=== PATIENT | female | born 1955 ===

== ENCOUNTER 2023-08-04 09:07 | Outpatient (AMB) | payer OTHER, SELFPAY ==
--- NOTE | 2023-08-04 09:36 | MHC.OFFVIS ---
Vital Signs 08/04/23 09:40 Height 5 ft 2 in Weight 259 lb BMI 47.4 Intake Visit Reasons: Gallstones Intake Note: This patient presents for an assessment or gallstones. Patient c/o; reports nausea, reports occasional vomiting, reports RUQ pain, reports electric shock sensation. Conference Director Required: Yes Conference Director Language: Machine Assembler For Puller Over Name: Vladislav Information Interpreted: non-clinical & clinical Accompanied by: Self / Same As Patient Allergies tramadol [TRAMADOL] Allergy (Unknown, Unverified 08/04/23 09:40) ANAPHYLAXIS Tramadol Allergy (Unknown, Uncoded 08/04/23 09:40) anaphylaxis, Swelling Medication List - Last Reconciled 08/04/23 by Jurgen Perez MD albuterol sulfate 90 mcg/actuation inhalation amlodipine 10 mg PO DAILY aspirin 81 mg PO DAILY atorvastatin 40 mg PO DAILY carboxymethylcellulose sodium 0.5% 1 - 2 drps ophthalmic (eye) BID PRN cetirizine 10 mg PO DAILY cholecalciferol (vitamin D3) 25 mcg PO QAM famotidine (Heartburn Relief (famotidine)) mg PO fluconazole mg PO fluticasone propionate 50 mcg/actuation sprays intranasal isosorbide mononitrate ER 30 mg PO QAM loteprednol etabonate 0.5% 1 drp ophthalmic (eye) BID montelukast 10 mg PO QPM olopatadine 0.1% 1 drp ophthalmic (eye) Q6-8H PRN oxycodone 5 mg PO TID PRN pantoprazole 40 mg PO DAILY ropinirole 0.25 mg PO BEDTIME sevelamer carbonate 1,600 mg PO TID HPI Comments Details: 67-year-old female patient presenting with complaints of nausea and vomiting for approximately 1 year increasing over the past month with associated abdominal pain felt mainly in the left lower quadrant but also in the right lower quadrant and right upper quadrant. The pain is brought on sometimes by eating even drinking water. She reports not eating any fatty foods. Patient underwent ultrasound evaluation on 07/14/2023 which revealed multiple mobile gallstones within the gallbladder but a normal gallbladder wall without thickening or pericholecystic fluid. Negative sonographic Olvera sign was noted. She presents today for evaluation for possible cholecystectomy. [facility] Medical History Osteoarthritis Major depression Mixed hyperlipidemia Vitamin D deficiency Morbid obesity Obstructive sleep apnea Hemodialysis access, arteriovenous graft Chronic kidney disease, stage 5 GERD (gastroesophageal reflux disease) Surgical History H/O umbilical hernia repair Bariatric surgery status No pertinent past surgical history Family History Sister Breast cancer Social History Alcohol intake: never Patient Tobacco Use Status: Never used Tobacco Review of Systems Const Reports body aches and Reports stops breathing during sleep Card Denies chest pain GI Reports abdominal pain, Denies heartburn, Denies nausea and Denies vomiting Psych Reports depression Physical Exam Vital Signs: BMI result Body Mass Index 47.4 Const General: no acute distress Nutritional Appearance: obese Orientation/consciousness: patient oriented x3 Limitations: ambulation with walker HEENT Head: Yes normocephalic and Yes atraumatic Ears: hearing grossly normal bilaterally Eyes Sclerae: sclerae normal Resp Effort & Inspection: normal respiratory effort, no audible wheezes, no cough and no respiratory distress GI Inspection: Yes normal to inspection Palpation (GI): Soft to palpation and Tenderness to palpation present (GI) in the LLQ and in the RLQ; not in the RUQ and Olvera's sign negative Percussion: Yes normal to percussion Auscultation: normal bowel sounds Rectal Exam - Female: deferred Neuro General: patient oriented x3 Extrem General: Yes edema Assessment & Plan Assessment & Plan (1) Cholelithiasis: Code(s): K80.20 - Calculus of gallbladder without cholecystitis without obstruction Category: Medical Qualifiers: Cholelithiasis location: gallbladder Cholecystitis presence: without cholecystitis Biliary obstruction: without biliary obstruction Qualified Code(s): K80.20 - Calculus of gallbladder without cholecystitis without obstruction (2) Symptomatic cholelithiasis: Code(s): K80.20 - Calculus of gallbladder without cholecystitis without obstruction Category: Medical Plan 67-year-old female patient presenting with a 1 year history of nausea, vomiting increasing over the past month with some abdominal pain felt mainly in the lower abdomen. Workup with ultrasound of the abdomen did reveal multiple mobile gallstones within the gallbladder but no evidence of cholecystitis. Examination today does reveal tenderness in the lower abdomen with no significant tenderness in the upper abdomen. I recommended further evaluation with a HIDA scan and suggested she return following the study to review the results. If this is normal, a CT abdomen and pelvis may be helpful. Orders: Orders NM hepatobiliary w pharm Today K80.20 - Calculus of gallbladder without cholecystitis without obstruction Coding Level of Care Code New Pt Level 4 (04676) Diagnoses Calculus of gallbladder without cholecystitis without obstruction K80.20 Cholelithiasis location: gallbladder Cholecystitis presence: without cholecystitis Biliary obstruction: without biliary obstruction Symptomatic cholelithiasis K80.20
[2023-08-04 09:40] VITALS: BMI 47.4
== END 2023-08-04 10:09 | disposition home or self-care (01) ==
PROVIDERS: PCP Registered Nurse; Visit Provider Surgery
DX: K80.20 Calculus of gallbladder without cholecystitis without obstruction (principal)
CPT/HCPCS: 99204

== ENCOUNTER → 2023-08-04 09:07 | Outpatient (BNVA) | payer OTHER, SELFPAY | PROVIDERS: PCP Registered Nurse; Visit Provider Surgery | DX: K80.20 Calculus of gallbladder without cholecystitis without obstruction (principal) | CPT/HCPCS: 99202 ==

== ENCOUNTER → 2023-10-13 07:36 | Outpatient (REF) | payer OTHER, SELFPAY ==
--- NOTE | ~2023-10-13 | NM_ITS ---
EXAMINATION: BILIARY TRACT IMAGING STUDY WITH [facility]CK CLINICAL INFORMATION: Calculus of gallbladder without cholecystitis or obstruction.. COMPARISON: No previous biliary scan is available for comparison. The diagnostic CT scan of the abdomen and pelvis, dated 07/12/2019, is available for comparison.. TECHNIQUE: Serial gamma scintillation camera images were obtained over the abdomen for a total observation period of 91 minutes following the intravenous administration of 5 mCi Tc-99m Niharika friend. FINDINGS: There is good concentration of activity in the liver by 5 minutes post injection. Biliary activity is visualized by 15 minutes. The gallbladder is well visualized by 25 minutes. Small bowel is well visualized by 85 minutes. At 60 minutes post radiopharmaceutical injection, a 30-minute infusion of 2.3 micrograms Sincalide was then begun and an additional 30 minutes of images were obtained. There is only minimal gallbladder emptying. At the end of the study there is almost complete clearance of activity from the liver and visualization of some small bowel activity, but there is abnormal retention of activity in the gallbladder. The calculated gallbladder ejection fraction is 21% (normal gallbladder ejection fraction is greater than 35%). NM/NM hepatobiliary w pharm IMPRESSION: 1. Visualization of the gallbladder is evidence of a patent cystic duct and strong evidence against the diagnosis of acute cholecystitis. The common bile duct is patent. Liver function appears normal. 2. Poor gallbladder emptying and a low gallbladder ejection fraction are evidence of impaired gallbladder contractility and most likely due to chronic cholecystitis. Electronically signed by: Kumar Titus MD 11/03/2023 04:37 PM EDT
== END ==
LOC: HO.NUCMED 07:36
PROVIDERS: Visit Provider Surgery
DX: K80.20 Calculus of gallbladder without cholecystitis without obstruction (principal)
CPT/HCPCS: 78227; A9537; J2805

== ENCOUNTER 2023-12-08 09:41 | Outpatient (AMB) | payer OTHER, SELFPAY ==
--- NOTE | 2023-12-08 09:45 | MHC.OFFVIS ---
Vital Signs 12/08/23 09:52 Height 5 ft 2 in Weight 255 lb BMI 46.6 Intake Visit Reasons: HIDA scan results Intake Note: Patient is seen in office for HIDA scan results, following cholelithiasis. Pt c/o:increase pain since last visit, nausea and vomit after every meal HIDA:10/13/23 Test Preparation Tutor Required: Yes Test Preparation Tutor Language: Associate Professor Of Pathology Services: Test Preparation Tutor Offered & Declined Test Preparation Tutor Name: Inez WRIGHT Information Interpreted: non-clinical & clinical Manager Massage Department: Manager Massage Department Present Accompanied by: Self / Same As Patient Allergies tramadol [TRAMADOL] Allergy (Unknown, Unverified 12/08/23 09:53) ANAPHYLAXIS Tramadol Allergy (Unknown, Uncoded 12/08/23 09:53) anaphylaxis, Swelling Medication List - Last Reconciled 12/08/23 by Jurgen Perez MD albuterol sulfate 90 mcg/actuation inhalation amlodipine 10 mg PO DAILY aspirin 81 mg PO DAILY atorvastatin 40 mg PO DAILY carboxymethylcellulose sodium 0.5% 1 - 2 drps ophthalmic (eye) BID PRN cetirizine 10 mg PO DAILY cholecalciferol (vitamin D3) 25 mcg PO QAM famotidine (Heartburn Relief (famotidine)) mg PO fluconazole mg PO fluticasone propionate 50 mcg/actuation sprays intranasal isosorbide mononitrate ER 30 mg PO QAM loteprednol etabonate 0.5% 1 drp ophthalmic (eye) BID montelukast 10 mg PO QPM olopatadine 0.1% 1 drp ophthalmic (eye) Q6-8H PRN oxycodone 5 mg PO TID PRN pantoprazole 40 mg PO DAILY ropinirole 0.25 mg PO BEDTIME sevelamer carbonate 1,600 mg PO TID HPI Comments Details: 67-year-old female patient presenting with complaints of nausea and vomiting for approximately 1 year increasing over the past month with associated abdominal pain felt mainly in the left lower quadrant but also in the right lower quadrant and right upper quadrant. The pain is brought on sometimes by eating even drinking water. She reports not eating any fatty foods. Patient underwent ultrasound evaluation on 07/14/2023 which revealed multiple mobile gallstones within the gallbladder but a normal gallbladder wall without thickening or pericholecystic fluid. Negative sonographic Olvera sign was noted. She returns today to review the recent CCK HIDA scan performed on 10/13/2023. This revealed visualization of the gallbladder consistent with a patent cystic duct and strong evidence against an acute cholecystitis. There was poor emptying of the gallbladder with an ejection fraction of 21% felt to be suggestive of chronic cholecystitis. The patient reported abdominal discomfort similar to her usual gallbladder attacks during the test. She continues to have fatty food intolerance as noted above. [facility] Medical History Osteoarthritis Major depression Mixed hyperlipidemia Vitamin D deficiency Morbid obesity Obstructive sleep apnea Hemodialysis access, arteriovenous graft Chronic kidney disease, stage 5 GERD (gastroesophageal reflux disease) Surgical History H/O umbilical hernia repair Bariatric surgery status No pertinent past surgical history Family History Sister Breast cancer Social History Alcohol intake: never Patient Tobacco Use Status: Never used Tobacco Review of Systems Const Reports body aches and Reports stops breathing during sleep Card Denies chest pain GI Reports abdominal pain, Denies heartburn, Denies nausea and Denies vomiting Psych Reports depression Physical Exam Vital Signs: BMI result Body Mass Index 46.6 Const General: no acute distress Nutritional Appearance: obese Orientation/consciousness: patient oriented x3 Limitations: ambulation with walker HEENT Head: Yes normocephalic and Yes atraumatic Ears: hearing grossly normal bilaterally Eyes Sclerae: sclerae normal Resp Effort & Inspection: normal respiratory effort, no audible wheezes, no cough and no respiratory distress GI Inspection: Yes normal to inspection Palpation (GI): Soft to palpation and Tenderness to palpation present (GI) in the LLQ and in the RLQ; not in the RUQ and Olvera's sign negative Percussion: Yes normal to percussion Auscultation: normal bowel sounds Rectal Exam - Female: deferred Neuro General: patient oriented x3 Extrem General: Yes edema Assessment & Plan Assessment & Plan (1) Symptomatic cholelithiasis: Code(s): K80.20 - Calculus of gallbladder without cholecystitis without obstruction Category: Medical (2) Chronic cholecystitis: Code(s): K81.1 - Chronic cholecystitis Category: Medical Plan 68-year-old female patient on hemodialysis, presenting with complaints of abdominal pain and food intolerance. Ultrasound revealed gallstones within the gallbladder and subsequent HIDA scan confirmed delayed emptying of the gallbladder suggestive of chronic cholecystitis. Discussed the possibility of laparoscopic cholecystectomy including the risks, alternatives and benefits. She consents to the surgery and will schedule the surgery as a short-stay surgery. This will need to be coordinated with her dialysis schedule (). Coding Level of Care Code Est Pt Level 4 (65155) Diagnoses Symptomatic cholelithiasis K80.20 Chronic cholecystitis K81.1
[2023-12-08 09:52] VITALS: BMI 46.6
== END 2023-12-08 10:13 | disposition home or self-care (01) ==
PROVIDERS: PCP Registered Nurse; Visit Provider Surgery
DX: K80.20 Calculus of gallbladder without cholecystitis without obstruction (principal); K81.1 Chronic cholecystitis
CPT/HCPCS: 99214

== ENCOUNTER → 2023-12-08 09:41 | Outpatient (BNVA) | payer OTHER, SELFPAY | PROVIDERS: PCP Registered Nurse; Visit Provider Surgery | DX: K80.44 Calculus of bile duct with chronic cholecystitis without obstruction (principal) | CPT/HCPCS: 99212 ==

== ENCOUNTER → 2024-01-05 09:35 | Outpatient (BNV) | payer OTHER, SELFPAY | PROVIDERS: PCP Internal Medicine; Visit Provider Internal Medicine Cardiovascular Disease | DX: Z01.818 Encounter for other preprocedural examination (principal) | CPT/HCPCS: 93010 ==

== ENCOUNTER 2024-01-12 05:52 | Day surgery (SDC) | payer OTHER, SELFPAY ==
[2024-01-04 11:51] VITALS: BP 142/64; PULSE 106; RESP 16; O2SAT 96; BMI 47.1
--- NOTE | 2024-01-05 09:35 | ECG_ITS ---
Test Reason : preop Blood Pressure : / mmHG Vent. Rate : 082 BPM Atrial Rate : 082 BPM P-R Int : 136 ms QRS Dur : 086 ms QT Int : 406 ms P-R-T Axes : 049 -06 051 degrees QTc Int : 474 ms Normal sinus rhythm Normal ECG When compared with ECG of 17-AUG-2019 20:22, Minimal criteria for Septal infarct are no longer Present Referred By: Hollie Oseguera Electronically Signed By:Thom Andrea
[2024-01-05 10:25] LABS: MANUAL DIFF FLAG NO
[2024-01-05 11:54] LABS: Basophils Percent Auto 0.5 % (0-2); Eosinophils Absolute Auto 0.1 X10*3/uL (0.0-0.4); Eosinophils Percent Auto 1.6 % (0-4); Hematocrit 32.8 % (37.0-47.0); Hemoglobin 10.1 g/dl (12.0-16.0); Imm Gran Abs Auto 0.02 X10*3/uL (0.00-0.03); Imm Gran Pct Auto 0.3 % (0.0-0.4); Lymphocytes Absolute Auto 0.9 X10*3/uL (1.2-4.9); Mean Corpuscular HGB Conc 30.8 g/dl (31.0-35.0); Mean Corpuscular Hemoglobin 31.4 pg (27.0-33.0); Mean Corpuscular Volume 101.9 fL (80.0-98.0); Mean Platelet Volume 10.3 fL (9.4-12.3); Monocytes Absolute Auto 0.6 X10*3/uL (0.1-1.2); Monocytes Percent Auto 9.6 % (2-11); Neutrophils Absolute Auto 4.6 x10*3/uL (2.0-8.3); Platelet Count 152 X10*3/uL (160-400); Red Blood Count 3.22 X10*6/uL (4.20-5.50); Red Cell Distribution Width 14.6 % (11.0-16.0); White Blood Count 6.3 X10*3/uL (4.8-10.8)
[2024-01-05 12:45] LABS: Anion Gap 18 (12-20); Blood Urea Nitrogen 42 mg/dL (9-16); Calcium 10.3 mg/dL (8.4-10.2); Carbon Dioxide 32 mmol/L (22-29); Chloride 97 mmol/L (96-108); Glucose Random 95 mg/dL (60-115); Potassium 4.8 mmol/L (3.3-5.1); Sodium 142 mmol/L (135-145)
[2024-01-05 12:49] LABS: Creatinine Clr Calc Pharmacy 8.2; Estimated Glomerular Filt Rate 5
[2024-01-12] VITALS (11 sets, daily range): BP systolic 147–186; BP diastolic 56–82; PULSE 61–81; RESP 15–20; TEMP 36.4–36.6; O2SAT 95–100
[2024-01-12] MEDS: 0.9 % Sodium Chloride 1,000 ML 100 ML IVCONT (06:41)
[2024-01-12 07:15] LABS: Anion Gap 18 (12-20); Carbon Dioxide 28 mmol/L (22-29); Chloride 103 mmol/L (96-108); Potassium 4.6 mmol/L (3.3-5.1); Sodium 144 mmol/L (135-145)
--- NOTE | 2024-01-12 07:25 | HO.ANESPROP2 ---
Documented by User: Myla Velasco NP 01/06/24 10:56 HPI - Anesthesia Eval Consult details Narrative: 68yo F for Cholecystectomy Laparoscopic, possible open PAT with Dr Oseguera 01/04/24 ESRD with HD on MWF Renal optimized [facility] Active Problems Active Problems: All Active Problems Chronic cholecystitis (Acute) Symptomatic cholelithiasis (Acute) Cholelithiasis (Acute) Past Medical History Medical History (Updated 01/04/24 @ 13:43 by Bhavna Oquendo RN) Claustrophobia Dependent on walker for ambulation Wears dentures Eye drainage Murmur Constipation Spinal stenosis of lumbosacral region Psoriasis Type 2 diabetes mellitus with diabetic chronic kidney disease Low back pain Abdominal pain Nausea & vomiting Hemodialysis patient Neuropathy Asthma HLD (hyperlipidemia) CAD (coronary artery disease) HTN (hypertension) Osteoarthritis Major depression Mixed hyperlipidemia Vitamin D deficiency Morbid obesity Obstructive sleep apnea Hemodialysis access, arteriovenous graft Chronic kidney disease, stage 5 GERD (gastroesophageal reflux disease) Family History Family History Sister Breast cancer Surgical History Surgical History (Updated 01/01/24 @ 15:11 by Bhavna Oquendo, JOSE ANGEL) Hx of tubal ligation History of bilateral carpal tunnel release (~1982) Hx of colonoscopy Hx of cardiac catheterization (06/25/20) Hx of bariatric surgery (~2014) H/O umbilical hernia repair Bariatric surgery status Social History Social History (Updated 01/04/24 @ 13:30 by Bhavna Oquendo RN) Household Members: None Housing: Apartment Are you a primary outdoor emergency care technician to a significant other at home: No Do you presently have visiting nurse or other home services: Yes ([employer] 10 hours/week) Alcohol intake: never Comment: aware of trip hazard Patient Tobacco Use Status: Never used Tobacco Use of substances other than those prescribed or required for medical reasons: No Have you been hit, kicked, punched, or otherwise hurt by someone within the past year? If so, by whom?: No Are you DNR?: No Advance Directives: No Advance Directives Information Provided: Yes Advance Directives on File: No Recently lost weight without trying: No Meds Allergies Allergy/AdvReac Type Severity Reaction Status Date / Time tramadol [TRAMADOL] Allergy Severe ANAPHYLAXIS Verified 01/04/24 12:20 Home Medications ?Medication ?Instructions ?Recorded ?Confirmed ?Last Taken ?Type albuterol sulfate 90 mcg/actuation 90 mcg inhalation Q4-6H PRN 08/04/23 01/04/24 Unknown History aerosol inhaler Shortness Of Breath Or Wheezing amlodipine 10 mg tablet 10 mg PO DAILY 08/04/23 01/04/24 Unknown History aspirin 81 mg tablet,delayed 81 mg PO DAILY 08/04/23 01/04/24 01/11/24 History release atorvastatin 40 mg tablet 40 mg PO DAILY 08/04/23 01/04/24 Unknown History carboxymethylcellulose sodium 0.5 1 - 2 drp ophthalmic (eye) BID PRN 08/04/23 12/08/23 Unknown History % eye drops cetirizine 10 mg tablet 10 mg PO DAILY 08/04/23 01/04/24 Unknown History cholecalciferol (vitamin D3) 25 25 mcg PO QAM 08/04/23 01/04/24 Unknown History mcg (1,000 unit) tablet famotidine 10 mg tablet (Heartburn 10 mg PO DAILY 08/04/23 01/04/24 Unknown History Relief (famotidine)) fluticasone propionate 50 spray intranasal 08/04/23 12/08/23 Unknown History mcg/actuation nasal spray,suspension isosorbide mononitrate 30 mg 30 mg PO QAM 08/04/23 01/04/24 Unknown History tablet,extended release 24 hr loteprednol etabonate 0.5 % eye 1 drp ophthalmic (eye) BID 08/04/23 12/08/23 Unknown History drops,suspension montelukast 10 mg tablet 10 mg PO QPM 08/04/23 01/04/24 Unknown History olopatadine 0.1 % eye drops 1 drp ophthalmic (eye) Q6-8H PRN 08/04/23 12/08/23 Unknown History oxycodone 5 mg tablet 5 mg PO TID PRN Pain 08/04/23 01/04/24 Unknown History pantoprazole 40 mg tablet,delayed 40 mg PO DAILY 08/04/23 01/04/24 Unknown History release ropinirole 0.25 mg tablet 0.25 mg PO BEDTIME 08/04/23 01/04/24 Unknown History sevelamer carbonate 800 mg tablet 1,600 mg PO TID 08/04/23 01/04/24 Unknown History Exam Height,Weight and Vital Signs: Height 5 ft 2 in Weight 116.8 kg Last Vital Signs Pulse 106 H 01/04/24 11:51 Resp 16 01/04/24 11:51 BP 142/64 H 01/04/24 11:51 Pulse Ox 96 01/04/24 11:51 O2 Del Method Room Air 01/04/24 11:51 Pertinent Lab Results Pertinent Lab Results: Laboratory Tests 01/05/24 10:23 WBC 6.3 RBC 3.22 L Hgb 10.1 L Hct 32.8 L MCV 101.9 H MCH 31.4 MCHC 30.8 L RDW 14.6 Plt Count 152 L MPV 10.3 Immature Gran % (Auto) 0.3 Neut % (Auto) 73.0 Lymph % (Auto) 15.0 L Wilbarger % (Auto) 9.6 Eos % (Auto) 1.6 Baso % (Auto) 0.5 Lymph # (Auto) 0.9 L [place] # (Auto) 0.6 Eos # (Auto) 0.1 Baso # (Auto) 0.0 Abs Immat Gran (auto) 0.02 Absolute Neuts (auto) 4.6 Absolute Nucleated RBC 0.000 Nucleated RBC % (auto) 0.0 Sodium 142 Potassium 4.8 Chloride 97 Carbon Dioxide 32 H Anion Gap 18 BUN 42 H Creatinine 7.82 H* Estim Creat Clear Calc 8.2 Estimated GFR 5 Random Glucose 95 Calcium 10.3 H Narrative Narrative: EKG 01/04/24 Vent. Rate : 082 BPM Atrial Rate : 082 BPM P-R Int : 136 ms QRS Dur : 086 ms QT Int : 406 ms P-R-T Axes : 049 -06 051 degrees QTc Int : 474 ms Normal sinus rhythm Normal ECG When compared with ECG of 17-AUG-2019 20:22, Minimal criteria for Septal infarct are no longer Present Assessment and Plan Assessment Anesthesia Assessment: Chart Reviewed Documented by User: Sandra Whitman DO 01/12/24 08:30 HPI - Anesthesia Eval Consult details Narrative: 68yo F for Cholecystectomy Laparoscopic, possible open ESRD with HD on MWF Renal optimized [facility] Past Medical History Medical History (Updated 01/04/24 @ 13:43 by Bhavna Oquendo, JOSE ANGEL) Claustrophobia Dependent on walker for ambulation Wears dentures Eye drainage Murmur Constipation Spinal stenosis of lumbosacral region Psoriasis Type 2 diabetes mellitus with diabetic chronic kidney disease Low back pain Abdominal pain Nausea & vomiting Hemodialysis patient Neuropathy Asthma HLD (hyperlipidemia) CAD (coronary artery disease) HTN (hypertension) Osteoarthritis Major depression Mixed hyperlipidemia Vitamin D deficiency Morbid obesity Obstructive sleep apnea Hemodialysis access, arteriovenous graft Chronic kidney disease, stage 5 GERD (gastroesophageal reflux disease) Family History Family History Sister Breast cancer Family history of problems with anesthesia: No Surgical History Surgical History (Updated 01/01/24 @ 15:11 by Bhavna Oquendo RN) Hx of tubal ligation History of bilateral carpal tunnel release (~1982) Hx of colonoscopy Hx of cardiac catheterization (06/25/20) Hx of bariatric surgery (~2014) H/O umbilical hernia repair Bariatric surgery status History of Problems with Anesthesia: No Social History Social History (Updated 01/04/24 @ 13:30 by Bhavna Oquendo RN) Household Members: None Housing: Apartment Are you a primary outdoor emergency care technician to a significant other at home: No Do you presently have visiting nurse or other home services: Yes ([employer] 10 hours/week) Alcohol intake: never Comment: aware of trip hazard Patient Tobacco Use Status: Never used Tobacco Use of substances other than those prescribed or required for medical reasons: No Have you been hit, kicked, punched, or otherwise hurt by someone within the past year? If so, by whom?: No Are you DNR?: No Advance Directives: No Advance Directives Information Provided: Yes Advance Directives on File: No Recently lost weight without trying: No Meds Allergies Allergy/AdvReac Type Severity Reaction Status Date / Time tramadol [TRAMADOL] Allergy Severe ANAPHYLAXIS Verified 01/04/24 12:20 Home Medications ?Medication ?Instructions ?Recorded ?Confirmed ?Last Taken ?Type albuterol sulfate 90 mcg/actuation 90 mcg inhalation Q4-6H PRN 08/04/23 01/04/24 Unknown History aerosol inhaler Shortness Of Breath Or Wheezing amlodipine 10 mg tablet 10 mg PO DAILY 08/04/23 01/04/24 Unknown History aspirin 81 mg tablet,delayed 81 mg PO DAILY 08/04/23 01/04/24 01/11/24 History release atorvastatin 40 mg tablet 40 mg PO DAILY 08/04/23 01/04/24 Unknown History carboxymethylcellulose sodium 0.5 1 - 2 drp ophthalmic (eye) BID PRN 08/04/23 12/08/23 Unknown History % eye drops cetirizine 10 mg tablet 10 mg PO DAILY 08/04/23 01/04/24 Unknown History cholecalciferol (vitamin D3) 25 25 mcg PO QAM 08/04/23 01/04/24 Unknown History mcg (1,000 unit) tablet famotidine 10 mg tablet (Heartburn 10 mg PO DAILY 08/04/23 01/04/24 Unknown History Relief (famotidine)) fluticasone propionate 50 spray intranasal 08/04/23 12/08/23 Unknown History mcg/actuation nasal spray,suspension isosorbide mononitrate 30 mg 30 mg PO QAM 08/04/23 01/04/24 Unknown History tablet,extended release 24 hr loteprednol etabonate 0.5 % eye 1 drp ophthalmic (eye) BID 08/04/23 12/08/23 Unknown History drops,suspension montelukast 10 mg tablet 10 mg PO QPM 08/04/23 01/04/24 Unknown History olopatadine 0.1 % eye drops 1 drp ophthalmic (eye) Q6-8H PRN 08/04/23 12/08/23 Unknown History oxycodone 5 mg tablet 5 mg PO TID PRN Pain 08/04/23 01/04/24 Unknown History pantoprazole 40 mg tablet,delayed 40 mg PO DAILY 08/04/23 01/04/24 Unknown History release ropinirole 0.25 mg tablet 0.25 mg PO BEDTIME 08/04/23 01/04/24 Unknown History sevelamer carbonate 800 mg tablet 1,600 mg PO TID 08/04/23 01/04/24 Unknown History Exam Exam Date and Time: 01/12/24 0725 Height,Weight and Vital Signs: Height 5 ft 2 in Weight 116.8 kg Last Vital Signs Pulse 106 H 01/04/24 11:51 Resp 16 01/04/24 11:51 BP 142/64 H 01/04/24 11:51 Pulse Ox 96 01/04/24 11:51 O2 Del Method Room Air 01/04/24 11:51 Vital Signs Pulse Rate 106 H 01/04/24 11:51 Respiratory Rate 16 01/04/24 11:51 Blood Pressure 142/64 H 01/04/24 11:51 Pulse Oximetry 96 01/04/24 11:51 Oxygen Delivery Method Room Air 01/04/24 11:51 Temperature 97.5 F 01/12/24 06:10 Pulse Rate 81 01/12/24 06:10 Respiratory Rate 18 01/12/24 06:10 Blood Pressure 152/71 H 01/12/24 06:10 Pulse Oximetry 96 01/12/24 06:10 Oxygen Delivery Method Room Air 01/12/24 06:10 Airway Mallampati Class: IV TM Dist: >3cm Neck ROM: Limited Loose/Missing/Broken Teeth: Yes (edentulous) Heart: S1S2 Lungs: CTAB Assessment and Plan Assessment Anesthesia Assessment: Anesthesia Plan Discussed and Chart Reviewed Final Anesthetic Review Family History of Problems with Anesthesia: No History of Problems with Anesthesia: No NPO: Yes ASA Class: III Final Preanesthetic Review: No Changes in Pt Med Stat, Meds/Allgs Chart Reviewed, Consent Obtained/Reviewed and Anes Risks/Benef Reviewed Patient Risk: Intermediate Procedure Risk: Intermediate Anesthetic Plan Anesthetic Plan: GA and Agree w/ Assess. and Plan Disposition: Standard PACU
--- NOTE | 2024-01-12 07:28 | MHC.SHP ---
Pre-Procedural Eval Section A - 24 Hr Update-Section A only Date of Service: 01/12/24 The patient is an INPATIENT: No Changes since office visit: Yes Patient answered all questions; No Cold of Flu in the past 2 weeks, No New Medical Problems and No Changes in Medication The patient has been examined within 24 hours of the surgical procedure. The History & Physical has been completed within 30 days and I have reviewed it.: Yes Section B - Complete if H&P > 30 days Chief Complaint: Calculus of gallbladder without cholecystitis with Allergies: Allergies Allergy/AdvReac Type Severity Reaction Status Date / Time tramadol [TRAMADOL] Allergy Severe ANAPHYLAXIS Verified 01/04/24 12:20 Plan Diagnosis/Plan: Unchanged I have reviewed the history and physical and performed a pertinent physical examination on my patient. No changes have occurred unless specified. Time Spent With Patient Time: Total time managing care of this patient today ____ minutes.
--- NOTE | 2024-01-12 08:49 | W.PM.OPN ---
Operative Note Operative Note Date of Service: 01/12/24 Narrative: Preoperative diagnosis: Chronic cholecystitis, cholelithiasis Postoperative diagnosis: Chronic cholecystitis, cholelithiasis, adhesions due to previous ventral hernia repair Procedure: Laparoscopic cholecystectomy, extensive lysis of adhesions Surgeon: Jurgen Perez MD Doctor Assistant: ALEKSANDR Martinez Anesthesia: General endotracheal Indications for procedure: 68-year-old female patient presenting with complaints of abdominal pain in the right upper quadrant associated with nausea and vomiting found to have gallstones on radiologic workup. Patient also underwent HIDA scan which revealed a delayed ejection fraction consistent with chronic cholecystitis. Operative findings: Large gallstone at the neck of the gallbladder. Extensive adhesions in the abdominal wall due to a previous laparoscopic hernia repair requiring lysis of adhesions. Specimen: gallbladder Estimated blood loss: Less than 2 mL Complications: None Procedure details: Patient was brought to the OR and placed in a supine position. After administering general anesthesia the patient's abdomen was prepped with ChloraPrep and draped in a sterile fashion. A surgical time-out was called the consent confirmed. Patient received preoperative antibiotics and Venodyne boots were in place. Local anesthesia consisting of 0.5% Sensorcaine without epinephrine was infiltrated in a periumbilical region. A 5 mm incision was made above the umbilicus in a transverse fashion. The Veress needle was then inserted while elevating abdominal cavity with towel clips. After positive drop test the abdomen was insufflated to a pressure of 15 mm of mercury. The Veress needle was then removed and a 5 mm trocar inserted. The camera was inserted in the abdomen explored. Dense adhesions were noted around the umbilicus. A window was found through the omentum and visualization of the gallbladder and liver edge was identified. A 12 mm trocar was then placed in the epigastrium under direct vision. The camera was then placed in the epigastric port and the adhesions around the umbilicus noted from a prior hernia repair. Mesh was noted within the abdomen with dense adhesions. LigaSure was then used to dissect the adhesions off the mesh to allow better visualization of the right upper quadrant. Two 5 mm trocars placed in the right upper quadrant by the dental front office assistant. The patient was placed in reverse Trendelenburg positioning and rotated to the left. The gallbladder was grasped with the fundus and retracted cephalad by the dental front office assistant. The infundibulum was then grasped and retracted away from the liver bed, also by the dental front office assistant. The Dolphin dissected was then used by the surgeon to dissect the peritoneum off the infundibulum to reveal the junction with the cystic duct. Cystic artery was noted slightly medial and posterior to the cystic duct. After obtaining a critical view the cystic duct was doubly clipped and divided. The cystic artery was then doubly clipped and divided. The gallbladder was then dissected off the liver bed using electrocautery with an L hook. Hemostasis was assured all times using the electrocautery. When the gallbladder is completely dissected off the liver bed was placed in an Endo-Catch bag and brought out through the epigastric incision. The gallbladder was sent to pathology for further examination. The abdomen was then re-examined. The liver bed was irrigated and suctioned dry. No bleeding or bile leak could be identified. CO2 was then evacuated and all trocars removed. Fascia was closed at the epigastric incision using a [id number] 0 Polysorb suture. Skin was closed in all incisions using a subcuticular 4 0 Polysorb suture by both the surgeon and dental front office assistant. Sterile dressings consisting of Steri-Strips, 2 x 2 gauze, and Tegaderm were then applied. The patient tolerated the procedure well. Sponge instrument and needle counts reported as correct. The patient was transferred to PACU in stable condition.
--- OUTSIDE RECORDS SUMMARY | 2024-01-15 13:14 | XMS_ITS | Continuity of Care Document ---
Author Organization [facility] Address [address] [place] [address]- Care Team Providers Care Feed Mill Supervisor Name Role Phone Rolly DUBON, Wendy Primary Care Physician Encounter [facility] [place] Date(s): 02/03/23 - 03/05/23 [facility] [address] [place] [address]- Attending Physician: Carmen Murdock Admitting Physician: AdmtrCarmen Referring Physician: Admtr, Ar8 Allergies, Adverse Reactions, Alerts Substance Reaction Severity Status traMADol 1 sob Active 1Tolerates oxycodone 03/14/19 Immunizations Given and Recorded Vaccine Date Status Refusal Reason influenza virus vaccine, inactivated 11/28/14 Bk rded influenza virus vaccine, inactivated 12/13/13 Give n influenza virus vaccine, inactivated 1 01/14/13 Gi rima influenza virus vaccine, inactivated 2 10/31/11 Gi rima influenza virus vaccine, inactivated 3 11/22/10 Gi rima Zoster Vaccine Live 4 11/27/14 Given tetanus/diphtheria/pertussis, acel(Tdap) 10/28/12 Given pneumococcal 23-valent vaccine 5 07/11/11 Given 1Admin Note: vis given 09/17/2012 2Admin Note: vis given 08/25/11 3Admin Note: VIS GIVEN 09/17/2010 4Result Comment: [11/27/2014] Sterile Diluent Lot# [id number]; Exp: 03/28/2017 5Admin Note: VIS GIVEN 11/28/08 Medications acetaminophen 325 mg oral tablet 650 mg, By Mouth, Every 4 hours, PRN, Refills 0, Maintenance, Pain , Mild, 08/12/17 13:08:48 EDT Start Date: 08/12/17 Status: Ordered albuterol 0.083% inhalation solution 3 mL = 2.5 mg, Inhalation, Every 6 hours, PRN for wheezing, use as needed for wheezing, # 60 each, 11 Refills, Maintenance, 09/01/14 9:41:35, Solution, 3 mL Inhalation Every 6 hours,PRN:for wheezing,Instr:use as needed for wheezing Start Date: 09/01/14 Status: Ordered amLODIPine 10 mg oral tablet 1 tablet = 10 mg, By Mouth, Daily, # 30 tablet, 0 Refills, Maintenance, 10/27/14 11:56:08, Tablet Start Date: 10/27/14 Status: Ordered aspirin 81 mg oral enteric coated tablet 1 tablet = 81 mg, By Mouth, Daily, # 30 tablet, 11 Refills, Maintenance, 09/01/14 9:58:27, EC Tablet Start Date: 09/01/14 Status: Ordered atorvastatin 80 mg oral tablet 1 tablet = 80 mg, By Mouth, Daily, # 30 tablet, 0 Refills, Maintenance, 06/26/20 12:05:00 EDT, Tablet, [facility] #[id number], Partial fill upon patient request if the prescription is for a schedule II opioid drug., 158, cm, 05/10/20 10:52:00 EDT... Start Date: 06/26/20 Stop Date: 07/26/20 Status: Ordered Claritin 10 mg oral tablet 10 mg, 1, tablet, By Mouth, Daily, # 30 tablet, Refills 2, Tot. Refills 2, Maintenance, 07/09/16 9:35:30, Route to Pharmacy Electronically, [id number], [facility] [id number] Start Date: 07/09/16 Status: Ordered Colace sodium 100 mg oral capsule 1 capsule = 100 mg, By Mouth, 2 times a day, PRN for constipation, # 20 capsule, 0 Refills, Maintenance, 10/27/14 10:53:09, Capsule Start Date: 10/27/14 Status: Ordered fluticasone-salmeterol 250 mcg-50 mcg inhalation powder 1, puffs, Inhalation, 2 times a day, # 60 each, Refills 11, Tot. Refills 11, Maintenance, 07/19/18 10:23:02 EDT, Inhaler, Route to Pharmacy Electronically, [id number], [facility] [id number] Start Date: 07/19/18 Stop Date: 07/14/19 Status: Ordered furosemide 80 mg oral tablet 80 mg, By Mouth, Daily, # 30 tablet, Refills 0, Tot. Refills 0, Maintenance, 08/12/17 12:47:28 EDT,Print Requisition Start Date: 08/12/17 Stop Date: 09/11/17 Status: Ordered isosorbide mononitrate 30 mg oral tablet, extended release 30 mg, 1, tablet, By Mouth, Daily in AM, # 90 tablet, Refills 0, Tot. Refills 0, Maintenance, 08/07/20 16:42:00 EDT, Route to Pharmacy Electronically, [id number], Partial fill upon patient request if the prescription is for a schedule II... Start Date: 08/07/20 Status: Ordered melatonin 5 mg oral tablet 1 tablet = 5 mg, By Mouth, Daily at bedtime, PRN for insomnia, # 60 tablet, 0 Refills, Maintenance,03/17/19 16:03:00 EST, Tablet Start Date: 03/17/19 Status: Ordered montelukast 10 mg oral tablet = 10 mg, By Mouth, Daily before dinner, # 30 each, 11 Refills, Maintenance, 09/01/14 9:41:36, Tablet, 10 mg By Mouth Daily before dinner,x30 days Start Date: 09/01/14 Stop Date: 08/27/15 Status: Ordered nitroglycerin 0.4 mg sublingual tablet = 0.4 mg, Sublingual, Every 5 minutes, PRN Chest Pain, # 100 tablet, 0 Refills, Maintenance, 06/26/20 12:04:00 EDT, Tablet, [facility] #[id number], Partial fill upon patient request if the prescription is for a schedule II opioid drug., 158, cm,... Start Date: 06/26/20 Status: Ordered omeprazole 20 mg oral delayed release tablet 1 tablet = 20 mg, By Mouth, Daily, # 30 tablet, 0 Refills, Maintenance, 03/17/19 16:03:00 EST, EC Tablet Start Date: 03/17/19 Status: Ordered oxyCODONE 5 mg oral capsule 1 capsule = 5 mg, By Mouth, Every 6 hours, PRN for pain, 0 Refills, Maintenance, 04/02/18 9:57:15 EST, Capsule Start Date: 04/02/18 Status: Ordered ProAir HFA 90 mcg/inh inhalation aerosol with adapter 1, puffs, Inhalation, Every 6 hours, PRN, # 2 each, Refills 0, Tot. Refills 0, Maintenance, 07/19/18 10:24:10 EDT, Aerosol, Route to Pharmacy Electronically, [id number], [facility] [id number] Start Date: 07/19/18 Stop Date: 08/18/18 Status: Ordered sevelamer carbonate 800 mg oral tablet 2 tablet = 1,600 mg, By Mouth, 3 times a day, # 90 tablet, 0 Refills, Maintenance, 06/22/20 11:28:00 EDT, Tablet, Partial fill upon patient request if the prescription is for a schedule II opioid drug. Start Date: 06/22/20 Status: Ordered Vitamin D3 1000 intl units oral tablet 1 tablet = 1,000 International_Units, By Mouth, Daily, # 30 tablet, 0 Refills, Maintenance, 06/22/20 11:28:00 EDT, Tablet, Partial fill upon patient request if the prescription is for a schedule II opioid drug. Start Date: 06/22/20 Status: Ordered Zofran 4 mg oral tablet 1 tablet = 4 mg, By Mouth, Every 8 hours, PRN as needed for nausea/vomiting, 0 Refills, Maintenance, 06/01/17 10:43:29 EDT, Tablet Start Date: 06/01/17 Status: Ordered Problem List Condition Confirmation Course Effective Dates Status H ealth Status Informant Anemia Confirmed Active Asthma Confirmed Active Chronic low back pain Confirmed Active Chronic kidney disease (CKD) stage 3 1 Confirmed Active Diabetes mellitus Confirmed Active Diabetic neuropathy Confirmed Active End stage renal disease Confirmed Active HTN - Hypertension Confirmed Active Labial cyst Confirmed 08/11/18 Active Non-Italian speaking patient - 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 Follows with [facility] Social History Social History Type Response Smoking Status Former smoker, quit more than 30 days ago entered on: 04/02/18 Sex Cardiology * Event Display: EKG Non BH Authored Date: Patient Care team information Care Team Personnel Name: Martha Fernandez NP Position: Reference Physician Member Role: Primary Care Nurse Address: Address: [address] [place] [address]- [place] Name: Ruthie Mosqueda Position: [facility] Outreach Member Role: Lifetime Consulting Physician Name: Rosaura Sy MD Position: [facility] Outreach Member Role: Lifetime Consulting Physician Name: Garland Jaeger DO Position: [facility] Renal MD Member Role: Lifetime Consulting Physician Address: Address: [address] [place] [address] [address] [facility] [place] [address]- Name: Clem Bright NP Position: [facility] PCO Associate Professional Member Role: Primary Care Nurse Address: Address: [address] [place] [address] [address] [place] [address]- [place] Name: Surekha Yun RN Position: [facility] RN Member Role: Primary Care Nurse Name: Wendy Lofton NP Position: [facility] PCO Associate Professional Member Role: PCP Address: Address: [address] [place] [address]- [place] Name: Simran Dupont RN Position: [facility] SN RN Member Role: Primary Care Nurse Care Team Related Persons Name: LORRAINE YADAV Address: home [address] [place] [address] Name: GLEN ORTIZ Address: [address] [place] [address] Name: JESUS BRAN Address: home [place]ESS [id number]
--- OUTSIDE RECORDS SUMMARY | 2024-01-15 13:14 | XMS_ITS | Continuity of Care Document ---
Author Organization [facility] Address [address] [place] [address]- Care Team Providers Care Orientation And Mobility Instructor Name Role Phone Not on Staff, PCP Primary Care Physician Unavail able Encounter [facility] [place] Date(s): 11/10/23 - 12/10/[address] [address]- Attending Physician: Carmen Murdock Admitting Physician: AdmCarmen morgan Referring Physician: AdmtrCarmen Allergies, Adverse Reactions, Alerts Substance Reaction Severity [...] 09/17/2010 4Result Comment: [11/27/2014] Sterile Diluent Lot# [id number]; Exp: 03/28/2017 5Admin Note: VIS GIVEN 11/28/08 [...] 0 Refills, Maintenance, 06/26/20 12:05:00 EDT, Tablet, [facility] #[id number], Partial fill upon patient request if the prescription is for a schedule II opioid drug., 158, cm, 05/10/20 10:52:00 EDT... Start Date: 06/26/20 Stop Date: 07/26/20 Status: Ordered Claritin 10 mg oral tablet 10 mg, 1, tablet, By Mouth, Daily, # 30 tablet, Refills 2, Tot. Refills 2, Maintenance, 07/09/16 9:35:30, Route to Pharmacy Electronically, [id number], [facility] [id number] Start Date: 07/09/16 Status: Ordered Colace sodium 100 mg oral capsule 1 capsule = 100 mg, By Mouth, 2 times a day, PRN for constipation, # 20 capsule, 0 Refills, Maintenance, 10/27/14 10:53:09, Capsule Start Date: 10/27/14 Status: Ordered esomeprazole 20 mg oral enteric coated capsule 1 capsule = 20 mg, By Mouth, 2 times a day, 30-60 min before eating, # 60 capsule, 3 Refills, Maintenance, 10/06/23 14:05:00 EDT, [id number], Partial fill upon patient request if the prescription is for a schedule II opioid drug., 158, c... Start Date: 10/06/23 Status: Ordered fluticasone-salmeterol 250 mcg-50 mcg inhalation powder 1, puffs, Inhalation, 2 times a day, # 60 each, Refills 11, Tot. Refills 11, Maintenance, 07/19/18 10:23:02 EDT, Inhaler, Route to Pharmacy Electronically, [id number], [facility] [id number] Start Date: 07/19/18 Stop Date: 07/14/19 Status: Ordered furosemide 80 mg oral tablet 80 mg, By Mouth, Daily, # 30 tablet, Refills 0, Tot. Refills 0, Maintenance, 08/12/17 12:47:28 EDT,Print Requisition Start Date: 08/12/17 Stop Date: 09/11/17 Status: Ordered Golytely - oral powder for reconstitution See Instructions, Follow instructions from GI, # 4,000 mL, 0 Refills, Maintenance, 10/06/23 14:06:00 EDT, [id number], Partial fill upon patient request if the prescription is for a schedule II opioid drug., Follow instructions from GI, 1... Start Date: 10/06/23 Status: Ordered isosorbide mononitrate 30 mg oral tablet, extended release 30 mg, 1, tablet, By Mouth, Daily in AM, # 90 tablet, Refills 0, Tot. Refills 0, Maintenance, 08/07/20 16:42:00 EDT, Route to Pharmacy Electronically, [id number], Partial fill upon patient request [...] 0 Refills, Maintenance, 06/26/20 12:04:00 EDT, Tablet, [facility] #[id number], Partial fill upon patient request if the prescription is for a schedule II opioid drug., 158, cm,... Start Date: 06/26/20 Status: Ordered oxyCODONE 5 mg oral capsule [...] 10:24:10 EDT, Aerosol, Route to Pharmacy Electronically, [id number], [facility] [id number] Start Date: 07/19/18 Stop Date: 08/18/18 Status: Ordered Readi-Cat 2 Smoothie [place] 2% oral suspension See Instructions, as instructed by Radiology, # 2 each, 0 Refills, Maintenance, 10/06/23 14:10:00 EDT, [id number], please favor per patient preference, as instructed by Radiology, 158, cm, 10/06/23 13:28:00 EDT, Height, 116.3, kg, ... Start Date: 10/06/23 Status: Ordered sevelamer carbonate 800 mg oral tablet 2 tablet = 1,600 mg, By Mouth, 3 times a day, # 90 tablet, 0 Refills, Maintenance, 06/22/20 11:28:00 EDT, Tablet, Partial fill upon patient request if the prescription is for a schedule II opioid drug. Start Date: 06/22/20 Status: Ordered sucralfate 1 gm/10 ml oral suspension 5 mL = 0.5 Gm, By Mouth, 3 times a day before meals and bedtime, # 600 mL, 3 Refills, Maintenance, 10/06/23 14:05:00 EDT, [id number], Partial fill upon patient request if the prescription is for a schedule II opioid drug., 158, cm, 10/05... 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 Follows with [facility] Social History Social History Type Response Smoking Status Former smoker, quit more than 30 days ago entered on: 04/02/18 Sex Patient Care team information Care Team Personnel Name: Martha Fernandez NP Position: Reference Physician Member Role: Primary Care Nurse Address: Address: [address] [place] [address]- Name: Ruthie Mosqueda Position: [facility] Outreach Member Role: Lifetime Consulting Physician Name: Rosaura Sy MD Position: [facility] Outreach Member Role: Lifetime Consulting Physician Name: Garland Jaeger DO Position: [facility] Renal MD Member Role: Lifetime Consulting Physician Address: Address: [address] [facility] [facility] [place] [place] - Name: Not on Staff, PCP Position: [facility] Physician (General Medicine) Member Role: PCP Name: Clem Bright NP Position: [facility] PCO Associate Professional Member Role: Primary Care Nurse Address: Address: [address] [place] [address] 3rd [place] [address]- Name: Surekha Yun RN Position: [facility] RN Member Role: Primary Care Nurse Name: Simran Dupont RN Position: [facility] SN RN Member Role: Primary Care Nurse Care Team Related Persons Name: LORRAINE YADAV Address: home [address] [place] [address] Name: GLEN ORTIZ Address: [address] [place] [address] Name: JESUS BRAN Address: home [place] [id number]
--- OUTSIDE RECORDS SUMMARY | 2024-01-15 13:14 | XMS_ITS | Continuity of Care Document ---
Author Organization [facility] Delonte Albert n's [facility] Address [address], [address]t [place] [address]- Care Team Providers Care Marketing Program Manager Name Role Phone Wendy Lofton NP Primary Care Physician Encounter [facility] Date(s): 08/06/23 - 08/13/23 [facility] Gable[facility]ilda Dean[facility] [address], 4th [address] [place], [place] [address] Attending Physician: Blessing Nielsen DO Allergies, Adverse Reactions, Alerts Substance Reaction Severity [...] 09/17/2010 4Result Comment: [11/27/2014] Sterile Diluent Lot# [id number]; Exp: 03/28/2017 5Admin Note: VIS GIVEN 11/28/08 [...] 0 Refills, Maintenance, 06/26/20 12:05:00 EDT, Tablet, [facility][id number], Partial fill upon patient request if the prescription is for a schedule II opioid drug., 158, cm, 05/10/20 10:52:00 EDT... Start Date: 06/26/20 Stop Date: 07/26/20 Status: Ordered Claritin 10 mg oral tablet 10 mg, 1, tablet, By Mouth, Daily, # 30 tablet, Refills 2, Tot. Refills 2, Maintenance, 07/09/16 9:35:30, Route to Pharmacy Electronically, [id number], [facility] [address] Start Date: 07/09/16 Status: Ordered Colace sodium [...] 10:23:02 EDT, Inhaler, Route to Pharmacy Electronically, [id number], 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 Follows with [facility]phrology Vital Signs Most recent to oldest [Reference Range]: 1 Height 158 cm (08/06/23 11:20 AM) Weight 116.3 kg (08/06/23 11:20 AM) Body Mass Index [18.5-24.99 kg/m2] 46.59 kg/m2 *>HHI* (08/06/23 11:20 AM) Blood Pressure [90-138/55-84 mm Hg] 134/ 68mm Hg (08/06/23 11:20 AM) Blood pressure sites Arm, right (08/06/23 11:20 AM) Dry Weight 116.3 kg (08/06/23 11:20 AM) Weight Obtained Via Standing scale (08/06/23 11:20 AM) Dry Weight Obtained Via Standing scale (08/06/23 11:20 AM) Social History Social History Type Response Smoking Status Former smoker, quit more than 30 days ago entered on: 04/02/18 Sex Patient Care team information Care Team Personnel Name: Martha Fernandez NP Position: Reference Physician Member Role: Primary Care Nurse Address: Address: [address] [place] [address]- Name: Ruthie Mosqueda Position: [facility] Outreach Member Role: Lifetime Consulting Physician Name: Rosaura Sy MD Position: [facility] Outreach Member Role: Lifetime Consulting Physician Name: Garland Jaeger DO Position: [facility] Renal MD Member Role: Lifetime Consulting Physician Address: Address: [address] [place] [address] [address] [facility] [place] [address]- Name: Clem Bright NP Position: [facility] PCO Associate Professional Member Role: Primary Care Nurse Address: Address: [address] [place] [address] 3rd [place] [address]- Name: Surekha Yun RN Position: [facility] RN Member Role: Primary Care Nurse Name: Wendy Lofton NP Position: [facility] PCO Associate Professional Member Role: PCP Address: Address: [address] [place] [address], [address] [place] [address]- [place] Name: Simran Dupont RN Position: S SN RN Member Role: Primary Care Nurse Care Team Related Persons Name: LORRAINE YADAV Address: home [address] [place] [address] Name: GLEN ORTIZ Address: home [address] [place] [address] Name: JESUS BRAN Address: home [place]ESS [phone] [address]
--- OUTSIDE RECORDS SUMMARY | 2024-01-15 13:14 | XMS_ITS | Continuity of Care Document ---
Author Organization [facility] Address [address] [place] [address]- Care Team Providers Care Web Merchant Name Role Phone Rolly DUBON, Wendy Primary Care Physician Encounter [facility] [id number] Date(s): 04/09/22 - 08/07/22 [facility] [address] [place] [address]- Encounter Diagnosis Encounter for screening colonoscopy(Discharge Diagnosis) - 07/07/22 Attending Physician: Wilmer Bain MD Referring Physician: Wendy Lofton NP Allergies, Adverse Reactions, Alerts Substance Reaction Severity [...] 09/17/2010 4Result Comment: [11/27/2014] Sterile Diluent Lot# [id number]; Exp: 03/28/2017 5Admin Note: VIS GIVEN 11/28/08 [...] 0 Refills, Maintenance, 06/26/20 12:05:00 EDT, Tablet, [facility][id number], Partial fill upon patient request if the prescription is for a schedule II opioid drug., 158, cm, 05/10/20 10:52:00 EDT... Start Date: 06/26/20 Stop Date: 07/26/20 Status: Ordered Claritin 10 mg oral tablet 10 mg, 1, tablet, By Mouth, Daily, # 30 tablet, Refills 2, Tot. Refills 2, Maintenance, 07/09/16 9:35:30, Route to Pharmacy Electronically, [id number], [facility] [address] Start Date: 07/09/16 Status: Ordered Colace sodium [...] 10:23:02 EDT, Inhaler, Route to Pharmacy Electronically, [id number], [facility] [address]782 Start Date: 07/19/18 Stop Date: 07/14/19 Status: [...] 0 Refills, Maintenance, 06/26/20 12:04:00 EDT, Tablet, [facility] #[id number], Partial fill upon patient request if the [...] 10:24:10 EDT, Aerosol, Route to Pharmacy Electronically, [id number], [facility] [address] Start Date: 07/19/18 Stop Date: 08/18/18 Status: [...] Confirmed Active Labial cyst Confirmed 08/11/18 Active Non-Ghanaian speaking patient - pulmonary disease specialist 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 Follows with [facility]ph[facility] Diagnosis Diagnosis Type Effective Dates Health Status Clinical Service Informant Encounter for screening colonoscopy Discharge Diagnosis 07/07/22 Social History Social History Type Response Smoking Status Former smoker, quit more than 30 days ago entered on: 04/02/18 Sex Patient Care team information Care Team Personnel Name: Martha Fernandez NP Position: Reference Physician Member Role: Primary Care Nurse Address: Address: [address] [place] [address]- Name: Ruthie Mosqueda Position: [facility] Outreach Member Role: Lifetime Consulting Physician Name: Rosaura Sy MD Position: [facility] Outreach Member Role: Lifetime Consulting Physician Address: Address: [address] [place] [address]- Name: Garland Jaeger DO Position: [facility] Renal MD Member Role: Lifetime Consulting Physician Address: Address: [address] [place] [address] [address] [facility] [place] [address]- [place] Name: Shun Ulloa Position: [facility] TA Member Role: Lifetime Consulting Physician Name: Clem Bright NP Position: [facility] PCO Associate Professional Member Role: Primary Care Nurse Address: Address: [address] [place] [address] 3rd [place] [address]- [place] Name: Surekha Yun RN Position: [facility] RN Member Role: Primary Care Nurse Name: Wendy Lofton NP Position: [facility] PCO Associate Professional Member Role: PCP Address: Address: [address] [place] [address] [address] [place] [address]- [place] Name: Simran Dupont RN Position: [facility] SN RN Member Role: Primary Care Nurse Care Team Related Persons Name: LORRAINE YADAV Address: home [address] [place] [address] Name: GLEN ORTIZ Address: home [address] [place] [address] Name: JESUS BRAN Address: home [place] [address]ESS [phone]
--- OUTSIDE RECORDS SUMMARY | 2024-01-15 13:14 | XMS_ITS | Continuity of Care Document ---
Author Organization [facility] Address [address] [place] [address]- Care Team Providers Care Order Checker Name Role Phone Wendy Lofton NP Primary Care Physician [phone] Encounter [facility] Date(s): 09/13/19 - 10/13/19 [facility] [address] [place] [address]- [facility] Attending Physician: Carmen Murdock Admitting Physician: AdmtrCarmen Referring Physician: Admtr, Homar8 Allergies, Adverse Reactions, Alerts Substance Reaction Severity Status traMADol sob Active Immunizations Given and Recorded Vaccine Date Status [...] 09/17/2010 4Result Comment: [11/27/2014] Sterile Diluent Lot# [id number]; Exp: 03/28/2017 5Admin Note: VIS GIVEN 11/28/08 [...] Tablet Start Date: 09/01/14 Status: Ordered atorvastatin 20 mg oral tablet 1 tablet = 20 mg, By Mouth, Daily, D/C simvastatin, # 30 tablet, 11 Refills, Maintenance, 09/01/14 9:41:40, Tablet, 1 tablet By Mouth Daily,Instr:D/C simvastatin Start Date: 09/01/14 Status: Ordered Claritin 10 mg oral tablet 10 mg, 1, tablet, By Mouth, Daily, # 30 tablet, Refills 2, Tot. Refills 2, Maintenance, 07/09/16 9:35:30, Route to Pharmacy Electronically, [id number], [facility] [address]31 Start Date: 07/09/16 Status: Ordered Colace sodium [...] 10:23:02 EDT, Inhaler, Route to Pharmacy Electronically, [id number], [facility] [address] Start Date: 07/19/18 Stop Date: 07/14/19 Status: Ordered furosemide 80 mg oral tablet 80 mg, By Mouth, Daily, # 30 tablet, Refills 0, Tot. Refills 0, Maintenance, 08/12/17 12:47:28 EDT,Print [facility] Start Date: 08/12/17 Stop Date: 09/11/17 Status: Ordered melatonin 5 mg oral tablet [...] Date: 09/01/14 Stop Date: 08/27/15 Status: Ordered omeprazole 20 mg oral delayed [...] 10:24:10 EDT, Aerosol, Route to Pharmacy Electronically, [id number], [facility] [address] Start Date: 07/19/18 Stop Date: 08/18/18 Status: Ordered Zofran 4 mg oral tablet 1 tablet = 4 mg, By Mouth, Every 8 hours, PRN as needed for nausea/vomiting, 0 Refills, Maintenance, 06/01/17 10:43:29 EDT, Tablet Start Date: 06/01/17 Status: Ordered Problem List Condition Effective Dates Status Health Status Inform ant Anemia(Confirmed) Active Asthma(Confirmed) Active Breast cyst, solitary(Confirmed) 07/07/11 Active Chronic low back pain(Confirmed) Active CKD stage 3(Confirmed) 1 Active Diabetes mellitus(Confirmed) Active Diabetic neuropathy(Confirmed) Active End stage renal disease(Confirmed) Active HTN - Hypertension(Confirmed) Active Labial cyst(Confirmed) 08/11/18 Active Monoclonal gammopathy(Confirmed) Active Neuropathy(Confirmed) Active GABRIELE (obstructive sleep apnea)(Confirmed) Active Osteoarthritis(Confirmed) Active Umbilical hernia(Confirmed) Active 1CKD Stage III. Follows with [facility] Nephrology Social History Social History Type Response Smoking Status Former smoker, quit more than 30 days ago entered on: 04/02/18 Sex
--- OUTSIDE RECORDS SUMMARY | 2024-01-15 13:14 | XMS_ITS | Continuity of Care Document ---
Author Organization [facility] Address [address] [place] [address]- Care Team Providers Care Electronic Warfare Officer Name Role Phone Wendy Lofton NP Primary Care Physician Encounter [facility] Date(s): 05/10/20 - 06/09/20 [facility] [address] [place] [address] Attending Physician: AdmCarmen morgan Admitting Physician: AdmtrCarmen Referring Physician: Admtr, Ar8 [...] 09/17/2010 4Result Comment: [11/27/2014] Sterile Diluent Lot# [id number]; Exp: 03/28/2017 5Admin Note: VIS GIVEN 11/28/08 [...] Maintenance, 07/09/16 9:35:30, Route to Pharmacy Electronically, [id number], [facility] [address] Start Date: 07/09/16 Status: Ordered Colace sodium [...] 10:23:02 EDT, Inhaler, Route to Pharmacy Electronically, [id number], [facility] [address] Start Date: 07/19/18 Stop Date: 07/14/19 Status: [...] 10:24:10 EDT, Aerosol, Route to Pharmacy Electronically, [id number], [facility] [address] Start Date: 07/19/18 Stop Date: 08/18/18 Status: [...] hernia(Confirmed) Active 1CKD Stage III. Follows with [facility]ph[facility] Social History Social History Type Response Smoking Status Former smoker, quit more than 30 days ago entered on: 04/02/18 Sex
--- OUTSIDE RECORDS SUMMARY | 2024-01-15 13:14 | XMS_ITS | Continuity of Care Document ---
Author Organization [facility] Address [address] [place] [address]- Care Team Providers Care Drier Unloader Name Role Phone Wendy Lofton NP Primary Care Physician [phone] Encounter [facility] Date(s): 10/19/20 - 10/19/[address] [address]- Encounter Diagnosis Left shoulder pain(Final) - 10/19/20 Discharge Disposition: A-D/C Home Attending Physician: Alison Swartz MD Admitting Physician: Alison Swartz MD Referring Physician: Not on Staff, Referring MD Allergies, Adverse Reactions, Alerts Substance Reaction Severity [...] 09/17/2010 4Result Comment: [11/27/2014] Sterile Diluent Lot# [id number]; Exp: 03/28/2017 5Admin Note: VIS GIVEN 11/28/08 [...] 0 Refills, Maintenance, 06/26/20 12:05:00 EDT, Tablet, [facility] #[id number], Partial fill upon patient request if the prescription is for a schedule II opioid drug., 158, cm, 05/10/20 10:52:00 EDT... Start Date: 06/26/20 Stop Date: 07/26/20 Status: Ordered Claritin 10 mg oral tablet 10 mg, 1, tablet, By Mouth, Daily, # 30 tablet, Refills 2, Tot. Refills 2, Maintenance, 07/09/16 9:35:30, Route to Pharmacy Electronically, [id number], [facility] [address] Start Date: 07/09/16 Status: Ordered Colace sodium [...] 10:23:02 EDT, Inhaler, Route to Pharmacy Electronically, [id number], [facility] [address] Start Date: 07/19/18 Stop Date: 07/14/19 Status: [...] 0 Refills, Maintenance, 06/26/20 12:04:00 EDT, Tablet, [facility] #[id number], Partial fill upon patient request if the [...] 10:24:10 EDT, Aerosol, Route to Pharmacy Electronically, [id number], [facility] [address] Start Date: 07/19/18 Stop Date: 08/18/18 Status: [...] hernia(Confirmed) Active 1CKD Stage III. Follows with [facility] Nephrology Results Radiology Reports * Exam Date Time Procedure Performing Provider Status 10/19/20 12:53 PM Chest 2 Views Frontal and Lat Marylu Ware; Luz (Verified) Notes: (Chest 2 Views Frontal and Lat) Reason For Exam: Angina RESULT: Chest 2 Views Frontal and Lat Chest 2 Views Frontal and Lat Hx of Present Illness: pt states thaat the pain was on the L shoulder arm neck and shoulder as wellas a headache. pt states this is something that happens offten when i have panic attacks, i am currently not in any pain .; Reason: Angina; Clinical Question(s): CHF COMPARISON: 06/22/2020 FINDINGS: LINES AND TUBES: None. LUNGS AND PLEURA: Clear lungs. Normal pulmonary vascularity. No pleural effusion. No pneumothorax. HEART, MEDIASTINUM AND ANYA: Heart is normal in size. Normal upper mediastinal and hilar contour. BONES AND SOFT TISSUES: No acute abnormality. IMPRESSION: No acute abnormality. WSN: [id number] Ordering Physician: Chepe Farmer Dictated By: Pierre Smith MD Dictated Date/Time: 10/19/20 1:04 pm Reviewed By: Pierre Smith MD Signed By: Pierre Smith MD Signed Date/Time: 10/19/20 1:04 pm Transcribed By: KALYANI Transcribed Date/Time: 10/19/20 1:04 pm Vital Signs Most recent to oldest [Reference Range]: 1 Oxygen Saturation [94-100 %] 98 % (10/19/20 10:55 AM) Pulse Rate [55-90 bpm] 79 bpm (10/19/20 10:55 AM) Blood Pressure [90-138/55-84 mm Hg] 118/ 68mm Hg (10/19/20 10:55 AM) Respiratory Rate [16-30 br/min] 18 br/mi n (10/19/20 10:55 AM) Temperature [96.8-100.4 DegF] 98.2 DegF (10/19/20 10:55 AM) Liters per Minute 0 L/min (10/19/20 10:55 AM) Mode of Delivery (Oxygen) Room air (10/19/20 10:55 AM) Blood pressure sites Arm, right (10/19/20 10:55 AM) Temperature Route Oral (10/19/20 10:55 AM) Social History Social History Type Response Smoking Status Former smoker, quit more than 30 days ago entered on: 04/02/18 Sex
--- OUTSIDE RECORDS SUMMARY | 2024-01-15 13:14 | XMS_ITS | Continuity of Care Document ---
Author Organization [facility] Address [address] [place] [address]- Care Team Providers Care Instructor Business Education Name Role Phone Rolly DUBON, Wendy Primary Care Physician [place] [facility] [place] 11/06/22 - 03/05/23 [facility] [address] [place] [address]- Attending Physician: Ivan DUBON, Nicolas Arrieta Admitting Physician: Ivan DUBON, Nicolas Arrieta Referring Physician: Rolly DUBON, Wendy Allergies, Adverse Reactions, Alerts Substance Reaction Severity [...] 09/17/2010 4Result Comment: [11/27/2014] Sterile Diluent Lot# [id number]; Exp: 03/28/2017 5Admin Note: VIS GIVEN 11/28/08 [...] 0 Refills, Maintenance, 06/26/20 12:05:00 EDT, Tablet, [facility] #[id number], Partial fill upon patient request if the prescription is for a schedule II opioid drug., 158, cm, 05/10/20 10:52:00 EDT... Start Date: 06/26/20 Stop Date: 07/26/20 Status: Ordered Claritin 10 mg oral tablet 10 mg, 1, tablet, By Mouth, Daily, # 30 tablet, Refills 2, Tot. Refills 2, Maintenance, 07/09/16 9:35:30, Route to Pharmacy Electronically, [id number], [facility] [address] Start Date: 07/09/16 Status: Ordered Colace sodium [...] 10:23:02 EDT, Inhaler, Route to Pharmacy Electronically, [id number], [facility] [address] Start Date: 07/19/18 Stop Date: 07/14/19 Status: [...] 0 Refills, Maintenance, 06/26/20 12:04:00 EDT, Tablet, [facility] #[id number], Partial fill upon patient request if the [...] 10:24:10 EDT, Aerosol, Route to Pharmacy Electronically, [id number], [facility] [address] Start Date: 07/19/18 Stop Date: 08/18/18 Status: [...] Confirmed Active Labial cyst Confirmed 08/11/18 Active Non-Khmer speaking patient - custodian manager 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 Follows with [facility] Nephrology Social History Social History Type Response Smoking Status Former smoker, quit more than 30 days ago entered on: 04/02/18 Sex Patient Care team information Care Team Personnel Name: Martha Fernandez NP Position: Reference Physician Member Role: Primary Care Nurse Address: Address: [address] [place] [address]- Name: Ruthie Mosqueda Position: [facility] Outreach Member Role: Lifetime Consulting Physician Name: Rosaura Sy MD Position: [facility] Outreach Member Role: Lifetime Consulting Physician Name: Garland Jaeger DO Position: [facility] Renal MD Member Role: Lifetime Consulting Physician Address: Address: [address] [place] [address] [address] [facility] [place] [address]- Name: Clem Bright NP Position: [facility] PCO Associate Professional Member Role: Primary Care Nurse Address: Address: [address] [place] [address] 3rd [place] [address]- [place] Name: Surekha Yun RN Position: S RN Member Role: Primary Care Nurse Name: Wendy Lofton NP Position: [facility] PCO Associate Professional Member Role: PCP Address: Address: [address] [place] [address]- [place] Name: Simran Dupont RN Position: [facility] SN RN Member Role: Primary Care Nurse Care Team Related Persons Name: LORRAINE YADAV Address: home [address] [place] [address] Name: GLEN ORTIZ Address: home [address] [place] [address] Name: JESUS BRAN Address: home [place]ESS [phone]
--- OUTSIDE RECORDS SUMMARY | 2024-01-15 13:14 | XMS_ITS | Continuity of Care Document ---
Author Organization [facility] Address [address] [place] [address]- Care Team Providers Care Automatic Die Cutting Machine Operator Name Role Phone Rolly DUBON, Wendy Primary Care Physician [place] [facility] [place] 05/06/22 - 06/05/22 [facility] [address] [place] [address]- Attending Physician: Carmen Murdock Admitting Physician: Admtr, Carmen Referring Physician: Admtr, Ar8 Allergies, Adverse Reactions, [...] 09/17/2010 4Result Comment: [11/27/2014] Sterile Diluent Lot# [id number]; Exp: 03/28/2017 5Admin Note: VIS GIVEN 11/28/08 [...] 0 Refills, Maintenance, 06/26/20 12:05:00 EDT, Tablet, [facility][id number], Partial fill upon patient request if the prescription is for a schedule II opioid drug., 158, cm, 05/10/20 10:52:00 EDT... Start Date: 06/26/20 Stop Date: 07/26/20 Status: Ordered Claritin 10 mg oral tablet 10 mg, 1, tablet, By Mouth, Daily, # 30 tablet, Refills 2, Tot. Refills 2, Maintenance, 07/09/16 9:35:30, Route to Pharmacy Electronically, [id number], [facility] 68644 Start Date: 07/09/16 Status: Ordered Colace sodium [...] 10:23:02 EDT, Inhaler, Route to Pharmacy Electronically, [id number], [facility] 32569 Start Date: 07/19/18 Stop Date: 07/14/19 Status: [...] 0 Refills, Maintenance, 06/26/20 12:04:00 EDT, Tablet, [facility] #[id number], Partial fill upon patient request if the [...] 10:24:10 EDT, Aerosol, Route to Pharmacy Electronically, [id number], [facility] [address]139 Start Date: 07/19/18 Stop Date: 08/18/18 Status: [...] Confirmed Active Labial cyst Confirmed 08/11/18 Active Non-Belarusian speaking patient - clay shop supervisor required Confirmed Active Menopausal state (approximately age 36 per patient) Confirmed Active Monoclonal gammopathy Confirmed Active Neuropathy Confirmed Active GABRIELE (obstructive sleep apnea) Confirmed Active Osteoarthritis Confirmed Active Limited mobility - uses a walker Confirmed Active Last Pap smear 08/11/18 negative with negative HPV Confirmed Active Severe obesity Confirmed Active Umbilical hernia Confirmed Active 1CKD Stage III. Follows with [facility] Nephrology Social History Social History Type Response Smoking Status Former smoker, quit more than 30 days ago entered on: 04/02/18 Sex Patient Care team information Care Team Personnel Name: Martha Fernandez NP Position: Reference Physician Member Role: Primary Care Nurse Address: Address: [address] [place] [address] - Name: Ruthie Mosqueda Position: [facility] Outreach Member Role: Lifetime Consulting Physician Name: Rosaura Sy MD Position: [facility] Outreach Member Role: Lifetime Consulting Physician Address: Address: [address] [place] [address] - Name: Garland Jaeger DO Position: [facility] Renal MD Member Role: Lifetime Consulting Physician Address: Address: [address] [place], [place] [address] [place], [place] - Name: Shun Ulloa Position: [facility] TA Member Role: Lifetime Consulting Physician Name: Clem Bright NP Position: [facility] PCO Associate Professional Member Role: Primary Care Nurse Address: Address: [address] [place] [address] [address] [place] [address]- [place] Name: Surekha Yun RN Position: S RN Member Role: Primary Care Nurse Name: Wendy Lofton NP Position: [facility] PCO Associate Professional Member Role: PCP Address: Address: [address] [place] [address]- [place] Name: Simran Dupont RN Position: [facility] SN RN Member Role: Primary Care Nurse Care Team Related Persons Name: LORRAINE YADAV Address: home [address] [place] [address] Name: GLEN ORTIZ Address: home [address] [place] [address] Name: JESUS BRAN Address: home [place] [address]ESS [id number]
--- OUTSIDE RECORDS SUMMARY | 2024-01-15 13:14 | XMS_ITS | Continuity of Care Document ---
Author Organization [facility] Address [address] [place] [address]- Care Team Providers Care Insulator Technician Name Role Phone Rolly DUBON, Wendy Primary Care Physician Encounter [facility] [place] Date(s): 03/16/19 - 03/18/19 [facility] [address] [place] [address]- [facility] Encounter Diagnosis Back pain(Final) - 03/17/19 Discharge Disposition: A-D/C Home Attending Physician: Silvia Oleary MD Admitting Physician: Odilon Butts MD Referring Physician: Not on Staff, Referring [...] 09/17/2010 4Result Comment: [11/27/2014] Sterile Diluent Lot# [id number]; Exp: 03/28/2017 5Admin Note: VIS GIVEN 11/28/08 [...] Maintenance, 07/09/16 9:35:30, Route to Pharmacy Electronically, [id number], [facility] [address] Start Date: 07/09/16 Status: Ordered Colace sodium [...] 10:23:02 EDT, Inhaler, Route to Pharmacy Electronically, [id number], [facility] 14278 Start Date: 07/19/18 Stop Date: 07/14/19 Status: [...] EST, Tablet Start Date: 03/17/19 Status: Ordered MiraLax oral powder for reconstitution = 17 Gm, By Mouth, Daily, for 7 days, dissolve in water before taking, # 119 Gm, 0 Refills, Acute 03/25/19 10:36:00 EST, 03/18/19 10:36:00 EST, REC Powder, [facility] #[id number], 17 Gm By MouthDaily,x7 days,Instr:dissolve in water before taking... Start Date: 03/18/19 Stop Date: 03/25/19 Status: Ordered montelukast 10 mg oral tablet [...] 10:24:10 EDT, Aerosol, Route to Pharmacy Electronically, [id number], [facility] [address] Start Date: 07/19/18 Stop Date: 08/18/18 Status: [...] hernia(Confirmed) Active 1CKD Stage III. Follows with [facility] Nephrology Results Radiology Reports * Exam Date Time Procedure Performing Provider Status 03/17/19 8:30 PM Thoracic Spine 2 Views Harlan Kerr (Verified) Notes: (Thoracic Spine 2 Views) Reason For Exam: Pain RESULT: Thoracic Spine 2 Views Thoracic Spine 2 Views Reason: Pain; Hx of Present Illness: reports cervical and lunbar back pain, non tramatic, onset days ago, saw primary and had f u appt next week, 8 10, no n t, no recent falls, takes oxycodone 5mg bid for pain w limited relief COMPARISON: None. FINDINGS: There is a broad levoscoliosis of the thoracic spine. There is moderate to severe disc space narrowing at all levels with flowing paraspinal osteophyte formation. No austyn or retrolisthesis. No thoracic spine fracture is visualized. No destructive or sclerotic bone lesion. IMPRESSION: No thoracic spine fracture. Moderate to severe degenerative disc space narrowing. WSN: [id number] Dictated By: John JAUREGUI, Amari Villalpando Dictated Date/Time: 03/17/19 9:06 pm Reviewed By: Amari Lopez MD Signed By: Amari Lopez MD Signed Date/Time: 03/17/19 9:06 pm Transcribed By: KALYANI Transcribed Date/Time: 03/17/19 9:05 pm * Exam Date Time Procedure Performing Provider Status 03/17/19 8:30 PM Lumbar Spine 2 or 3 Views Carmela Kerr; Auth (Verified) Notes: (Lumbar Spine 2 or 3 Views) Reason For Exam: Pain RESULT: Lumbar Spine 2 or 3 Views Lumbar Spine 2 or 3 Views CLINICAL INDICATION: Reason: Pain; Hx of Present Illness: reports cervical and lunbar back pain, non tramatic, onset days ago, saw primary and had f u appt next week, 8 10, no n t, no recent falls, takes oxycodone 5mg bid for pain w limited relief COMPARISONS: 05/09/2013 TECHNIQUE: AP, lateral, and coned down LS junction views were obtained. FINDINGS: There are 5 nonrib-bearing lumbar type vertebra. There is a mild broad rotatory dextroscoliosis which is unchanged. Lumbar vertebral body heights are maintained. Moderate-severe disc space narrowing at L5-S1 with mild disc space narrowing at remaining levels. No lumbar spine fracture.. IMPRESSION: No lumbar spine fracture. Rotatory scoliosis and degenerative disc space narrowing in the lower lumbar spine. No significant interval change. WSN: [id number] Dictated By: Amari Lopez MD Dictated Date/Time: 03/17/19 9:04 pm Reviewed By: Amari Lopez MD Signed By: Amari Lopez MD Signed Date/Time: 03/17/19 9:04 pm Transcribed By: KALYANI Transcribed Date/Time: 03/17/19 8:58 pm Vital Signs Most recent to oldest [Reference Range]: 1 2 3 Height 158 cm (03/18/19 3:02 AM) 158 cm (03/17/19 4:30 PM) Weight 160 kg (03/17/19 4:30 PM) Oxygen Saturation [94-100 %] 98 % (03/18/19 7:00 AM) 97 % (03/18/19 3:02 AM) 100 % (03/17/19 4:29 PM) Pulse Rate [55-90 bpm] 71 bpm (03/18/19 7:00 AM) 96 bpm *H* (03/18/19 3:02 AM) 105 bpm *H* (03/17/19 4:29 PM) Body Mass Index [18.5-24.99] 64.09 *>HHI* (03/17/19 4:30 PM) Blood Pressure [90-138/55-84 mm Hg] 137/62mm Hg (03/18/19 8:36 AM) 137/62mm Hg (03/18/19 7:00 AM) 162/75mm Hg *H* (03/18/19 3:02 AM) Respiratory Rate [16-30 br/min] 16 br/min (03/18/19 7:23 AM) 16 br/min (03/18/19 7:04 AM) 16 br/min (03/18/19 7:04 AM) Temperature [96.8-100.4 DegF] 97.6 DegF (03/18/19 7:00 AM) 98.2 DegF (03/18/19 3:02 AM) 97.7 DegF (03/17/19 4:29 PM) Mode of Delivery (Oxygen) Room air (03/18/19 7:00 AM) Room air (03/18/19 3:02 AM) Room air (03/17/19 4:29 PM) Blood pressure sites Arm, right (03/18/19 7:00 AM) Arm, right (03/18/19 3:02 AM) Arm, left (03/17/19 4:29 PM) Temperature Route Oral (03/18/19 7:00 AM) Oral (03/18/19 3:02 AM) Oral (03/17/19 4:29 PM) Dry Weight 160 kg (03/17/19 4:30 PM) Social History Social History Type Response Smoking Status Former smoker, quit more than 30 days ago entered on: 04/02/18 Sex
--- OUTSIDE RECORDS SUMMARY | 2024-01-15 13:14 | XMS_ITS | Continuity of Care Document ---
Author Organization [facility] Address [address], [address]t [place] [address]- Care Team Providers Care Sales Assoc Name Role Phone Wendy Lofton NP Primary Care Physician [phone] Encounter [facility] [place] Date(s): 02/13/22 - 03/15/22 [facility] [address], [address] [place], [place] [address] Attending Physician: AdmCarmen morgan Admitting Physician: AdmtrCarmen [...] 09/17/2010 4Result Comment: [11/27/2014] Sterile Diluent Lot# [id number]; Exp: 03/28/2017 5Admin Note: VIS GIVEN 11/28/08 [...] 0 Refills, Maintenance, 06/26/20 12:05:00 EDT, Tablet, [facility][id number], Partial fill upon patient request if the prescription is for a schedule II opioid drug., 158, cm, 05/10/20 10:52:00 EDT... Start Date: 06/26/20 Stop Date: 07/26/20 Status: Ordered Claritin 10 mg oral tablet 10 mg, 1, tablet, By Mouth, Daily, # 30 tablet, Refills 2, Tot. Refills 2, Maintenance, 07/09/16 9:35:30, Route to Pharmacy Electronically, [id number], [facility] [address] Start Date: 07/09/16 Status: Ordered Colace sodium [...] 10:23:02 EDT, Inhaler, Route to Pharmacy Electronically, [id number], [facility] [address] Start Date: 07/19/18 Stop Date: 07/14/19 Status: [...] 0 Refills, Maintenance, 06/26/20 12:04:00 EDT, Tablet, [facility] #[id number], Partial fill upon patient request if the [...] 10:24:10 EDT, Aerosol, Route to Pharmacy Electronically, [id number], [facility] [address] Start Date: 07/19/18 Stop Date: 08/18/18 Status: [...] Confirmed Active Labial cyst Confirmed 08/11/18 Active Non-Bahamian speaking patient - pattern hand required Confirmed Active Menopausal state (approximately age 36 per patient) Confirmed Active Monoclonal gammopathy Confirmed Active Neuropathy Confirmed Active GABRIELE (obstructive sleep apnea) Confirmed Active Osteoarthritis Confirmed Active Limited mobility - uses a walker Confirmed Active Last Pap smear 08/11/18 negative with negative HPV Confirmed Active Severe obesity Confirmed Active Umbilical hernia Confirmed Active 1CKD Stage III. Follows with [facility] Nephrology Social History Social History Type Response Smoking Status Former smoker, quit more than 30 days ago entered on: 04/02/18 Sex Patient Care team information Care Team Personnel Name: Martha Fernandez NP Position: Reference Physician Member Role: Primary Care Nurse Address: Address: [address] [place] [address]- [place] Name: Ruthie Mosqueda Position: [facility] Outreach Member Role: Lifetime Consulting Physician Name: Rosaura Sy MD Position: [facility] Outreach Member Role: Lifetime Consulting Physician Address: Address: [address] [place] [address]- [place] Name: Garland Jaeger DO Position: [facility] Renal MD Member Role: Lifetime Consulting Physician Address: Address: [address] [place] [address] [address] [facility] [place] [address]- [place] Name: Clem Bright NP Position: [facility] PCO Associate Professional Member Role: Primary Care Nurse Address: Address: [address] [place] [address] 3rd [place] [address]- [place] Name: Surekha Yun RN Position: [facility] RN Member Role: Primary Care Nurse Name: Wendy Lofton NP Position: [facility] PCO Associate Professional Member Role: PCP Address: Address: [address] [place] [address]- [place] Name: Simran Dupont RN Position: [facility] SN RN Member Role: Primary Care Nurse Care Team Related Persons Name: LORRAINE YADAV Address: home [address] [place] [address] Name: GLEN ORTIZ Address: home [address] [place] [address] Name: JESUS BRAN Address: home [place]DRESS [id number]
--- OUTSIDE RECORDS SUMMARY | 2024-01-15 13:15 | XMS_ITS | Continuity of Care Document ---
Author Organization [facility] Address [address], 4t [place] [address]- Care Team Providers Care Divorce Mediator Name Role Phone Wendy Lofton NP Primary Care Physician [phone] [place] [facility] [place]22 [facility] [address], 4th [address] [place], [place] [address] Allergies, Adverse Reactions, Alerts Substance Reaction Severity [...] 09/17/2010 4Result Comment: [11/27/2014] Sterile Diluent Lot# [id number]; Exp: 03/28/2017 5Admin Note: VIS GIVEN 11/28/08 [...] 0 Refills, Maintenance, 06/26/20 12:05:00 EDT, Tablet, [facility] #[id number], Partial fill upon patient request if the prescription is for a schedule II opioid drug., 158, cm, 05/10/20 10:52:00 EDT... Start Date: 06/26/20 Stop Date: 07/26/20 Status: Ordered Claritin 10 mg oral tablet 10 mg, 1, tablet, By Mouth, Daily, # 30 tablet, Refills 2, Tot. Refills 2, Maintenance, 07/09/16 9:35:30, Route to Pharmacy Electronically, [id number], [facility] [address] Start Date: 07/09/16 Status: Ordered Colace sodium [...] 10:23:02 EDT, Inhaler, Route to Pharmacy Electronically, [id number], [facility] [address] Start Date: 07/19/18 Stop Date: 07/14/19 Status: [...] 0 Refills, Maintenance, 06/26/20 12:04:00 EDT, Tablet, [facility] #[id number], Partial fill upon patient request if the prescription is for a schedule II opioid drug., 158, cm,... Start Date: 06/26/20 Status: Ordered omeprazole 20 mg oral delayed release tablet 1 tablet = 20 mg, By Mouth, Daily, # 30 tablet, 0 Refills, Maintenance, 01/23/20 16:03:00 EST, EC Tablet Start Date: 03/17/19 [...] 10:24:10 EDT, Aerosol, Route to Pharmacy Electronically, [id number], [facility] [address] Start Date: 07/19/18 Stop Date: 08/18/18 Status: [...] Confirmed Active Labial cyst Confirmed 08/11/18 Active Non-Nepali speaking patient - women's studies lecturer required Confirmed Active Menopausal state (approximately age 36 per patient) Confirmed Active Monoclonal gammopathy Confirmed Active Neuropathy Confirmed Active GABRIELE (obstructive sleep apnea) Confirmed Active Osteoarthritis Confirmed Active Limited mobility - uses a walker Confirmed Active Last Pap smear 08/11/18 negative with negative HPV Confirmed Active Severe obesity Confirmed Active Umbilical hernia Confirmed Active 1CKD Stage III. Follows with [facility] Nephrology Social History Social History Type Response Smoking Status Former smoker, quit more than 30 days ago entered on: 04/02/18 Sex Patient Care team information Care Team Personnel Name: Martha Fernandez NP Position: Reference Physician Member Role: Primary Care Nurse Address: Address: [address] [place] [address] [address] [employer] [place], [place] - Name: Ruthie Mosqueda Position: [facility] Outreach Member Role: Lifetime Consulting Physician Name: Rosaura Sy MD Position: [facility] Outreach Member Role: Lifetime Consulting Physician Address: Address: [address] [place] [address] - Name: Garland Jaeger DO Position: [facility] Renal MD Member Role: Lifetime Consulting Physician Address: Address: [address] [facility] [place], [place] - Name: Clem Bright NP Position: [facility] PCO Associate Professional Member Role: Primary Care Nurse Address: Address: [address] [place] [address] 3rd floor [place], [place] - [place] Name: Surekha Yun RN Position: [facility] RN Member Role: Primary Care Nurse Name: Wendy Lofton NP Position: [facility] PCO Associate Professional Member Role: PCP Address: Address: [address] [place] [address] [address] [place], [place] - [place] Name: Simran Dupont RN Position: [facility] SN RN Member Role: Primary Care Nurse Care Team Related Persons Name: LORRAINE YADAV Address: home [address] [place] [address] Name: GLEN ORTIZ Address: home [address] [place] [address] Name: JESUS BRAN Address: home [place]ESS [id number]
--- OUTSIDE RECORDS SUMMARY | 2024-01-15 13:15 | XMS_ITS | Continuity of Care Document ---
Author Organization [facility] Address [address] [place] [address]- Care Team Providers Care Information Support Project Manager Name Role Phone Not on Staff, PCP Primary Care Physician Unavail able [place] [facility] [place](s): 11/04/23 - 12/10/[address] [address]- Attending Physician: Kranthi Rinaldi MD Admitting Physician: Kranthi Rinaldi MD Referring Physician: Kranthi Rinaldi MD Allergies, Adverse Reactions, Alerts Substance Reaction [...] 09/17/2010 4Result Comment: [11/27/2014] Sterile Diluent Lot# [id number]; Exp: 03/28/2017 5Admin Note: VIS GIVEN 11/28/08 [...] 0 Refills, Maintenance, 06/26/20 12:05:00 EDT, Tablet, [facility][id number], Partial fill upon patient request if the prescription is for a schedule II opioid drug., 158, cm, 05/10/20 10:52:00 EDT... Start Date: 06/26/20 Stop Date: 07/26/20 Status: Ordered Claritin 10 mg oral tablet 10 mg, 1, tablet, By Mouth, Daily, # 30 tablet, Refills 2, Tot. Refills 2, Maintenance, 07/09/16 9:35:30, Route to Pharmacy Electronically, [id number], [facility] [address] Start Date: 07/09/16 Status: Ordered Colace sodium [...] Refills, Maintenance, 10/06/23 14:05:00 EDT, [facility], Partial fill upon patient request if the prescription is for a schedule II opioid drug., 158, c... Start Date: 10/06/23 Status: Ordered fluticasone-salmeterol 250 mcg-50 mcg inhalation powder 1, puffs, Inhalation, 2 times a day, # 60 each, Refills 11, Tot. Refills 11, Maintenance, 07/19/18 10:23:02 EDT, Inhaler, Route to Pharmacy Electronically, [id number], [facility] [address] Start Date: 07/19/18 Stop Date: 07/14/19 Status: Ordered furosemide 80 mg oral tablet 80 mg, By Mouth, Daily, # 30 tablet, Refills 0, Tot. Refills 0, Maintenance, 08/12/17 12:47:28 EDT,Print Requisition Start Date: 08/12/17 Stop Date: 09/11/17 Status: Ordered Golytely - oral powder for reconstitution See Instructions, Follow instructions from GI, # 4,000 mL, 0 Refills, Maintenance, 10/06/23 14:06:00 EDT, [facility], Partial fill upon patient request if the prescription is for a schedule II opioid drug., Follow instructions from GI, 1... Start Date: 10/06/23 Status: Ordered isosorbide mononitrate 30 mg oral tablet, extended release 30 mg, 1, tablet, By Mouth, Daily in AM, # 90 tablet, Refills 0, Tot. Refills 0, Maintenance, 08/07/20 16:42:00 EDT, Route to Pharmacy Electronically, [id number], Partial fill upon patient request [...] 0 Refills, Maintenance, 06/26/20 12:04:00 EDT, Tablet, [facility] #[id number], Partial fill upon patient request if the [...] 10:24:10 EDT, Aerosol, Route to Pharmacy Electronically, [id number], [facility] [address] Start Date: 07/19/18 Stop Date: 08/18/18 Status: Ordered Readi-Cat 2 Smoothie Mingo 2% oral suspension See Instructions, as instructed [...] Confirmed Active Labial cyst Confirmed 08/11/18 Active Non-Venezuelan speaking patient - chief service dispatcher 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 Follows with [facility] Nephrology Social History Social History Type Response Smoking Status Former smoker, quit more than 30 days ago entered on: 04/02/18 Sex Patient Care team information Care Team Personnel Name: Martha Fernandez NP Position: Reference Physician Member Role: Primary Care Nurse Address: Address: [address] [place] [address]- Name: Ruthie Mosqueda Position: [facility] Outreach Member Role: Lifetime Consulting Physician Name: Rosaura Sy MD Position: [facility] Outreach Member Role: Lifetime Consulting Physician Name: Garland Jaeger DO Position: [facility] Renal MD Member Role: Lifetime Consulting Physician Address: Address: [address] [place] [address] [address] [facility] [place] [address]- Name: Not on Staff, PCP Position: [facility] Physician (General Medicine) Member Role: PCP Name: Clem Bright NP Position: [facility] PCO Associate Professional Member Role: Primary Care Nurse Address: Address: [address] [place] [address] 3rd floor [place], [place] - Name: Surekha Yun RN Position: [facility] RN Member Role: Primary Care Nurse Name: Simran Dupont RN Position: [facility] SN RN Member Role: Primary Care Nurse Care Team Related Persons Name: LORRAINE YADAV Address: home [address] [place] [address] Name: GLEN ORTIZ Address: home [address] [place] [address] Name: JESUS BRAN Address: home [place]ESS [id number]
--- OUTSIDE RECORDS SUMMARY | 2024-01-15 13:15 | XMS_ITS | Continuity of Care Document ---
Author Organization [facility] Address [address] [place] [address]- Care Team Providers Care Assistant Winemaker Name Role Phone Rolly DUBON, Wendy Primary Care Physician [phone] Encounter [facility] [place] Date(s): 12/21/19 - 03/03/20 [facility] [address], [place] [address] Attending Physician: Vu Haas MD Admitting Physician: Samina JAUREGUI, Vu Referring Physician: Wendy Lofton NP Allergies, Adverse [...] 09/17/2010 4Result Comment: [11/27/2014] Sterile Diluent Lot# [id number]; Exp: 03/28/2017 5Admin Note: VIS GIVEN 11/28/08 [...] Maintenance, 07/09/16 9:35:30, Route to Pharmacy Electronically, [id number], [facility] [address] Start Date: 07/09/16 Status: Ordered Colace sodium [...] 10:23:02 EDT, Inhaler, Route to Pharmacy Electronically, [id number], [facility] [address] Start Date: 07/19/18 Stop Date: 07/14/19 Status: [...] 10:24:10 EDT, Aerosol, Route to Pharmacy Electronically, [id number], [facility] [address] Start Date: 07/19/18 Stop Date: 08/18/18 Status: [...] hernia(Confirmed) Active 1CKD Stage III. Follows with [facility] Nephrology Social History Social History Type Response Smoking Status Former smoker, quit more than 30 days ago entered on: 04/02/18 Sex
--- OUTSIDE RECORDS SUMMARY | 2024-01-15 13:15 | XMS_ITS | Continuity of Care Document ---
Author Organization [facility] Address [address] [place] [address]- Care Team Providers Care Solar Installation Crew Supervisor Name Role Phone Rolly DUBON, Wendy Primary Care Physician Encounter [facility] [place] Date(s): 02/10/20 - 06/09/20 [facility] [address], [place] [address] Attending Physician: Vu Haas MD Admitting Physician: Vu Haas MD Referring Physician: Wendy Lofton NP Allergies, [...] 09/17/2010 4Result Comment: [11/27/2014] Sterile Diluent Lot# [id number]; Exp: 03/28/2017 5Admin Note: VIS GIVEN 11/28/08 [...] Maintenance, 07/09/16 9:35:30, Route to Pharmacy Electronically, [id number], [facility] [address] Start Date: 07/09/16 Status: Ordered Colace sodium [...] 10:23:02 EDT, Inhaler, Route to Pharmacy Electronically, [id number], [facility] [address] Start Date: 07/19/18 Stop Date: 07/14/19 Status: [...] 10:24:10 EDT, Aerosol, Route to Pharmacy Electronically, [id number], [facility] [address] Start Date: 07/19/18 Stop Date: 08/18/18 Status: Ordered Zofran 4 mg oral tablet 1 tablet = 4 mg, By Mouth, Every 8 hours, PRN as needed for nausea/vomiting, 0 Refills, Maintenance, 06/01/17 10:43:29 EDT, Tablet Start Date: 06/01/17 Status: Ordered Problem List Condition Effective Dates Status Health Status Inform ant Anemia(Confirmed) Active Asthma(Confirmed) Active Breast cyst, solitary(Confirmed) 5/14/12 Active Chronic low back pain(Confirmed) Active CKD stage 3(Confirmed) 1 Active Diabetes mellitus(Confirmed) Active Diabetic neuropathy(Confirmed) Active End stage renal disease(Confirmed) Active HTN - Hypertension(Confirmed) Active Labial cyst(Confirmed) 08/11/18 Active Monoclonal gammopathy(Confirmed) Active Neuropathy(Confirmed) Active GABRIELE (obstructive sleep apnea)(Confirmed) Active Osteoarthritis(Confirmed) Active Umbilical hernia(Confirmed) Active 1CKD Stage III. Follows with [facility] Nephrology Social History Social History Type Response Smoking Status Former smoker, quit more than 30 days ago entered on: 04/02/18 Sex
--- OUTSIDE RECORDS SUMMARY | 2024-01-15 13:15 | XMS_ITS | Continuity of Care Document ---
Author Organization [facility] ter Address [address] [place] [address]- Care Team Providers Care Real Estate Representative Name Role Phone Rolly DUBON, Wendy Primary Care Physician [place] [facility] [place] - 02/22/[address] [address] Attending Physician: Lina DUBON, Abbey Hutchison Admitting Physician: Lina DUBON, Abbey Hutchison Referring Physician: Lina DUBON, Abbey Hutchison Allergies, Adverse Reactions, Alerts Substance Reaction Severity [...] 09/17/2010 4Result Comment: [11/27/2014] Sterile Diluent Lot# [id number]; Exp: 03/28/2017 5Admin Note: VIS GIVEN 11/28/08 [...] 0 Refills, Maintenance, 06/26/20 12:05:00 EDT, Tablet, [facility]75015, Partial fill upon patient request if the prescription is for a schedule II opioid drug., 158, cm, 05/10/20 10:52:00 EDT... Start Date: 06/26/20 Stop Date: 07/26/20 Status: Ordered Claritin 10 mg oral tablet 10 mg, 1, tablet, By Mouth, Daily, # 30 tablet, Refills 2, Tot. Refills 2, Maintenance, 07/09/16 9:35:30, Route to Pharmacy Electronically, [id number], [facility] [address] Start Date: 07/09/16 Status: Ordered Colace sodium [...] 10:23:02 EDT, Inhaler, Route to Pharmacy Electronically, [id number], [facility] [address] Start Date: 07/19/18 Stop Date: 07/14/19 Status: [...] 0 Refills, Maintenance, 06/26/20 12:04:00 EDT, Tablet, [facility] #25241, Partial fill upon patient request if the [...] 10:24:10 EDT, Aerosol, Route to Pharmacy Electronically, [id number], [facility] [address] Start Date: 07/19/18 Stop Date: 08/18/18 Status: [...] Confirmed Active Labial cyst Confirmed 08/11/18 Active Non-Slovenian speaking patient - medical interpreter required Confirmed Active Menopausal state (approximately age 36 per patient) Confirmed Active Monoclonal gammopathy Confirmed Active Neuropathy Confirmed Active GABRIELE (obstructive sleep apnea) Confirmed Active Osteoarthritis Confirmed Active Limited mobility - uses a walker Confirmed Active Last Pap smear 08/11/18 negative with negative HPV Confirmed Active Severe obesity Confirmed Active Umbilical hernia Confirmed Active 1CKD Stage III. Follows with [facility] Nephrology Social History Social History Type Response Smoking Status Former smoker, quit more than 30 days ago entered on: 04/02/18 Sex Patient Care team information Care Team Personnel Name: Martha Fernandez NP Position: Reference Physician Member Role: Primary Care Nurse Address: Address: [address] [place] [address] [address] [place] [address]- [place] Name: Ruthie Mosqueda Position: [facility] Outreach Member Role: Lifetime Consulting Physician Name: Rosaura Sy MD Position: [facility] Outreach Member Role: Lifetime Consulting Physician Address: Address: [address] [place] [address]- Name: Garland Jaeger DO Position: [facility] Renal MD Member Role: Lifetime Consulting Physician Address: Address: [address] [facility] [place] [address]- [place] Name: Clem Bright NP Position: [facility] PCO Associate Professional Member Role: Primary Care Nurse Address: Address: [address] [facility] [address]rd [place] [address]- [place] Name: Surekha Yun RN Position: S RN Member Role: Primary Care Nurse Name: Wendy Lofton NP Position: [facility] PCO Associate Professional Member Role: PCP Address: Address: [address] [place] [address] [address] [place] [address]- [place] Name: Simran Dupont RN Position: [facility] SN RN Member Role: Primary Care Nurse Care Team Related Persons Name: LORRAINE YADAV Address: home [address] [place] [address] Name: GLEN ORTIZ Address: [address] [place] [address] Name: JESUS BRAN Address: home [place] [address]ESS [id number]
--- OUTSIDE RECORDS SUMMARY | 2024-01-15 13:15 | XMS_ITS | Continuity of Care Document ---
Author Organization [facility] Address [address] [place] [address]- Care Team Providers Care Global Commodity Manager Name Role Phone Wendy Lofton NP Primary Care Physician Encounter [facility] Date(s): 10/28/19 - 11/27/19 [facility] [address] [place] [address]- [facility] Allergies, Adverse Reactions, Alerts Substance Reaction Severity [...] 09/17/2010 4Result Comment: [11/27/2014] Sterile Diluent Lot# [id number]; Exp: 03/28/2017 5Admin Note: VIS GIVEN 11/28/08 [...] Maintenance, 07/09/16 9:35:30, Route to Pharmacy Electronically, [id number], [facility] [address] Start Date: 07/09/16 Status: Ordered Colace sodium [...] 10:23:02 EDT, Inhaler, Route to Pharmacy Electronically, [id number], [facility] [address] Start Date: 07/19/18 Stop Date: 07/14/19 Status: [...] 10:24:10 EDT, Aerosol, Route to Pharmacy Electronically, [id number], [facility] [address] Start Date: 07/19/18 Stop Date: 08/18/18 Status: [...] hernia(Confirmed) Active 1CKD Stage III. Follows with [facility] Nephrology Social History Social History Type Response Smoking Status Former smoker, quit more than 30 days ago entered on: 04/02/18 Sex
--- OUTSIDE RECORDS SUMMARY | 2024-01-15 13:15 | XMS_ITS | Continuity of Care Document ---
Author Organization [facility] ter Address [address] [place] [address]- Care Team Providers Care Bag Shaker Name Role Phone Rolly DUBON, Wendy Primary Care Physician Encounter [facility] Date(s): 03/11/19 - 03/18/[address] [address]- [facility] Attending Physician: Nubia JAUREGUI, Kevin Bay Allergies, Adverse Reactions, Alerts Substance Reaction Severity [...] 09/17/2010 4Result Comment: [11/27/2014] Sterile Diluent Lot# [id number]; Exp: 03/28/2017 5Admin Note: VIS GIVEN 11/28/08 [...] Maintenance, 07/09/16 9:35:30, Route to Pharmacy Electronically, [id number], [facility] [address] Start Date: 07/09/16 Status: Ordered Colace sodium [...] 10:23:02 EDT, Inhaler, Route to Pharmacy Electronically, [id number], [facility] [address] Start Date: 07/19/18 Stop Date: 07/14/19 Status: [...] 10:36:00 EST, 03/18/19 10:36:00 EST, REC Powder, [facility] #[id number], 17 Gm By MouthDaily,x7 days,Instr:dissolve in water [...] 10:24:10 EDT, Aerosol, Route to Pharmacy Electronically, [id number], [facility] [address] Start Date: 07/19/18 Stop Date: 08/18/18 Status: [...] Active 1CKD Stage III. Follows with [facility] Nephrology Social History Social History Type Response Smoking Status Former smoker, quit more than 30 days ago entered on: 04/02/18 Sex
--- OUTSIDE RECORDS SUMMARY | 2024-01-15 13:15 | XMS_ITS | Continuity of Care Document ---
Author Organization [facility] Address [address] [place] [address]- Care Team Providers Care Med Asst Name Role Phone Wendy Lofton NP Primary Care Physician [phone] Encounter [facility] [place] Date(s): 06/18/21 - 07/18/21 [facility] [address] [place] [address]- Allergies, Adverse Reactions, Alerts Substance Reaction Severity [...] 09/17/2010 4Result Comment: [11/27/2014] Sterile Diluent Lot# [id number]; Exp: 03/28/2017 5Admin Note: VIS GIVEN 11/28/08 [...] 0 Refills, Maintenance, 06/26/20 12:05:00 EDT, Tablet, [facility][id number], Partial fill upon patient request if the prescription is for a schedule II opioid drug., 158, cm, 05/10/20 10:52:00 EDT... Start Date: 06/26/20 Stop Date: 07/26/20 Status: Ordered Claritin 10 mg oral tablet 10 mg, 1, tablet, By Mouth, Daily, # 30 tablet, Refills 2, Tot. Refills 2, Maintenance, 07/09/16 9:35:30, Route to Pharmacy Electronically, [id number], [facility] [address] Start Date: 07/09/16 Status: Ordered Colace sodium [...] 10:23:02 EDT, Inhaler, Route to Pharmacy Electronically, [id number], [facility] [address] Start Date: 5/27/19 Stop Date: 07/14/19 Status: Ordered furosemide 80 [...] 0 Refills, Maintenance, 06/26/20 12:04:00 EDT, Tablet, [facility]75857, Partial fill upon patient request if the [...] 10:24:10 EDT, Aerosol, Route to Pharmacy Electronically, [id number], [facility] [address] Start Date: 07/19/18 Stop Date: 08/18/18 Status: [...] hernia(Confirmed) Active 1CKD Stage III. Follows with [facility] Nephrology Social History Social History Type Response Smoking Status Former smoker, quit more than 30 days ago entered on: 04/02/18 Sex
--- OUTSIDE RECORDS SUMMARY | 2024-01-15 13:15 | XMS_ITS | Continuity of Care Document ---
Author Organization [facility] Address [address] [place] [address]- Care Team Providers Care Neurologist Name Role Phone Rolly DUBON, Wendy Primary Care Physician Encounter [facility] Date(s): 07/08/22 - 08/07/22 [facility] [address] [place] [address]- Attending Physician: Carmen Murdock Admitting Physician: Carmen Murdock Referring Physician: Carmen Murdock Allergies, Adverse Reactions, Alerts Substance Reaction Severity [...] 09/17/2010 4Result Comment: [11/27/2014] Sterile Diluent Lot# [id number]; Exp: 03/28/2017 5Admin Note: VIS GIVEN 11/28/08 [...] 0 Refills, Maintenance, 06/26/20 12:05:00 EDT, Tablet, [facility]18527, Partial fill upon patient request if the prescription is for a schedule II opioid drug., 158, cm, 05/10/20 10:52:00 EDT... Start Date: 06/26/20 Stop Date: 07/26/20 Status: Ordered Claritin 10 mg oral tablet 10 mg, 1, tablet, By Mouth, Daily, # 30 tablet, Refills 2, Tot. Refills 2, Maintenance, 07/09/16 9:35:30, Route to Pharmacy Electronically, [id number], [facility] [address] Start Date: 07/09/16 Status: Ordered Colace sodium [...] 10:23:02 EDT, Inhaler, Route to Pharmacy Electronically, [id number], [facility] [address] Start Date: 07/19/18 Stop Date: 07/14/19 Status: [...] 0 Refills, Maintenance, 06/26/20 12:04:00 EDT, Tablet, [facility] #15108, Partial fill upon patient request if the [...] 10:24:10 EDT, Aerosol, Route to Pharmacy Electronically, [id number], [facility] [address] Start Date: 07/19/18 Stop Date: 08/18/18 Status: [...] Confirmed Active Labial cyst Confirmed 08/11/18 Active Non-Icelandic speaking patient - 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 Follows with [facility] Social History Social History Type Response Smoking Status Former smoker, quit more than 30 days ago entered on: 04/02/18 Sex Patient Care team information Care Team Personnel Name: Martha Fernandez NP Position: Reference Physician Member Role: Primary Care Nurse Address: Address: [address] [place] [address]- [place] Name: Ruthie Mosqueda Position: [facility] Outreach Member Role: Lifetime Consulting Physician Name: Rosaura Sy MD Position: [facility] Outreach Member Role: Lifetime Consulting Physician Address: Address: [address] [place] [address]- Name: Garland Jaeger DO Position: [facility] Renal MD Member Role: Lifetime Consulting Physician Address: Address: [address] [place], [place] [address] [place] [address]- [place] Name: Shun Ulloa Position: [facility] TA Member Role: Lifetime Consulting Physician Name: Clem Bright NP Position: [facility] PCO Associate Professional Member Role: Primary Care Nurse Address: Address: [address] [place] [address] [address]rd [place] [address]- [place] Name: Surekha Yun RN Position: [facility] RN Member Role: Primary Care Nurse Name: Wendy Lofton NP Position: [facility] PCO Associate Professional Member Role: PCP Address: Address: [address] [place] [address]- [place] Name: Simran Dupont RN Position: [facility] SN RN Member Role: Primary Care Nurse Care Team Related Persons Name: LORRAINE YADAV Address: home [address] [place] [address] Name: GLEN ORTIZ Address: [address] [place] [address] Name: JESUS BRAN Address: [place]ESS [address]
--- OUTSIDE RECORDS SUMMARY | 2024-01-15 13:15 | XMS_ITS | Continuity of Care Document ---
Author Organization [facility] ter Address [address] [place] [address]- Care Team Providers Care Stiff Straw Hat Washer Name Role Phone Rolly DUBON, Wendy Primary Care Physician [phone] Encounter [facility] Date(s): 07/13/18 - 02/12/[address] [address]- [facility] Attending Physician: Wendy Lofton NP Admitting Physician: Wendy Lofton NP Referring Physician: Wendy Lofton NP Allergies, Adverse [...] 09/17/2010 4Result Comment: [11/27/2014] Sterile Diluent Lot# [id number]; Exp: 03/28/2017 5Admin Note: VIS GIVEN 11/28/08 [...] Daily,Instr:D/C simvastatin Start Date: 09/01/14 Status: Ordered calcitriol 0.5 mcg oral capsule TK 1 C PO 3 TIMES A WEEK Start Date: 04/30/17 Status: Ordered Claritin 10 mg oral tablet 10 mg, 1, tablet, By Mouth, Daily, # 30 tablet, Refills 2, Tot. Refills 2, Maintenance, 07/09/16 9:35:30, Route to Pharmacy Electronically, [id number], [facility] [address] Start Date: 07/09/16 Status: Ordered Colace sodium 100 mg oral capsule 1 capsule = 100 mg, By Mouth, 2 times a day, PRN for constipation, # 20 capsule, 0 Refills, Maintenance, 10/27/14 10:53:09, Capsule Start Date: 10/27/14 Status: Ordered ergocalciferol [address]149 iu oral capsule TK 1 C PO ONCE Q WEEK Start Date: 04/30/17 Status: Ordered fluticasone-salmeterol 250 mcg-50 mcg inhalation powder 1, puffs, Inhalation, 2 times a day, # 60 each, Refills 11, Tot. Refills 11, Maintenance, 07/19/18 10:23:02 EDT, Inhaler, Route to Pharmacy Electronically, [id number], [facility] [address] Start Date: 07/19/18 Stop Date: 07/14/19 Status: Ordered furosemide 80 mg oral tablet 80 mg, By Mouth, 2 times a day, # 60 tablet, Refills 0, Tot. Refills 0, Maintenance, 08/12/17 12:47:28 EDT, [facility] Start Date: 08/12/17 Stop Date: 09/11/17 Status: Ordered metFORMIN 500 mg oral tablet 1 tablet = 500 mg, By Mouth, Daily, # 180 tablet, 0 Refills, Maintenance, 08/09/17 12:46:28 EDT, Tablet Start Date: 08/09/17 Status: Ordered montelukast 10 mg oral tablet = 10 mg, By Mouth, Daily before dinner, # 30 each, 11 Refills, Maintenance, 09/01/14 9:41:36, Tablet, 10 mg By Mouth Daily before dinner,x30 days Start Date: 09/01/14 Stop Date: 08/27/15 Status: Ordered oxyCODONE 5 mg oral capsule [...] 10:24:10 EDT, Aerosol, Route to Pharmacy Electronically, [id number], [facility] [address] Start Date: 07/19/18 Stop Date: 08/18/18 Status: [...] hernia(Confirmed) Active 1CKD Stage III. Follows with [facility] Social History Social History Type Response Smoking Status Former smoker, quit more than 30 days ago entered on: 04/02/18 Sex
--- OUTSIDE RECORDS SUMMARY | 2024-01-15 13:15 | XMS_ITS | Continuity of Care Document ---
Author Organization [facility] Address [address] [place] [address]- Care Team Providers Care Sales Designer Name Role Phone Wendy Lofton NP Primary Care Physician [phone] Encounter [facility] Date(s): 11/21/19 - 12/21/[address] [address]- [facility] Allergies, Adverse Reactions, Alerts Substance Reaction [...] 09/17/2010 4Result Comment: [11/27/2014] Sterile Diluent Lot# [id number]; Exp: 03/28/2017 5Admin Note: VIS GIVEN 11/28/08 [...] Maintenance, 07/09/16 9:35:30, Route to Pharmacy Electronically, [id number], [facility] [address] Start Date: 07/09/16 Status: Ordered Colace sodium [...] 10:23:02 EDT, Inhaler, Route to Pharmacy Electronically, [id number], [facility] [address] Start Date: 07/19/18 Stop Date: 07/14/19 Status: [...] 10:24:10 EDT, Aerosol, Route to Pharmacy Electronically, [id number], [facility] [address] Start Date: 07/19/18 Stop Date: 08/18/18 Status: [...]
--- OUTSIDE RECORDS SUMMARY | 2024-01-15 13:15 | XMS_ITS | Continuity of Care Document ---
Author Organization [facility] Address [address] [place] [address]- Care Team Providers Care Forge Helper Name Role Phone Long Vickie DUBON Primary Care Physician [phone] Encounter [facility] [place] Date(s): 10/06/23 - 11/05/23 [facility] [address] [place] [address]- Attending Physician: Carmen Murdock Admitting Physician: AdmtrCarmen [...] 09/17/2010 4Result Comment: [11/27/2014] Sterile Diluent Lot# [id number]; Exp: 03/28/2017 5Admin Note: VIS GIVEN 11/28/08 [...] 0 Refills, Maintenance, 06/26/20 12:05:00 EDT, Tablet, [facility] #[id number], Partial fill upon patient request if the prescription is for a schedule II opioid drug., 158, cm, 05/10/20 10:52:00 EDT... Start Date: 06/26/20 Stop Date: 07/26/20 Status: Ordered Claritin 10 mg oral tablet 10 mg, 1, tablet, By Mouth, Daily, # 30 tablet, Refills 2, Tot. Refills 2, Maintenance, 07/09/16 9:35:30, Route to Pharmacy Electronically, [id number], [facility] [address]326 Start Date: 07/09/16 Status: Ordered Colace sodium [...] 10:23:02 EDT, Inhaler, Route to Pharmacy Electronically, [id number], [facility] [address] Start Date: 07/19/18 Stop Date: 07/14/19 Status: Ordered furosemide 80 mg oral tablet 80 mg, By Mouth, Daily, # 30 tablet, Refills 0, Tot. Refills 0, Maintenance, 08/12/17 12:47:28 EDT,Print Requisition Start Date: 08/12/17 Stop Date: 09/11/17 Status: Ordered Golytely - oral powder for reconstitution See Instructions, Follow instructions from GI, # 4,000 mL, 0 Refills, Maintenance, 10/06/23 14:06:00 EDT, [facility] #[facility], Partial [...] 0 Refills, Maintenance, 06/26/20 12:04:00 EDT, Tablet, [facility] #[id number], Partial fill upon patient request if the [...] 10:24:10 EDT, Aerosol, Route to Pharmacy Electronically, [id number], [facility] [address] Start Date: 07/19/18 Stop Date: 08/18/18 Status: Ordered Readi-Cat 2 Smoothie [place] 2% oral suspension See Instructions, as instructed [...] Confirmed Active Labial cyst Confirmed 08/11/18 Active Non-Luxembourgish speaking patient - director information 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 Follows with [facility] Nephrology Social History Social History Type Response Smoking Status Former smoker, quit more than 30 days ago entered on: 04/02/18 Sex Patient Care team information Care Team Personnel Name: Martha Fernandez NP Position: Reference Physician Member Role: Primary Care Nurse Address: Address: [address] [place] [address]- Name: Ruthie Mosqueda Position: [facility] Outreach Member Role: Lifetime Consulting Physician Name: Rosaura Sy MD Position: [facility] Outreach Member Role: Lifetime Consulting Physician Name: Garland Jaeger DO Position: [facility] Renal MD Member Role: Lifetime Consulting Physician Address: Address: [address] [facility] [address] [facility] [place] [place] [address]- [place] Name: Vickie Beckwith NP Position: [facility] Associate Professional Member Role: PCP Address: Address: [address] [place] [address], [facility] [address] [place] [address]- [place] Name: Clem Bright NP Position: [facility] PCO Associate Professional Member Role: Primary Care Nurse Address: Address: [address] [facility] 3rd [place] [address]- [place] Name: Surekha Yun RN Position: [facility] RN Member Role: Primary Care Nurse Name: Simran Dupont RN Position: [facility] SN RN Member Role: Primary Care Nurse Care Team Related Persons Name: LORRAINE YADAV Address: home [address] [place] [address] Name: GLEN ORTIZ Address: home [address] [place] [address] Name: JESUS BRAN Address: home [place]ESS [id number]
--- OUTSIDE RECORDS SUMMARY | 2024-01-15 13:15 | XMS_ITS | Continuity of Care Document ---
Author Organization [facility] Address [address] [place] [address]- Care Team Providers Care Side Laster Staple Name Role Phone Not on Staff, PCP Primary Care Physician Unavail able Encounter [facility] Date(s): 11/23/23 - 12/23/23 [facility] [address] [place] [address]- [place] Allergies, Adverse Reactions, Alerts Substance Reaction Severity [...] 09/17/2010 4Result Comment: [11/27/2014] Sterile Diluent Lot# [id number]; Exp: 03/28/2017 5Admin Note: VIS GIVEN 11/28/08 [...] 0 Refills, Maintenance, 06/26/20 12:05:00 EDT, Tablet, [facility] #[id number], Partial fill upon patient request if the prescription is for a schedule II opioid drug., 158, cm, 05/10/20 10:52:00 EDT... Start Date: 06/26/20 Stop Date: 07/26/20 Status: Ordered Claritin 10 mg oral tablet 10 mg, 1, tablet, By Mouth, Daily, # 30 tablet, Refills 2, Tot. Refills 2, Maintenance, 07/09/16 9:35:30, Route to Pharmacy Electronically, [id number], [facility] [address]1260 Start Date: 07/09/16 Status: Ordered Colace sodium [...] 10:23:02 EDT, Inhaler, Route to Pharmacy Electronically, [id number], [facility] [address] Start Date: 07/19/18 Stop Date: 07/14/19 Status: [...] 0 Refills, Maintenance, 06/26/20 12:04:00 EDT, Tablet, [facility] #[id number], Partial fill upon patient request if the [...] 10:24:10 EDT, Aerosol, Route to Pharmacy Electronically, [id number], [facility] [address]7710 Start Date: 07/19/18 Stop Date: 08/18/18 Status: Ordered Readi-Cat 2 Smoothie [place] 2% oral suspension See Instructions, as instructed by Radiology, # 2 each, 0 Refills, Maintenance, 10/06/23 14:10:00 EDT, [facility] #[facility], please favor per patient preference, [...] Confirmed Active Labial cyst Confirmed 08/11/18 Active Non-Lithuanian speaking patient - production trainer 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 Follows with [facility] Nephrology Social History Social History Type Response Smoking Status Former smoker, quit more than 30 days ago entered on: 04/02/18 Sex Patient Care team information Care Team Personnel Name: Martha Fernandez NP Position: Reference Physician Member Role: Primary Care Nurse Address: Address: [address] [place] [address]- Name: Ruthie Mosqueda Position: [facility] Outreach Member Role: Lifetime Consulting Physician Name: oRsaura Sy MD Position: S Outreach Member Role: Lifetime Consulting Physician Name: Garland Jaeger DO Position: [facility] Renal MD Member Role: Lifetime Consulting Physician Address: Address: [address] [place] [address] [address] [facility] [place] [address]- Name: Not on Staff, PCP Position: [facility] Physician (General Medicine) Member Role: PCP Name: Clem Bright NP Position: [facility] PCO Associate Professional Member Role: Primary Care Nurse Address: Address: [address] [place] [address]- Name: Surekha Yun RN Position: [facility] RN Member Role: Primary Care Nurse Name: Simran Dupont RN Position: [facility] SN RN Member Role: Primary Care Nurse Care Team Related Persons Name: LORRAINE YADAV Address: home [address] [place] [address] Name: GLEN ORTIZ Address: home [address] [place] [address] Name: JESUS BRAN Address: home [place]ESS [id number] UM
--- OUTSIDE RECORDS SUMMARY | 2024-01-15 13:15 | XMS_ITS | Continuity of Care Document ---
Author Organization [facility] Address [address] [place] [address]- Care Team Providers Care Roll Scale Worker Name Role Phone Wendy Lofton NP Primary Care Physician [phone] [place] [facility] [place] 10[place]09[place]20 [place] 11/08/20 [facility] [address] [place] [address]- Attending Physician: Carmen Murdock Admitting Physician: AdmCarmen morgan Referring Physician: Carmen Murdock Allergies, Adverse Reactions, [...] 09/17/2010 4Result Comment: [11/27/2014] Sterile Diluent Lot# [id number]; Exp: 03/28/2017 5Admin Note: VIS GIVEN 11/28/08 [...] 0 Refills, Maintenance, 06/26/20 12:05:00 EDT, Tablet, [facility] #[id number], Partial fill upon patient request if the prescription is for a schedule II opioid drug., 158, cm, 05/10/20 10:52:00 EDT... Start Date: 06/26/20 Stop Date: 07/26/20 Status: Ordered Claritin 10 mg oral tablet 10 mg, 1, tablet, By Mouth, Daily, # 30 tablet, Refills 2, Tot. Refills 2, Maintenance, 07/09/16 9:35:30, Route to Pharmacy Electronically, [id number], [facility] [address] Start Date: 07/09/16 Status: Ordered Colace sodium [...] 10:23:02 EDT, Inhaler, Route to Pharmacy Electronically, [id number], [facility] [address] Start Date: 07/19/18 Stop Date: 07/14/19 Status: [...] 0 Refills, Maintenance, 06/26/20 12:04:00 EDT, Tablet, [facility] #[id number], Partial fill upon patient request if the [...] 10:24:10 EDT, Aerosol, Route to Pharmacy Electronically, [id number], [facility] [address] Start Date: 07/19/18 Stop Date: 08/18/18 Status: [...] hernia(Confirmed) Active 1CKD Stage III. Follows with [facility] Nephrology Social History Social History Type Response Smoking Status Former smoker, quit more than 30 days ago entered on: 04/02/18 Sex
--- OUTSIDE RECORDS SUMMARY | 2024-01-15 13:15 | XMS_ITS | Continuity of Care Document ---
Author Organization [facility] Address [address] [place] [address]- Care Team Providers Care Cutter Grinder Operator Name Role Phone Wendy Lofton NP Primary Care Physician [phone] Encounter [facility] Date(s): 08/07/20 - 09/06/20 [facility] [address] [place], [place] [address] Allergies, Adverse Reactions, Alerts Substance Reaction Severity [...] 09/17/2010 4Result Comment: [11/27/2014] Sterile Diluent Lot# [id number]; Exp: 03/28/2017 5Admin Note: VIS GIVEN 11/28/08 [...] 0 Refills, Maintenance, 06/26/20 12:05:00 EDT, Tablet, [facility] #[id number], Partial fill upon patient request if the prescription is for a schedule II opioid drug., 158, cm, 05/10/20 10:52:00 EDT... Start Date: 06/26/20 Stop Date: 07/26/20 Status: Ordered Claritin 10 mg oral tablet 10 mg, 1, tablet, By Mouth, Daily, # 30 tablet, Refills 2, Tot. Refills 2, Maintenance, 07/09/16 9:35:30, Route to Pharmacy Electronically, [id number], [facility] [address] Start Date: 07/09/16 Status: Ordered Colace sodium [...] 10:23:02 EDT, Inhaler, Route to Pharmacy Electronically, [id number], [facility] [address] Start Date: 07/19/18 Stop Date: 07/14/19 Status: [...] 0 Refills, Maintenance, 06/26/20 12:04:00 EDT, Tablet, [facility] #06582, Partial fill upon patient request if the [...] 10:24:10 EDT, Aerosol, Route to Pharmacy Electronically, [id number], [facility] [address] Start Date: 07/19/18 Stop Date: 08/18/18 Status: [...] hernia(Confirmed) Active 1CKD Stage III. Follows with [facility] Nephrology Social History Social History Type Response Smoking Status Former smoker, quit more than 30 days ago entered on: 04/02/18 Sex
--- OUTSIDE RECORDS SUMMARY | 2024-01-15 13:15 | XMS_ITS | Continuity of Care Document ---
Author Organization [facility] [employer] [facility] Address [address] [facility] [place] [address]- Care Team Providers Care Preschool Paraprofessional Name Role Phone Vickie Beckwith NP Primary Care Physician Encounter [facility] [place] Date(s): 07/24/23 - 10/29/23 [facility] [employer] [facility] [address] [facility] [address]th [place] [address]- Attending Physician: Julissa JAUREGUI, [place] Referring Physician: Vickie Beckwith NP Allergies, Adverse Reactions, Alerts Substance Reaction [...] 09/17/2010 4Result Comment: [11/27/2014] Sterile Diluent Lot# [id number]; Exp: 03/28/2017 5Admin Note: VIS GIVEN 11/28/08 [...] 0 Refills, Maintenance, 06/26/20 12:05:00 EDT, Tablet, [facility] #[id number], Partial fill upon patient request if the prescription is for a schedule II opioid drug., 158, cm, 05/10/20 10:52:00 EDT... Start Date: 06/26/20 Stop Date: 07/26/20 Status: Ordered Claritin 10 mg oral tablet 10 mg, 1, tablet, By Mouth, Daily, # 30 tablet, Refills 2, Tot. Refills 2, Maintenance, 07/09/16 9:35:30, Route to Pharmacy Electronically, [id number], [facility] [address]648 Start Date: 07/09/16 Status: Ordered Colace sodium [...] Refills, Maintenance, 10/06/23 14:05:00 EDT, [facility] #[facility], Partial fill upon patient request if the prescription is for a schedule II opioid drug., 158, c... Start Date: 10/06/23 Status: Ordered fluticasone-salmeterol 250 mcg-50 mcg inhalation powder 1, puffs, Inhalation, 2 times a day, # 60 each, Refills 11, Tot. Refills 11, Maintenance, 07/19/18 10:23:02 EDT, Inhaler, Route to Pharmacy Electronically, [id number], [facility] [address] Start Date: 07/19/18 Stop Date: 07/14/19 Status: Ordered furosemide 80 mg oral tablet 80 mg, By Mouth, Daily, # 30 tablet, Refills 0, Tot. Refills 0, Maintenance, 08/12/17 12:47:28 EDT,Print Requisition Start Date: 08/12/17 Stop Date: 09/11/17 Status: Ordered Golytely - oral powder for reconstitution See Instructions, Follow instructions from GI, # 4,000 mL, 0 Refills, Maintenance, 10/06/23 14:06:00 EDT, [facility] #[facility], Partial fill upon patient request if the prescription is for a schedule II opioid drug., Follow instructions from GI, 1... Start Date: 10/06/23 Status: Ordered isosorbide mononitrate 30 mg oral tablet, extended release 30 mg, 1, tablet, By Mouth, Daily in AM, # 90 tablet, Refills 0, Tot. Refills 0, Maintenance, 08/07/20 16:42:00 EDT, Route to Pharmacy Electronically, [facility] #[facility], Partial fill upon patient request [...] 0 Refills, Maintenance, 06/26/20 12:04:00 EDT, Tablet, [facility] #[id number], Partial fill upon patient request if the [...] 10:24:10 EDT, Aerosol, Route to Pharmacy Electronically, [id number], [facility] [address]19 Start Date: 07/19/18 Stop Date: 08/18/18 Status: Ordered Readi-Cat 2 Smoothie [place] 2% oral suspension See Instructions, as instructed [...] Confirmed Active Labial cyst Confirmed 08/11/18 Active Non-Israeli speaking patient - interpreter and translator 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 Follows with [facility] Social History Social History Type Response Smoking Status Former smoker, quit more than 30 days ago entered on: 04/02/18 Sex Patient Care team information Care Team Personnel Name: Martha Fernandez NP Position: Reference Physician Member Role: Primary Care Nurse Address: Address: [address] [place] [address]- Name: Ruthie Mosqueda Position: [facility] Outreach Member Role: Lifetime Consulting Physician Name: Rosaura Sy MD Position: [facility] Outreach Member Role: Lifetime Consulting Physician Name: Garland Jaeger DO Position: [facility] Renal MD Member Role: Lifetime Consulting Physician Address: Address: [address] [facility] [address] [facility] [place] [address]- [place] Name: Vickie Beckwith NP Position: [facility] Associate Professional Member Role: PCP Address: Address: [address] [place] [address], [facility] [address] [place] [address]- [place] Name: Clem Bright NP Position: [facility] PCO Associate Professional Member Role: Primary Care Nurse Address: Address: [address] [facility] 3rd [place] [address]- [place] Name: Surekha Yun RN Position: [facility] RN Member Role: Primary Care Nurse Name: Simran Dupont RN Position: [facility] SN RN Member Role: Primary Care Nurse Care Team Related Persons Name: YADAV LORRAINE Address: home [address] [place] [address] Name: GLEN ORTIZ Address: home [address] [place] [address] Name: JESUS BRAN Address: home [place]ESS [address]
--- OUTSIDE RECORDS SUMMARY | 2024-01-15 13:16 | XMS_ITS | Continuity of Care Document ---
Author Organization [facility] Address [address] [place] [address]- Care Team Providers Care Aws Consultant Name Role Phone Wendy Lofton NP Primary Care Physician [facility]counter [facility] Date(s): 02/07/19 - 02/07/[address] [address]- [facility] Attending Physician: Nubia JAUREGUI, [place] Allergies, [...] 09/17/2010 4Result Comment: [11/27/2014] Sterile Diluent Lot# [id number]; Exp: 03/28/2017 5Admin Note: VIS GIVEN 11/28/08 [...] Maintenance, 07/09/16 9:35:30, Route to Pharmacy Electronically, [id number], [facility] [address] Start Date: 07/09/16 Status: Ordered Colace sodium 100 mg oral capsule 1 capsule = 100 mg, By Mouth, 2 times a day, PRN for constipation, # 20 capsule, 0 Refills, Maintenance, 10/27/14 10:53:09, Capsule Start Date: 10/27/14 Status: Ordered ergocalciferol 57430 iu oral capsule TK 1 C PO ONCE Q WEEK Start Date: 04/30/17 Status: Ordered fluticasone-salmeterol 250 mcg-50 mcg inhalation powder 1, puffs, Inhalation, 2 times a day, # 60 each, Refills 11, Tot. Refills 11, Maintenance, 07/19/18 10:23:02 EDT, Inhaler, Route to Pharmacy Electronically, [id number], [facility] [address] Start Date: 07/19/18 Stop Date: 07/14/19 Status: [...] 10:24:10 EDT, Aerosol, Route to Pharmacy Electronically, [id number], [facility] [address] Start Date: 07/19/18 Stop Date: 08/18/18 Status: [...] hernia(Confirmed) Active 1CKD Stage III. Follows with [facility] Nephrology Social History Social History Type Response Smoking Status Former smoker, quit more than 30 days ago entered on: 04/02/18 Sex
--- OUTSIDE RECORDS SUMMARY | 2024-01-15 13:16 | XMS_ITS | Continuity of Care Document ---
Author Organization [facility] Address [address] [place] [address]- Care Team Providers Care Language Tutor Name Role Phone Not on Staff, PCP Primary Care Physician Unavail able [facility]counter [facility] Date(s): 11/09/23 - 12/09/23 [facility] [address] [place] [address]- [place] Allergies, Adverse Reactions, Alerts Substance Reaction [...] 09/17/2010 4Result Comment: [11/27/2014] Sterile Diluent Lot# [id number]; Exp: 03/28/2017 5Admin Note: VIS GIVEN 11/28/08 [...] 0 Refills, Maintenance, 06/26/20 12:05:00 EDT, Tablet, [facility] #[id number], Partial fill upon patient request if the prescription is for a schedule II opioid drug., 158, cm, 05/10/20 10:52:00 EDT... Start Date: 06/26/20 Stop Date: 07/26/20 Status: Ordered Claritin 10 mg oral tablet 10 mg, 1, tablet, By Mouth, Daily, # 30 tablet, Refills 2, Tot. Refills 2, Maintenance, 07/09/16 9:35:30, Route to Pharmacy Electronically, [id number], [facility] [address] Start Date: 07/09/16 Status: Ordered Colace sodium [...] 10:23:02 EDT, Inhaler, Route to Pharmacy Electronically, [id number], [facility] [address] Start Date: 07/19/18 Stop Date: 07/14/19 Status: [...] 0 Refills, Maintenance, 06/26/20 12:04:00 EDT, Tablet, [facility] #97433, Partial fill upon patient request if the [...] 10:24:10 EDT, Aerosol, Route to Pharmacy Electronically, [id number], [facility] [address] Start Date: 07/19/18 Stop Date: 08/18/18 Status: Ordered Readi-Cat 2 Smoothie [place] 2% oral suspension See Instructions, as instructed by Radiology, # 2 each, 0 Refills, Maintenance, 10/06/23 14:10:00 EDT, [facility] #[facility], please favor per patient preference, [...] Confirmed Active 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 Outreach Member Role: Lifetime Consulting Physician Name: Rosaura Sy MD Position: S Outreach Member Role: Lifetime Consulting Physician Name: Garland Jaeger DO Position: [facility] Renal MD Member Role: Lifetime Consulting Physician Address: Address: [address] [place], [place] [address] [place] [place] [address] Name: Not on Staff, PCP Position: [facility] Physician (General Medicine) Member Role: PCP Name: Clem Bright NP Position: [facility] PCO Associate Professional Member Role: Primary Care Nurse Address: Address: [address] [place] [address]- Name: Surekha Yun RN Position: [facility] RN Member Role: Primary Care Nurse Name: Simran Dupont RN Position: [facility] SN RN Member Role: Primary Care Nurse Care Team Related Persons Name: LORRAINE YADAV Address: home [address] [place] [address] Name: GLEN ORTIZ Address: [address] [place] [address] Name: JESUS BRAN Address: home [place]ESS [address] [place]
--- OUTSIDE RECORDS SUMMARY | 2024-01-15 13:16 | XMS_ITS | Continuity of Care Document ---
Author Organization [facility] Delonte Albert n's [facility] Address [address], 4t [place] [address]- Care Team Providers Care Quantitative Research Analyst Name Role Phone Wendy Lofton NP Primary Care Physician [phone] [place] [facility] [place] Date(s): 08/14/23 - 09/13/23 [facility] [address], 4th [place] [address]- Allergies, Adverse Reactions, Alerts Substance Reaction Severity [...] 09/17/2010 4Result Comment: [11/27/2014] Sterile Diluent Lot# [id number]; Exp: 03/28/2017 5Admin Note: VIS GIVEN 11/28/08 [...] 0 Refills, Maintenance, 06/26/20 12:05:00 EDT, Tablet, [id number], Partial fill upon patient request if the prescription is for a schedule II opioid drug., 158, cm, 05/10/20 10:52:00 EDT... Start Date: 06/26/20 Stop Date: 07/26/20 Status: Ordered Claritin 10 mg oral tablet 10 mg, 1, tablet, By Mouth, Daily, # 30 tablet, Refills 2, Tot. Refills 2, Maintenance, 07/09/16 9:35:30, Route to Pharmacy Electronically, [id number], [facility] [address] Start Date: 07/09/16 Status: Ordered Colace sodium [...] 10:23:02 EDT, Inhaler, Route to Pharmacy Electronically, [id number], [facility] [address] Start Date: 07/19/18 Stop Date: 07/14/19 Status: [...] 0 Refills, Maintenance, 06/26/20 12:04:00 EDT, Tablet, [facility][id number], Partial fill upon patient request if the [...] 10:24:10 EDT, Aerosol, Route to Pharmacy Electronically, [id number], [facility] [address] Start Date: 07/19/18 Stop Date: 08/18/18 Status: [...] Confirmed Active Labial cyst Confirmed 08/11/18 Active Non-Algerian speaking patient - able bodied tankerman 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 Follows with [facility] Nephrology Social History Social History Type Response Smoking Status Former smoker, quit more than 30 days ago entered on: 04/02/18 Sex Patient Care team information Care Team Personnel Name: Martha Fernandez NP Position: Reference Physician Member Role: Primary Care Nurse Address: Address: [address] [place] [address]- Name: Ruthie Mosqueda Position: [facility] Outreach Member Role: Lifetime Consulting Physician Name: Rosaura Sy MD Position: [facility] Outreach Member Role: Lifetime Consulting Physician Name: Garland Jaeger DO Position: [facility] Renal MD Member Role: Lifetime Consulting Physician Address: Address: [address] [facility] [address] [facility] [place] [address]- Name: Clem Bright NP Position: [facility] PCO Associate Professional Member Role: Primary Care Nurse Address: Address: [address] [place] [address] 3rd [place] [address]- [place] Name: Surekha Yun RN Position: S RN Member Role: Primary Care Nurse Name: Wendy Lofton NP Position: [facility] PCO Associate Professional Member Role: PCP Address: Address: [address] [place] [address]- [place] Name: Simran Dupont RN Position: [facility] SN RN Member Role: Primary Care Nurse Care Team Related Persons Name: LORRAINE YADAV Address: home [address] [place] [address] Name: GLEN ORTIZ Address: home [address] [place] [address] Name: JESUS BRAN Address: home [place] [address]ESS [phone]
--- OUTSIDE RECORDS SUMMARY | 2024-01-15 13:16 | XMS_ITS | Continuity of Care Document ---
Author Organization [facility] Address [address] [facility] [address], 4t [place] [address]- Care Team Providers Care Divorce Attorney Name Role Phone Long Vickie DUBON Primary Care Physician [phone] Encounter [facility] [place] Date(s): 09/29/23 - 10/29/23 [facility] [place] [facility] [address] [facility], 4th [address] [place], [place] [address] Attending Physician: AdmCarmen morgan Admitting Physician: AdmtrCarmen Referring Physician: Admtr, Carmen Allergies, Adverse Reactions, Alerts Substance Reaction Severity [...] 09/17/2010 4Result Comment: [11/27/2014] Sterile Diluent Lot# [id number]; Exp: 03/28/2017 5Admin Note: VIS GIVEN 11/28/08 [...] 0 Refills, Maintenance, 06/26/20 12:05:00 EDT, Tablet, [facility] #[id number], Partial fill upon patient request if the prescription is for a schedule II opioid drug., 158, cm, 05/10/20 10:52:00 EDT... Start Date: 06/26/20 Stop Date: 07/26/20 Status: Ordered Claritin 10 mg oral tablet 10 mg, 1, tablet, By Mouth, Daily, # 30 tablet, Refills 2, Tot. Refills 2, Maintenance, 07/09/16 9:35:30, Route to Pharmacy Electronically, [id number], [facility] [address] Start Date: 07/09/16 Status: Ordered Colace sodium [...] 10:23:02 EDT, Inhaler, Route to Pharmacy Electronically, [id number], [facility] [address] Start Date: 07/19/18 Stop Date: 07/14/19 Status: [...] 0 Refills, Maintenance, 06/26/20 12:04:00 EDT, Tablet, [facility] #[id number], Partial fill upon patient request if the [...] 10:24:10 EDT, Aerosol, Route to Pharmacy Electronically, [id number], [facility] [address] Start Date: 07/19/18 Stop Date: 08/18/18 Status: Ordered Readi-Cat 2 Smoothie [place] 2% oral suspension See Instructions, as instructed [...] Confirmed Active Labial cyst Confirmed 08/11/18 Active Non-Botswanan speaking patient - hotel attendant 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 Follows with [facility] Nephrology Social History Social History Type Response Smoking Status Former smoker, quit more than 30 days ago entered on: 04/02/18 Sex Patient Care team information Care Team Personnel Name: Martha Fernandez NP Position: Reference Physician Member Role: Primary Care Nurse Address: Address: [address] [place] [address]- Name: Ruthie Mosqueda Position: [facility] Outreach Member Role: Lifetime Consulting Physician Name: Rosaura Sy MD Position: [facility] Outreach Member Role: Lifetime Consulting Physician Name: Garland Jaeger DO Position: [facility] Renal MD Member Role: Lifetime Consulting Physician Address: Address: [address] [facility] [address] [facility] [place] [address]- [place] Name: Vickie Beckwith NP Position: [facility] Associate Professional Member Role: PCP Address: Address: [address] [place] [address], [address] [place] [address]- [place] Name: Clem Bright NP Position: [facility] PCO Associate Professional Member Role: Primary Care Nurse Address: Address: [address] [facility] 3rd [place] [address]- [place] Name: Surekha Yun RN Position: [facility] RN Member Role: Primary Care Nurse Name: Simran Dupont RN Position: [facility] SN RN Member Role: Primary Care Nurse Care Team Related Persons Name: LORRAINE YADAV Address: home [address] [place] [address] Name: GLEN ORTIZ Address: home [address] [place] [address] Name: JESUS BRAN Address: home [place]ESS [phone]
--- OUTSIDE RECORDS SUMMARY | 2024-01-15 13:16 | XMS_ITS | Continuity of Care Document ---
Author Organization [facility] Address [address] [place] [address]- Care Team Providers Care Site Reliability Engineer Name Role Phone Rolly DUBON, Wendy Primary Care Physician [place] [facility] [place] - 06/10/19 [facility] [address] [place] [address]- [facility] Attending Physician: Carmen Murdock Admitting Physician: Carmen Murdock Referring Physician: AdmtrCarmen Allergies, Adverse Reactions, Alerts [...] 09/17/2010 4Result Comment: [11/27/2014] Sterile Diluent Lot# [id number]; Exp: 03/28/2017 5Admin Note: VIS GIVEN 11/28/08 [...] Maintenance, 07/09/16 9:35:30, Route to Pharmacy Electronically, [id number], [facility] [address] Start Date: 07/09/16 Status: Ordered Colace sodium [...] 10:23:02 EDT, Inhaler, Route to Pharmacy Electronically, [id number], [facility] [address] Start Date: 07/19/18 Stop Date: 07/14/19 Status: [...] 10:24:10 EDT, Aerosol, Route to Pharmacy Electronically, [id number], [facility] [address] Start Date: 07/19/18 Stop Date: 08/18/18 Status: [...] hernia(Confirmed) Active 1CKD Stage III. Follows with [facility] Nephrology Social History Social History Type Response Smoking Status Former smoker, quit more than 30 days ago entered on: 04/02/18 Sex
--- OUTSIDE RECORDS SUMMARY | 2024-01-15 13:16 | XMS_ITS | Continuity of Care Document ---
Author Organization [facility] Delonte Albert n's [facility] Address [address] [facility], 4t [place] [address]- Care Team Providers Care Extruder Operator Multiple Name Role Phone Long Vickie DUBON Primary Care Physician Encounter [facility] [place] Date(s): 09/22/23 - 10/22/23 [facility] Delontehilda Dean[address] [place] [facility] [address] [facility], 4th [place] [address]- Allergies, Adverse Reactions, Alerts Substance Reaction Severity [...] 09/17/2010 4Result Comment: [11/27/2014] Sterile Diluent Lot# [id number]; Exp: 03/28/2017 5Admin Note: VIS GIVEN 11/28/08 [...] 0 Refills, Maintenance, 06/26/20 12:05:00 EDT, Tablet, [facility][id number], Partial fill upon patient request if the prescription is for a schedule II opioid drug., 158, cm, 05/10/20 10:52:00 EDT... Start Date: 06/26/20 Stop Date: 07/26/20 Status: Ordered Claritin 10 mg oral tablet 10 mg, 1, tablet, By Mouth, Daily, # 30 tablet, Refills 2, Tot. Refills 2, Maintenance, 07/09/16 9:35:30, Route to Pharmacy Electronically, [id number], [facility] [address] Start Date: 07/09/16 Status: Ordered Colace sodium [...] 10:23:02 EDT, Inhaler, Route to Pharmacy Electronically, [id number], [facility] [address] Start Date: 07/19/18 Stop Date: 07/14/19 Status: [...] 0 Refills, Maintenance, 06/26/20 12:04:00 EDT, Tablet, [facility][id number], Partial fill upon patient request if the [...] 10:24:10 EDT, Aerosol, Route to Pharmacy Electronically, [id number], [facility] [address] Start Date: 07/19/18 Stop Date: 08/18/18 Status: Ordered Readi-Cat 2 Smoothie [place] 2% oral suspension See Instructions, as instructed [...] Confirmed 08/11/18 Active Non-Italian speaking patient - slug press operator 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 Follows with [facility] Nephrology Social History Social History Type Response Smoking Status Former smoker, quit more than 30 days ago entered on: 04/02/18 Sex Patient Care team information Care Team Personnel Name: Martha Fernandez NP Position: Reference Physician Member Role: Primary Care Nurse Address: Address: [address] [place] [address]- Name: Ruthie Mosqueda Position: S Outreach Member Role: Lifetime Consulting Physician Name: Rosaura Sy MD Position: [facility] Outreach Member Role: Lifetime Consulting Physician Name: Garland Jaeger DO Position: [facility] Renal MD Member Role: Lifetime Consulting Physician Address: Address: [address] [facility] [facility] [address] [facility] [place] [address]- [place] Name: Vickie Beckwith NP Position: [facility] Associate Professional Member Role: PCP Address: Address: [address] [place] [address], [facility] [address] [place] [address]- [place] Name: Clem Bright NP Position: [facility] PCO Associate Professional Member Role: Primary Care Nurse Address: Address: [address] [facility] 3rd [place] [address]- [place] Name: Surekha Yun RN Position: [facility] RN Member Role: Primary Care Nurse Name: Simran Dupont RN Position: [facility] SN RN Member Role: Primary Care Nurse Care Team Related Persons Name: LORRAINE YADAV Address: home [address] [place] [address] Name: GLEN ORTIZ Address: home [address] [place] [address] Name: JESUS BRAN Address: home [place]ESS [phone] UM
--- OUTSIDE RECORDS SUMMARY | 2024-01-15 13:16 | XMS_ITS | Continuity of Care Document ---
Author Organization [facility] Address [address] [place] [address]- Care Team Providers Care Manager Terminal Name Role Phone Rolly DUBON, Wendy Primary Care Physician En[place] [facility] [place](s): 11/04/19 - 03/03/20 [facility] [address] [place], [place] [address] Attending Physician: Vu Haas MD Admitting Physician: Vu Haas MD Referring Physician: Roberta Pires Allergies, Adverse Reactions, Alerts Substance Reaction Severity [...] 09/17/2010 4Result Comment: [11/27/2014] Sterile Diluent Lot# [id number]; Exp: 03/28/2017 5Admin Note: VIS GIVEN 11/28/08 [...] Maintenance, 07/09/16 9:35:30, Route to Pharmacy Electronically, [id number], [facility] [address] Start Date: 07/09/16 Status: Ordered Colace sodium [...] 10:23:02 EDT, Inhaler, Route to Pharmacy Electronically, [id number], [facility] [address] Start Date: 07/19/18 Stop Date: 07/14/19 Status: [...] 10:24:10 EDT, Aerosol, Route to Pharmacy Electronically, [id number], [facility] [address] Start Date: 07/19/18 Stop Date: 08/18/18 Status: [...] hernia(Confirmed) Active 1CKD Stage III. Follows with [facility] Nephrology Social History Social History Type Response Smoking Status Former smoker, quit more than 30 days ago entered on: 04/02/18 Sex
--- OUTSIDE RECORDS SUMMARY | 2024-01-15 13:16 | XMS_ITS | Continuity of Care Document ---
Author Organization [facility] Address [address] [place] [address]- Care Team Providers Care Brazer Induction Name Role Phone Rolly UDBON, Wendy Primary Care Physician En[facility] [place] Date(s): 08/23/20 - 09/28/[address] [address] Attending Physician: Bhavna Quiles NP Admitting Physician: Bhavna Quiles NP Referring Physician: Bhavna Quiles NP Allergies, Adverse Reactions, Alerts Substance Reaction [...] 09/17/2010 4Result Comment: [11/27/2014] Sterile Diluent Lot# [id number]; Exp: 03/28/2017 5Admin Note: VIS GIVEN 11/28/08 [...] 0 Refills, Maintenance, 06/26/20 12:05:00 EDT, Tablet, [facility] #[id number], Partial fill upon patient request if the prescription is for a schedule II opioid drug., 158, cm, 05/10/20 10:52:00 EDT... Start Date: 06/26/20 Stop Date: 07/26/20 Status: Ordered Claritin 10 mg oral tablet 10 mg, 1, tablet, By Mouth, Daily, # 30 tablet, Refills 2, Tot. Refills 2, Maintenance, 07/09/16 9:35:30, Route to Pharmacy Electronically, [id number], [facility] [address] Start Date: 07/09/16 Status: Ordered Colace sodium [...] 10:23:02 EDT, Inhaler, Route to Pharmacy Electronically, [id number], [facility] [address] Start Date: 07/19/18 Stop Date: 07/14/19 Status: [...] 0 Refills, Maintenance, 06/26/20 12:04:00 EDT, Tablet, [facility] #[id number], Partial fill upon patient request if the [...] 10:24:10 EDT, Aerosol, Route to Pharmacy Electronically, [id number], [facility] [address] Start Date: 07/19/18 Stop Date: 08/18/18 Status: [...] hernia(Confirmed) Active 1CKD Stage III. Follows with [facility] Social History Social History Type Response Smoking Status Former smoker, quit more than 30 days ago entered on: 04/02/18 Sex
--- OUTSIDE RECORDS SUMMARY | 2024-01-15 13:16 | XMS_ITS | Continuity of Care Document ---
Author Organization [facility] Address [address] [facility], 4t [place] [address]- Care Team Providers Care Channel Director Name Role Phone Wendy Lofton NP Primary Care Physician [phone] Encounter [facility] [place] Date(s): 04/23/23 - 05/23/23 [facility]ilda [facility] [address] [facility], 4th Floor [place], [place] [address] Attending Physician: Carmen Murdock Admitting Physician: AdmCarmen [...] 09/17/2010 4Result Comment: [11/27/2014] Sterile Diluent Lot# [id number]; Exp: 03/28/2017 5Admin Note: VIS GIVEN 11/28/08 [...] 0 Refills, Maintenance, 06/26/20 12:05:00 EDT, Tablet, [facility][id number], Partial fill upon patient request if the prescription is for a schedule II opioid drug., 158, cm, 05/10/20 10:52:00 EDT... Start Date: 06/26/20 Stop Date: 07/26/20 Status: Ordered Claritin 10 mg oral tablet 10 mg, 1, tablet, By Mouth, Daily, # 30 tablet, Refills 2, Tot. Refills 2, Maintenance, 07/09/16 9:35:30, Route to Pharmacy Electronically, [id number], [facility] [address] Start Date: 07/09/16 Status: Ordered Colace sodium [...] 10:23:02 EDT, Inhaler, Route to Pharmacy Electronically, [id number], [facility] [address] Start Date: 07/19/18 Stop Date: 07/14/19 Status: [...] 0 Refills, Maintenance, 06/26/20 12:04:00 EDT, Tablet, [facility][id number], Partial fill upon patient request if the [...] 10:24:10 EDT, Aerosol, Route to Pharmacy Electronically, [id number], [facility] [address] Start Date: 07/19/18 Stop Date: 08/18/18 Status: [...] Confirmed Active Labial cyst Confirmed 08/11/18 Active Non-Dominican speaking patient - park interpreter required Confirmed [...] Confirmed Active 1CKD Stage III. Follows with [facility]ph[facility] Social History Social History Type Response Smoking Status Former smoker, quit more than 30 days ago entered on: 04/02/18 Sex Patient Care team information Care Team Personnel Name: Martha Fernandez NP Position: Reference Physician Member Role: Primary Care Nurse Address: Address: [address] [place] [address]- [place] Name: Ruthie Mosqueda Position: [facility] Outreach Member Role: Lifetime Consulting Physician Name: Rosaura Sy MD Position: [facility] Outreach Member Role: Lifetime Consulting Physician Name: Garland Jaeger DO Position: [facility] Renal MD Member Role: Lifetime Consulting Physician Address: Address: [address] [place] [address] [address] [facility] [place] [address]- [place] Name: Clem Bright NP Position: [facility] PCO Associate Professional Member Role: Primary Care Nurse Address: Address: [address] [facility] 3rd [place] [address]- [place] Name: Surekha Yun RN Position: [facility] RN Member Role: Primary Care Nurse Name: Wendy Lofton NP Position: [facility] PCO Associate Professional Member Role: PCP Address: Address: [address] [place] [address], [address] [address]- [place] Name: Simran Dupont RN Position: [facility] SN RN Member Role: Primary Care Nurse Care Team Related Persons Name: LORRAINE YADAV Address: home [address] [place] [address] Name: GLEN ORTIZ Address: home [address] [place] [address] Name: JESUS BRAN Address: home [place]ESS [address]
--- OUTSIDE RECORDS SUMMARY | 2024-01-15 13:16 | XMS_ITS | Continuity of Care Document ---
Author Organization [facility] Address [address] [place] [address]- Care Team Providers Care School Administrator Name Role Phone Rolly DUBON, Wendy Primary Care Physician Encounter [facility] Date(s): 06/22/20 - 06/26/[address] [address]- Encounter Diagnosis ACS (acute coronary syndrome)(Final) - 06/22/20 Diabetes(Final) - 06/22/20 ESRD on dialysis(Final) - 06/22/20 Discharge Disposition: A-D/C Home Attending Physician: Francisco Herrera MD Admitting Physician: Geo JAUREGUI, Jacquie Dunne Referring Physician: Not on Staff, Referring MD [...] 09/17/2010 4Result Comment: [11/27/2014] Sterile Diluent Lot# [id number]; Exp: 03/28/2017 5Admin Note: VIS GIVEN 11/28/08 [...] 11:56:08, Tablet Start Date: 10/27/14 Status: Ordered amLODIPine 10 mg oral tablet 10 mg, Tablet, By Mouth, 06/26/20 9:00:00 EDT Start Date: 06/26/20 Stop Date: 06/26/20 Status: Completed aspirin 81 mg oral enteric coated tablet 1 tablet = 81 mg, By Mouth, Daily, # 30 tablet, 11 Refills, Maintenance, 09/01/14 9:58:27, EC Tablet Start Date: 09/01/14 Status: Ordered atorvastatin 80 mg oral tablet 1 tablet = 80 mg, By Mouth, Daily, # 30 tablet, 0 Refills, Maintenance, 06/26/20 12:05:00 EDT, Tablet, [facility] #[id number], Partial fill upon patient request if the prescription is for a schedule II opioid drug., 158, cm, 05/10/20 10:52:00 EDT... Start Date: 06/26/20 Stop Date: 07/26/20 Status: Ordered Claritin 10 mg oral tablet 10 mg, 1, tablet, By Mouth, Daily, # 30 tablet, Refills 2, Tot. Refills 2, Maintenance, 07/09/16 9:35:30, Route to Pharmacy Electronically, [id number], [facility] [address] Start Date: 07/09/16 Status: Ordered Colace sodium [...] 10:23:02 EDT, Inhaler, Route to Pharmacy Electronically, [id number], [facility] [address]369 Start Date: 07/19/18 Stop Date: 07/14/19 Status: [...] 0 Refills, Maintenance, 06/26/20 12:04:00 EDT, Tablet, [facility] #[id number], Partial fill upon patient request if the prescription is for a schedule II opioid drug., 158, cm,... Start Date: 06/26/20 Status: Ordered Nitroglycerin 2% Topical 1 inches, Ointment, Topically, Apply to Chest, 06/26/20 10:38:00 EDT Start Date: 06/26/20 Stop Date: 06/26/20 Status: Completed omeprazole 20 mg oral delayed release tablet [...] 10:24:10 EDT, Aerosol, Route to Pharmacy Electronically, [id number], [facility] [address] Start Date: 07/19/18 Stop Date: 08/18/18 Status: [...] hernia(Confirmed) Active 1CKD Stage III. Follows with [facility] Nephrology Results Radiology Reports * Exam Date Time Procedure Performing Provider Status 06/22/20 7:52 AM Chest Portable Letty Marce; Luz (Verified) Notes: (Chest Portable) Reason For Exam: Shortness of Breath RESULT: Chest Portable Chest Portable Hx of Present Illness: Chest pain started at dialysis appointment this morning around 2am. Patient did not receive dialysis treatment today; Reason: Shortness of Breath; Clinical Question(s): CHF COMPARISON: Multiple priors, most recent 06/16/2018. FINDINGS: LINES AND TUBES: Monitoring leads project over the chest. LUNGS AND PLEURA: Low lung volumes with mild perihilar interstitial prominence and mild vascular engorgement. No focal consolidation. No large pleural effusion. No pneumothorax. HEART, MEDIASTINUM AND ANYA: Heart size is normal for technique. The aortic arch is partially calcified. BONES AND SOFT TISSUES: No acute abnormality. IMPRESSION: Low lung volumes with mild perihilar interstitial opacities and vascular engorgement, which may be secondary to the low lung volumes; however, mild pulmonary edema is not excluded. A [place] message has been communicated via the [employer] system on 06/22/2020 7:59 AM, Message ID [id number]. WSN: [id number] Ordering Physician: Sarina Hernandez Dictated By: Alexx Ma MD Dictated Date/Time: 06/22/20 7:59 am Reviewed By: Alexx Ma MD Signed By: Alexx Ma MD Signed Date/Time: 06/22/20 7:59 am Transcribed By: KALYANI Transcribed Date/Time: 06/22/20 7:56 am Vital Signs Most recent to oldest [Reference Range]: 1 2 3 Oxygen Saturation [94-100 %] 98 % (06/26/20 11:25 AM) 97 % (06/26/20 7:41 AM) 100 % (06/26/20 3:47 AM) Pulse Rate [55-90 bpm] 109 bpm *H* (06/26/20 11:25 AM) 89 bpm (06/26/20 7:41 AM) 92 bpm *H* (06/26/20 3:47 AM) Blood Pressure [90-138/55-84 mm Hg] 131/60mm Hg (06/26/20 11:25 AM) 122/58mm Hg (06/26/20 9:53 AM) 122/58mm Hg (06/26/20 9:43 AM) Respiratory Rate [16-30 br/min] 16 br/min (06/26/20 11:25 AM) 19 br/min (06/26/20 7:45 AM) 20 br/min (06/26/20 7:41 AM) Temperature [96.8-100.4 DegF] 98.4 DegF (06/26/20 11:25 AM) 98.0 DegF (06/26/20 7:41 AM) 98.1 DegF (06/26/20 3:47 AM) Mode of Delivery (Oxygen) Room air (06/26/20 11:25 AM) Room air (06/26/20 7:41 AM) Room air (06/26/20 3:47 AM) Blood pressure sites Leg, right (06/26/20 11:25 AM) Leg, left (06/26/20 7:41 AM) Leg, left (06/26/20 3:47 AM) Temperature Route Oral (06/26/20 11:25 AM) Oral (06/26/20 7:41 AM) Oral (06/26/20 3:47 AM) Social History Social History Type Response Smoking Status Former smoker, quit more than 30 days ago entered on: 04/02/18 Sex
--- OUTSIDE RECORDS SUMMARY | 2024-01-15 13:16 | XMS_ITS | Continuity of Care Document ---
Author Organization [facility] Address [address] [place] [address]- Care Team Providers Care Contact Center Manager Name Role Phone Rolly DUBON, Wendy Primary Care Physician Encounter [facility] [place] Date(s): 11/24/20 - 12/30/[address] [address] Attending Physician: Bhavna Quiles NP Admitting Physician: [...] 09/17/2010 4Result Comment: [11/27/2014] Sterile Diluent Lot# [id number]; Exp: 03/28/2017 5Admin Note: VIS GIVEN 11/28/08 [...] 0 Refills, Maintenance, 06/26/20 12:05:00 EDT, Tablet, [facility] #[id number], Partial fill upon patient request if the prescription is for a schedule II opioid drug., 158, cm, 05/10/20 10:52:00 EDT... Start Date: 06/26/20 Stop Date: 07/26/20 Status: Ordered Claritin 10 mg oral tablet 10 mg, 1, tablet, By Mouth, Daily, # 30 tablet, Refills 2, Tot. Refills 2, Maintenance, 07/09/16 9:35:30, Route to Pharmacy Electronically, [id number], [facility] [address] Start Date: 07/09/16 Status: Ordered Colace sodium [...] 10:23:02 EDT, Inhaler, Route to Pharmacy Electronically, [id number], [facility] [address] Start Date: 07/19/18 Stop Date: 07/14/19 Status: [...] 0 Refills, Maintenance, 06/26/20 12:04:00 EDT, Tablet, [facility] #66074, Partial fill upon patient request if the [...] 10:24:10 EDT, Aerosol, Route to Pharmacy Electronically, [id number], [facility] [address] Start Date: 07/19/18 Stop Date: 08/18/18 Status: [...] hernia(Confirmed) Active 1CKD Stage III. Follows with [facility] Nephrology Social History Social History Type Response Smoking Status Former smoker, quit more than 30 days ago entered on: 04/02/18 Sex
--- OUTSIDE RECORDS SUMMARY | 2024-01-15 13:16 | XMS_ITS | Continuity of Care Document ---
[facility] Address [address], 4t [place] [address]- Care Team Providers Care Senior Systems Administrator Name Role Phone Rolly DUBON, Wendy Primary Care Physician [place] [facility] [place] 02[place] [facility] [address], 4th [address] [place], [place] [address] Attending Physician: Julissa JAUREGUI, [place] Allergies, Adverse Reactions, Alerts Substance Reaction [...] 09/17/2010 4Result Comment: [11/27/2014] Sterile Diluent Lot# [id number]; Exp: 03/28/2017 5Admin Note: VIS GIVEN 11/28/08 [...] 0 Refills, Maintenance, 06/26/20 12:05:00 EDT, Tablet, [facility] #46111, Partial fill upon patient request if the prescription is for a schedule II opioid drug., 158, cm, 05/10/20 10:52:00 EDT... Start Date: 06/26/20 Stop Date: 07/26/20 Status: Ordered Claritin 10 mg oral tablet 10 mg, 1, tablet, By Mouth, Daily, # 30 tablet, Refills 2, Tot. Refills 2, Maintenance, 07/09/16 9:35:30, Route to Pharmacy Electronically, [id number], [facility] [address] Start Date: 07/09/16 Status: Ordered Colace sodium [...] 10:23:02 EDT, Inhaler, Route to Pharmacy Electronically, [id number], [facility] [address] Start Date: 07/19/18 Stop Date: 07/14/19 Status: [...] 0 Refills, Maintenance, 06/26/20 12:04:00 EDT, Tablet, [facility] #17342, Partial fill upon patient request if the [...] 10:24:10 EDT, Aerosol, Route to Pharmacy Electronically, [id number], [facility] [address] Start Date: 07/19/18 Stop Date: 08/18/18 Status: [...] Confirmed Active Labial cyst Confirmed 08/11/18 Active Non-[place] 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 Follows with [facility] Nephrology Procedures Procedure Date Related Diagnosis Body Site Status Bariatric operative procedure 1 12/28/04 Completed 1Per patient history - ? if this is correct - she has a sleeve gastrectomy on her list 10/24/14 Vital Signs Most recent to oldest [Reference Range]: 1 Height 158 cm (02/13/22 2:58 PM) Weight 118.18 kg (02/13/22 2:58 PM) Body Mass Index [18.5-24.99 kg/m2] 47.34 kg/m2 *>HHI* (02/13/22 2:58 PM) Blood Pressure [90-138/55-84 mm Hg] 124/ 78mm Hg (02/13/22 2:58 PM) Blood pressure sites Arm, left (02/13/22 2:58 PM) Weight Obtained Via Standing scale (02/13/22 2:58 PM) Social History Social History Type Response Smoking Status Former smoker, quit more than 30 days ago entered on: 04/02/18 Sex Patient Care team information Care Team Personnel Name: Martha Fernandez NP Position: Reference Physician Member Role: Primary Care Nurse Address: Address: [address] [place] [address] [address] [place] [address]- Name: Ruthie Mosqueda Position: [facility] Outreach Member Role: Lifetime Consulting Physician Name: Rosaura Sy MD Position: [facility] Outreach Member Role: Lifetime Consulting Physician Address: Address: [address] [place] [address]- Name: Garland Jaeger DO Position: [facility] Renal MD Member Role: Lifetime Consulting Physician Address: Address: [address] [facility] [place] [address]- [place] Name: Clem Bright NP Position: [facility] PCO Associate Professional Member Role: Primary Care Nurse Address: Address: [address] 3rd [place] [address]- [place] Name: Surekha Yun RN Position: [facility] RN Member Role: Primary Care Nurse Name: Wendy Lofton NP Position: [facility] PCO Associate Professional Member Role: PCP Address: Address: [address] [place] [address], [address] [address]- Name: Simran Dupont RN Position: [facility] SN RN Member Role: Primary Care Nurse Care Team Related Persons Name: LORRAINE YADAV Address: home [address] [place] [address] Name: GLEN ORTIZ Address: [address] [place] [address] Name: JESUS BRAN Address: home [place] [address]ESS [id number]
--- OUTSIDE RECORDS SUMMARY | 2024-01-15 13:16 | XMS_ITS | Continuity of Care Document ---
Author Organization [facility] Address [address] [place] [address]- Care Team Providers Care Clerical Grader Name Role Phone Sudha Kearns MD Primary Care Physician [phone] Encounter [facility] [place] Date(s): 09/26/21 - 10/26/21 [facility] [address] [place] [address]- Attending Physician: Carmen Murdock Admitting Physician: Carmen Murdokc Referring Physician: Carmen Murdock Allergies, Adverse Reactions, [...] 09/17/2010 4Result Comment: [11/27/2014] Sterile Diluent Lot# [id number]; Exp: 03/28/2017 5Admin Note: VIS GIVEN 11/28/08 [...] 0 Refills, Maintenance, 06/26/20 12:05:00 EDT, Tablet, [facility] #[id number], Partial fill upon patient request if the prescription is for a schedule II opioid drug., 158, cm, 05/10/20 10:52:00 EDT... Start Date: 06/26/20 Stop Date: 07/26/20 Status: Ordered Claritin 10 mg oral tablet 10 mg, 1, tablet, By Mouth, Daily, # 30 tablet, Refills 2, Tot. Refills 2, Maintenance, 07/09/16 9:35:30, Route to Pharmacy Electronically, [id number], [facility] [address] Start Date: 07/09/16 Status: Ordered Colace sodium [...] 10:23:02 EDT, Inhaler, Route to Pharmacy Electronically, [id number], [facility] [address] Start Date: 07/19/18 Stop Date: 07/14/19 Status: [...] 0 Refills, Maintenance, 06/26/20 12:04:00 EDT, Tablet, [facility] #[id number], Partial fill upon patient request if the [...] 10:24:10 EDT, Aerosol, Route to Pharmacy Electronically, [id number], [facility] [address] Start Date: 07/19/18 Stop Date: 08/18/18 Status: [...] GABRIELE (obstructive sleep apnea)(Confirmed) Active Osteoarthritis(Confirmed) Active Severe obesity(Confirmed) Active Umbilical hernia(Confirmed) Active 1CKD Stage III. Follows with [facility] Nephrology Social History Social History Type Response Smoking Status Former smoker, quit more than 30 days ago entered on: 04/02/18 Sex Care Team Personnel Name: Sudha Kearns MD Address: [address] [place] [address] [address]
--- OUTSIDE RECORDS SUMMARY | 2024-01-15 13:16 | XMS_ITS | Continuity of Care Document ---
Author Organization [facility] Address [address] [place] [address]- Care Team Providers Care Hospital Food Service Worker Name Role Phone Rolly DUBON, Wendy Primary Care Physician Encounter [facility] Date(s): 06/15/20 - 07/25/[address] [address] Attending Physician: Vu Haas MD Admitting Physician: Vu Haas MD Referring Physician: Vu Haas MD Allergies, Adverse Reactions, Alerts Substance Reaction [...] 09/17/2010 4Result Comment: [11/27/2014] Sterile Diluent Lot# [id number]; Exp: 03/28/2017 5Admin Note: VIS GIVEN 11/28/08 [...] 0 Refills, Maintenance, 06/26/20 12:05:00 EDT, Tablet, [facility] #[id number], Partial fill upon patient request if the prescription is for a schedule II opioid drug., 158, cm, 05/10/20 10:52:00 EDT... Start Date: 06/26/20 Stop Date: 07/26/20 Status: Ordered Claritin 10 mg oral tablet 10 mg, 1, tablet, By Mouth, Daily, # 30 tablet, Refills 2, Tot. Refills 2, Maintenance, 07/09/16 9:35:30, Route to Pharmacy Electronically, [id number], [facility] [address] Start Date: 07/09/16 Status: Ordered Colace sodium [...] 10:23:02 EDT, Inhaler, Route to Pharmacy Electronically, [id number], [facility] [address] Start Date: 07/19/18 Stop Date: 07/14/19 Status: [...] 0 Refills, Maintenance, 06/26/20 12:04:00 EDT, Tablet, [facility] #25682, Partial fill upon patient request if the [...] 10:24:10 EDT, Aerosol, Route to Pharmacy Electronically, [id number], [facility] [address] Start Date: 07/19/18 Stop Date: 08/18/18 Status: [...] hernia(Confirmed) Active 1CKD Stage III. Follows with [facility] Nephrology Social History Social History Type Response Smoking Status Former smoker, quit more than 30 days ago entered on: 04/02/18 Sex
--- OUTSIDE RECORDS SUMMARY | 2024-01-15 13:16 | XMS_ITS | Continuity of Care Document ---
Author Organization [facility] Address [address], 4t [place] [address]- Care Team Providers Care Middle School Assistant Principal Name Role Phone Rolly DUBON, Wendy Primary Care Physician [phone] [facility] Date(s): 02/11/22 - 03/15/22 [facility] [address] 4th [address] [place], [place] [address] Attending Physician: Julissa JAUREGUI, [place] Allergies, [...] 09/17/2010 4Result Comment: [11/27/2014] Sterile Diluent Lot# [id number]; Exp: 03/28/2017 5Admin Note: VIS GIVEN 11/28/08 [...] 0 Refills, Maintenance, 06/26/20 12:05:00 EDT, Tablet, [facility] #[id number], Partial fill upon patient request if the prescription is for a schedule II opioid drug., 158, cm, 05/10/20 10:52:00 EDT... Start Date: 06/26/20 Stop Date: 07/26/20 Status: Ordered Claritin 10 mg oral tablet 10 mg, 1, tablet, By Mouth, Daily, # 30 tablet, Refills 2, Tot. Refills 2, Maintenance, 07/09/16 9:35:30, Route to Pharmacy Electronically, [id number], [facility] [address] Start Date: 07/09/16 Status: Ordered Colace sodium [...] 10:23:02 EDT, Inhaler, Route to Pharmacy Electronically, [id number], [facility] [address] Start Date: 07/19/18 Stop Date: 07/14/19 Status: [...] 0 Refills, Maintenance, 06/26/20 12:04:00 EDT, Tablet, [facility] #[id number], Partial fill upon patient request if the [...] 10:24:10 EDT, Aerosol, Route to Pharmacy Electronically, [id number], [facility] [address] Start Date: 07/19/18 Stop Date: 08/18/18 Status: [...] Confirmed 08/11/18 Active 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 Follows with [facility]ph[facility] Social History Social History Type Response Smoking Status Former smoker, quit more than 30 days ago entered on: 04/02/18 Sex Patient Care team information Care Team Personnel Name: Martha Fernandez NP Position: Reference Physician Member Role: Primary Care Nurse Address: Address: [address] [place] [address] - [place] Name: Ruthie Mosqueda Position: [facility] Outreach Member Role: Lifetime Consulting Physician Name: Rosaura Sy MD Position: [facility] Outreach Member Role: Lifetime Consulting Physician Address: Address: [address] [place] [address]- Name: Garland Jaeger DO Position: [facility] Renal MD Member Role: Lifetime Consulting Physician Address: Address: [address] [place], [place] [address] [place] [address]- Name: Clem Bright NP Position: [facility] PCO Associate Professional Member Role: Primary Care Nurse Address: Address: [address] [place] [address] [address]rd floor [place], [place] - [place] Name: Surekha Yun RN Position: [facility] RN Member Role: Primary Care Nurse Name: Wendy Lofton NP Position: [facility] PCO Associate Professional Member Role: PCP Address: Address: [address] [place] [address]- [place] Name: Simran Dupont RN Position: [facility] SN RN Member Role: Primary Care Nurse Care Team Related Persons Name: LORRAINE YADAV Address: home [address] [place] [address] Name: GLEN ORTIZ Address: [address] [place] [address] Name: JESUS BRAN Address: home [place]ESS [phone]
--- OUTSIDE RECORDS SUMMARY | 2024-01-15 13:16 | XMS_ITS | Continuity of Care Document ---
Author Organization [facility] ter Address [address] [place] [address]- Care Team Providers Care Design Technician Name Role Phone Rolly DUBON, Wendy Primary Care Physician Encounter [facility] Date(s): 09/13/19 - 10/22/[address] [address]- [facility] Attending Physician: Wendy Lofton NP [...] 09/17/2010 4Result Comment: [11/27/2014] Sterile Diluent Lot# [id number]; Exp: 03/28/2017 5Admin Note: VIS GIVEN 11/28/08 [...] Maintenance, 07/09/16 9:35:30, Route to Pharmacy Electronically, [id number], [facility] [address] Start Date: 07/09/16 Status: Ordered Colace sodium [...] 10:23:02 EDT, Inhaler, Route to Pharmacy Electronically, [id number], [facility] [address] Start Date: 07/19/18 Stop Date: 07/14/19 Status: [...] 10:24:10 EDT, Aerosol, Route to Pharmacy Electronically, [id number], [facility] [address] Start Date: 07/19/18 Stop Date: 08/18/18 Status: [...] hernia(Confirmed) Active 1CKD Stage III. Follows with [facility] Nephrology Social History Social History Type Response Smoking Status Former smoker, quit more than 30 days ago entered on: 04/02/18 Sex
--- OUTSIDE RECORDS SUMMARY | 2024-01-15 13:16 | XMS_ITS | Continuity of Care Document ---
Author Organization [facility] ter Address [address] [place] [address]- Care Team Providers Care Rail Switchman Name Role Phone Rolly DUBON, Wendy Primary Care Physician [phone] Encounter [facility] Date(s): 04/08/19 - 04/08/[address] [address]- [facility] Attending Physician: Nubia JAUREGUI, [place] Allergies, [...] 09/17/2010 4Result Comment: [11/27/2014] Sterile Diluent Lot# [id number]; Exp: 03/28/2017 5Admin Note: VIS GIVEN 11/28/08 [...] Maintenance, 07/09/16 9:35:30, Route to Pharmacy Electronically, [id number], [facility] [address] Start Date: 07/09/16 Status: Ordered Colace sodium [...] 10:23:02 EDT, Inhaler, Route to Pharmacy Electronically, [id number], [facility] [address] Start Date: 07/19/18 Stop Date: 07/14/19 Status: [...] 10:24:10 EDT, Aerosol, Route to Pharmacy Electronically, [id number], [facility] [address] Start Date: 07/19/18 Stop Date: 08/18/18 Status: [...] hernia(Confirmed) Active 1CKD Stage III. Follows with [facility] Nephrology Social History Social History Type Response Smoking Status Former smoker, quit more than 30 days ago entered on: 04/02/18 Sex
--- OUTSIDE RECORDS SUMMARY | 2024-01-15 13:17 | XMS_ITS | Continuity of Care Document ---
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 Role Phone Wendy Lofton NP Primary Care Physician [place] [facility] [place] 09/05/23 [facility] [address]th [address] [place], [place] [address] Attending Physician: Carmen Murdock Admitting Physician: AdmCarmen [...] 09/17/2010 4Result Comment: [11/27/2014] Sterile Diluent Lot# [id number]; Exp: 03/28/2017 5Admin Note: VIS GIVEN 11/28/08 [...] 0 Refills, Maintenance, 06/26/20 12:05:00 EDT, Tablet, [id number], Partial fill upon patient request if the prescription is for a schedule II opioid drug., 158, cm, 05/10/20 10:52:00 EDT... Start Date: 06/26/20 Stop Date: 07/26/20 Status: Ordered Claritin 10 mg oral tablet 10 mg, 1, tablet, By Mouth, Daily, # 30 tablet, Refills 2, Tot. Refills 2, Maintenance, 07/09/16 9:35:30, Route to Pharmacy Electronically, [id number], [id number] Start Date: 07/09/16 Status: Ordered Colace sodium [...] 10:23:02 EDT, Inhaler, Route to Pharmacy Electronically, [id number], [facility] [id number] Start Date: 07/19/18 Stop Date: 07/14/19 Status: [...] 0 Refills, Maintenance, 06/26/20 12:04:00 EDT, Tablet, [id number], Partial fill upon patient request if the [...] 10:24:10 EDT, Aerosol, Route to Pharmacy Electronically, [id number], [id number] Start Date: 07/19/18 Stop Date: 08/18/18 Status: [...] Confirmed Active Labial cyst Confirmed 08/11/18 Active Non-Nigerien speaking patient - 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 Follows with [facility] Nephrology Social History Social History Type Response Smoking Status Former smoker, quit more than 30 days ago entered on: 04/02/18 Sex Patient Care team information Care Team Personnel Name: Martha Fernandez NP Position: Reference Physician Member Role: Primary Care Nurse Address: Address: [address] [place] [address]- [place] Name: Ruthie Mosqueda Position: [facility] Outreach Member Role: Lifetime Consulting Physician Name: Rosaura Sy MD Position: [facility] Outreach Member Role: Lifetime Consulting Physician Name: Garland Jaeger DO Position: [facility] Renal MD Member Role: Lifetime Consulting Physician Address: Address: [address] [place] [address] [address] [facility] [place] [place] [address]- [place] Name: Clem Bright NP Position: [facility] PCO Associate Professional Member Role: Primary Care Nurse Address: Address: [address] 3rd [place] [address]- [place] Name: Surekha Yun RN Position: [facility] RN Member Role: Primary Care Nurse Name: Wendy Lofton NP Position: [facility] PCO Associate Professional Member Role: PCP Address: Address: [address] [place] [address], [address] [address]- [place] Name: Simran Dupont RN Position: [facility] SN RN Member Role: Primary Care Nurse Care Team Related Persons Name: LORRAINE YADAV Address: home [address] [place] [address] Name: GLEN ORTIZ Address: home [address] [place] [address] Name: JESUS BRAN Address: home [place]ESS [id number]
== END 2024-01-12 11:55 | disposition home or self-care (01) ==
PROVIDERS: Anesthesiology; Nurse Practitioner; PCP Internal Medicine; Visit Provider Surgery
PROC: 0FT44ZZ Resection of Gallbladder, Percutaneous Endoscopic Approach (ICD-10-PCS; CPT 47562; principal; 2024-01-12 07:30)
DX: K80.10 Calculus of gallbladder with chronic cholecystitis without obstruction (principal); K66.0 Peritoneal adhesions (postprocedural) (postinfection); R11.2 Nausea with vomiting, unspecified; K21.9 Gastro-esophageal reflux disease without esophagitis; E11.22 Type 2 diabetes mellitus with diabetic chronic kidney disease; I12.0 Hypertensive chronic kidney disease with stage 5 chronic kidney disease or end stage renal disease; N18.5 Chronic kidney disease, stage 5; Z99.2 Dependence on renal dialysis; Z98.84 Bariatric surgery status; E78.5 Hyperlipidemia, unspecified; E55.9 Vitamin D deficiency, unspecified; G47.33 Obstructive sleep apnea (adult) (pediatric); Z79.82 Long term (current) use of aspirin; Z79.899 Other long term (current) drug therapy; Z88.5 Allergy status to narcotic agent; Z88.8 Allergy status to other drugs, medicaments and biological substances
CPT/HCPCS: 47562; 36415; 80048; 80051; 85025; 88304; 93005; J0131; J1100; J1920; J2003; J2371; J2405; J2704; J2795; J3010

== ENCOUNTER → 2024-01-12 05:52 | Outpatient (BNV) | payer OTHER, SELFPAY | PROVIDERS: PCP Internal Medicine; Visit Provider Surgery | DX: K80.10 Calculus of gallbladder with chronic cholecystitis without obstruction (principal) | CPT/HCPCS: 47562 ==

== ENCOUNTER 2024-01-26 10:07 | Outpatient (AMB) | payer OTHER, SELFPAY ==
--- NOTE | 2024-01-26 10:46 | A.OFFVIS_ITS ---
Vital Signs 01/26/24 11:08 Height 5 ft 2 in Weight 257 lb 7.999 oz BMI 47.1 Pulse 72 Intake Visit Reasons: S/P lap brando Intake Note: Patient is seen in office for post op assessment post laparoscopic cholecystectomy. 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 The pain is brought on sometimes by eating even drinking water. She reports not eating any fatty foods. Patient underwent ultrasound evaluation on 07/14/2023 which revealed multiple mobile gallstones within the gallbladder but a normal gallbladder wall without thickening or pericholecystic fluid. Negative sonographic Olvera sign was noted. CCK HIDA scan performed on 10/13/2023 revealed visualization of the gallbladder but poor emptying of the gallbladder with an ejection fraction of 21% suggestive of chronic cholecystitis. She underwent a laparoscopic cholecystectomy on 01/12/2024 and returns today for a postoperative visit. She was found to have extensive adhesions from a prior umbilical hernia repair. This required an extensive lysis of adhesions during the procedure. She does have some pain in the umbilical area but otherwise feels improved. [facility] Medical History Claustrophobia Dependent on walker for ambulation Wears dentures Eye drainage Murmur Constipation Spinal stenosis of lumbosacral region Psoriasis Type 2 diabetes mellitus with diabetic chronic kidney disease Low back pain Abdominal pain Nausea & vomiting Hemodialysis patient Neuropathy Asthma HLD (hyperlipidemia) CAD (coronary artery disease) HTN (hypertension) Osteoarthritis Major depression Mixed hyperlipidemia Vitamin D deficiency Morbid obesity Obstructive sleep apnea Hemodialysis access, arteriovenous graft Chronic kidney disease, stage 5 GERD (gastroesophageal reflux disease) Surgical History (Updated 01/26/24 @ 11:09 by ADRIANA Rivera) Hx laparoscopic cholecystectomy (01/12/24) Hx of tubal ligation History of bilateral carpal tunnel release (~1982) Hx of colonoscopy Hx of cardiac catheterization (06/25/20) Hx of bariatric surgery (~2014) H/O umbilical hernia repair Bariatric surgery status Family History Sister Breast cancer Social History Household Members: None Housing: Apartment Are you a primary home care attendant to a significant other at home: No Do you presently have visiting nurse or other home services: 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) 75 years or older and lives alone: No Alcohol intake: never Comment: aware of trip hazard Patient Tobacco Use Status: Never used Tobacco Use of substances other than those prescribed or required for medical reasons: No Do you have thoughts of harming others: None Recently lost weight without trying: No Poor oral hygiene: Yes (wears upper and lower dentures) Review of Systems Const Reports body aches and Reports stops breathing during sleep Card Denies chest pain GI Reports abdominal pain, Denies heartburn, Denies nausea and Denies vomiting Psych Reports depression Physical Exam Resp Effort & Inspection: normal respiratory effort, no audible wheezes and no cough GI Other: Abdominal incisions are clean, dry, and intact without redness or discharge. No hernias are identified. Extrem Other: No edema Assessment & Plan Assessment & Plan (1) Chronic cholecystitis: Code(s): K81.1 - Chronic cholecystitis Category: Medical Plan 68-year-old female patient status post laparoscopic cholecystectomy and extensive lysis of adhesions from a prior umbilical hernia repair returning today for wound check. Her wounds are clean, dry, and intact without evidence of infection or hernia. She should continue to avoid fatty/fried foods for one- month and should return as needed. Coding Level of Care Code Global (43567) Diagnoses Chronic cholecystitis K81.1
[2024-01-26 11:08] VITALS: PULSE 72; BMI 47.1
== END 2024-01-26 11:16 | disposition home or self-care (01) ==
PROVIDERS: PCP Nurse Practitioner Family; Visit Provider Surgery
DX: K81.1 Chronic cholecystitis (principal)
CPT/HCPCS: 99024

== ENCOUNTER → 2024-01-26 10:07 | Outpatient (BNVA) | payer OTHER, SELFPAY | PROVIDERS: PCP Nurse Practitioner Family; Visit Provider Surgery | DX: Z09 Encounter for follow-up examination after completed treatment for conditions other than malignant neoplasm (principal); Z90.49 Acquired absence of other specified parts of digestive tract | CPT/HCPCS: 99212 ==

== ENCOUNTER 2024-02-23 11:14 | Emergency (ER) | payer OTHER, SELFPAY ==
[2024-02-23 11:31] VITALS: BP 156/58; BP 160/57; PULSE 76; PULSE 79; RESP 16; TEMP 36.7; O2SAT 94; O2SAT 96; BMI 27.5
--- NOTE | 2024-02-23 11:48 | ED.GENADULT ---
HPI - General Adult General Chief complaint: General Medical Stated complaint: BLEEDING FISTULA AFTER COMPLETED DIALYSIS PER EMS Time Seen by Provider: 02/23/24 11:36 Source: patient Mode of arrival: ambulatory Limitations: no limitations History of Present Illness HPI narrative: This is a 68 years old female presented to the ED via ambulance because of bleeding from dialysis site. She received hemodialysis today she has a fistula in the left forearm. Fistula was bleeding after dialysis Onset (ago): hour(s) (1) Location: upper extremity (left arm) Radiation: non-radiation Severity: mild Relieving factors: none Exacerbating factors: none Related Data Home Medications ?Medication ?Instructions ?Recorded ?Confirmed albuterol sulfate 90 mcg/actuation 90 mcg inhalation Q4-6H PRN 08/04/23 01/04/24 aerosol inhaler Shortness Of Breath Or Wheezing amlodipine 10 mg tablet 10 mg PO DAILY 08/04/23 01/04/24 aspirin 81 mg tablet,delayed 81 mg PO DAILY 08/04/23 01/04/24 release atorvastatin 40 mg tablet 40 mg PO DAILY 08/04/23 01/04/24 carboxymethylcellulose sodium 0.5 1 - 2 drp ophthalmic (eye) BID PRN 08/04/23 12/08/23 % eye drops cetirizine 10 mg tablet 10 mg PO DAILY 08/04/23 01/04/24 cholecalciferol (vitamin D3) 25 25 mcg PO QAM 08/04/23 01/04/24 mcg (1,000 unit) tablet famotidine 10 mg tablet (Heartburn 10 mg PO DAILY 08/04/23 01/04/24 Relief (famotidine)) fluticasone propionate 50 spray intranasal 08/04/23 12/08/23 mcg/actuation nasal spray,suspension isosorbide mononitrate 30 mg 30 mg PO QAM 08/04/23 01/04/24 tablet,extended release 24 hr loteprednol etabonate 0.5 % eye 1 drp ophthalmic (eye) BID 08/04/23 12/08/23 drops,suspension montelukast 10 mg tablet 10 mg PO QPM 08/04/23 01/04/24 olopatadine 0.1 % eye drops 1 drp ophthalmic (eye) Q6-8H PRN 08/04/23 12/08/23 oxycodone 5 mg tablet 5 mg PO TID PRN Pain 08/04/23 01/04/24 pantoprazole 40 mg tablet,delayed 40 mg PO DAILY 08/04/23 01/04/24 release ropinirole 0.25 mg tablet 0.25 mg PO BEDTIME 08/04/23 01/04/24 sevelamer carbonate 800 mg tablet 1,600 mg PO TID 08/04/23 01/04/24 Allergies Allergy/AdvReac Type Severity Reaction Status Date / Time tramadol [TRAMADOL] Allergy Severe ANAPHYLAXIS Verified 02/23/24 11:35 Review of Systems Constitutional: Constitutional: Reports no additional constitutional complaints Cardiovascular: Cardiovascular: Reports no additional cardiovascular complaints Hematologic/Lymphatic: Hematologic/Lymphatic: Reports no additional hematologic/lymphatic complaints [facility] Past Medical History Attestation statement: The following information was validated with the patient. [facility] Narrative: Chronic renal failure Medical History Claustrophobia Dependent on walker for ambulation Wears dentures Eye drainage Murmur Constipation Spinal stenosis of lumbosacral region Psoriasis Type 2 diabetes mellitus with diabetic chronic kidney disease Low back pain Abdominal pain Nausea & vomiting Hemodialysis patient Neuropathy Asthma HLD (hyperlipidemia) CAD (coronary artery disease) HTN (hypertension) Osteoarthritis Major depression Mixed hyperlipidemia Vitamin D deficiency Morbid obesity Obstructive sleep apnea Hemodialysis access, arteriovenous graft Chronic kidney disease, stage 5 GERD (gastroesophageal reflux disease) Surgical History Hx laparoscopic cholecystectomy (01/12/24) Hx of tubal ligation History of bilateral carpal tunnel release (~1982) Hx of colonoscopy Hx of cardiac catheterization (06/25/20) Hx of bariatric surgery (~2014) H/O umbilical hernia repair Bariatric surgery status Family History Family History Sister Breast cancer Social History Social History Household Members: None Housing: Apartment Are you a primary care trainer to a significant other at home: No Do you presently have visiting nurse or other home services: Yes (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) Alcohol intake: never Comment: aware of trip hazard Patient Tobacco Use Status: Never used Tobacco Advance Directives: No Advance Directives Information Provided: Yes Physical Exam ED Vital Signs: Vital Signs - 24 hr 02/23/24 11:31 Temperature 98.1 F Pulse Rate 79 Respiratory Rate 16 Blood Pressure 160/57 H Pulse Oximetry 94 Oxygen Delivery Method Room Air BMI result Body Mass Index 27.5 Patient looks well no distress comfortable Const General: cooperative Nutritional Appearance: average body habitus Orientation/consciousness: patient oriented x3 Limitations: no limitations HENMT Other: Not acute distress Head: Yes normal to inspection General nose exam: Normal external nose present Face and sinus: Yes normal facial exam Mouth: Normal oral and palatal mucosa present Throat: Yes posterior oropharynx normal Neck Neck: Yes normal visual inspection and Yes full ROM Chest Chest palpation & inspection: normal inspection of the chest Resp Effort & Inspection: normal respiratory effort and able to speak in complete sentences Auscultation: clear to auscultation bilaterally Cardio Jugular venous distension: no JVD Palpation: normal PMI Rate: regular rate Rhythm: regular rhythm GI Inspection: Yes normal to inspection Palpation (GI): Soft to palpation, not firm, nontender and no guarding Auscultation: normal bowel sounds Skin General skin exam: no rashes or lesions noted and elasticity normal Neuro General: patient oriented x3 Cranial nerves: Yes CN's II-XII intact bilaterally Extrem Other: Examination of the left arm shows dialysis shunt with she has minimal any bleeding pressure was applied with 4 x 4 and Alcides bandage a Course Reevaluation(s) Reevaluation #1: On re-examination there is no bleeding in the dialysis site anticipate discharge home Discharge Plan Discharge Clinical Impression: Bleeding Hemorrhage of arteriovenous fistula Qualifiers: Encounter type: initial encounter Qualified Code(s): T82.838A - Hemorrhage due to vascular prosthetic devices, implants and grafts, initial encounter Patient Disposition: Home, Self-Care Additional Instructions: Follow-up with your primary care physician return to the emergency room if you worse any concern Prescriptions: No Action oxycodone 5 mg tablet 5 mg PO TID PRN (Reason: Pain) pantoprazole 40 mg tablet,delayed release (DR/EC) 40 mg PO DAILY cholecalciferol (vitamin D3) 25 mcg (1,000 unit) tablet 25 mcg PO QAM aspirin 81 mg tablet,delayed release (DR/EC) 81 mg PO DAILY ropinirole 0.25 mg tablet 0.25 mg PO BEDTIME montelukast 10 mg tablet 10 mg PO QPM sevelamer carbonate 800 mg tablet 1,600 mg PO TID isosorbide mononitrate 30 mg tablet extended release 24 hr 30 mg PO QAM famotidine [Heartburn Relief (famotidine)] 10 mg tablet 10 mg PO DAILY atorvastatin 40 mg tablet 40 mg PO DAILY fluticasone propionate 50 mcg/actuation spray,suspension intranasal amlodipine 10 mg tablet 10 mg PO DAILY cetirizine 10 mg tablet 10 mg PO DAILY olopatadine 0.1 % drops 1 drp ophthalmic (eye) Q6-8H PRN loteprednol etabonate 0.5 % drops,suspension 1 drp ophthalmic (eye) BID carboxymethylcellulose sodium 0.5 % drops 1 - 2 drp ophthalmic (eye) BID PRN albuterol sulfate 90 mcg/actuation HFA aerosol inhaler 90 mcg inhalation Q4-6H PRN (Reason: Shortness Of Breath Or Wheezing) Print Language: Honduran
--- OUTSIDE RECORDS SUMMARY | 2024-02-23 11:52 | XMS_ITS | Data Portability ---
Author Organization [employer] [place] [facility] Address [address] [place] [id number] Care Team Providers Care Sales Account Executive Name Role Phone HIM CCA OTHER Assessment Encounter Date Assessment Date Assessment LastModified by Organization Details LastModified Time 07/09/2022 07/09/2022 As noted, we were called to see this patient regarding concerns of cough, Evaluation in the field was performed by my filer finish colleague, as noted above, I provided real-time direction and supervision for this visit. The evaluation revealed pt w/URI symptoms. Neg covid and flu. Impression: Covid, flu neg. Pt in NAD distress. 02 sat wnls Plan: Saline nasal spray and mucinex for cough. PT prescribed albuterol due to loosing her inhaler Disposition: We discussed the diagnostic uncertainty of home visits and the risk associated with this. In this case, the patient and I felt this to be an acceptable and reasonable amount of risk given the benefit of avoiding an ED visit. We discussed the need to seek care urgently/emerge ntly in the setting of any new or worsening serious symptoms, particularly increased SOB [email or web address] Not available 07/09/2022 13:22:13 Plan of Treatment Reminders Order Date Submit Date Provider Last Modified By Organization Details Last Modified Time Details Appointments None recorded. Lab rapid SARS CoV 2 Ag, QL IA, respiratory specimen 2022 023 [email or web address] 5 Main - [facility], [address] [place] [address], [phone], 3 13:22:03 rapid flu (A+B) 2022 023 [email or web address] 5 Main - [facility], [address] [place] [address], [phone], 3 13:22:03 Referral None recorded. Procedures None recorded. Surgeries None recorded. Imaging None recorded. Medication Orders albuterol sulfate HFA 90 mcg/actuati on aerosol inhaler 2021 022 [place] [facility], [address] [place], [address], 2 13:49:42 albuterol sulfate 2.5 mg/3 mL (0.083 %) solution for nebulizatio n 2021 022 [email or web address] Not available 13:49:40 albuterol sulfate HFA 90 mcg/actuati on aerosol inhaler 2022 023 [place] [facility], [address] [place], [address], 3 13:19:14 olopatadine 0.1 % eye drops 2023 024 [facility], [address] [place] [address], [id number], 4 12:01:41 fluticasone propionate 50 mcg/actuati on nasal spray,suspe nsion 2023 024 [facility], [address] [place], [address], 4 12:01:40 Patient TargetsNo targets recorded. Patient InstructionsNo instructions recorded. Reason for Referral None Reported. Results Created Date Observation Date Name Description Value Unit Range Abnormal Flag Note LastModifiedBy Organization Detail LastModifiedTime 07/10/1907/09/2022 rapid flu (A+B) Flu negati ve Not Available [facility] ed [address] [place] [address], [phone], 07/09/2022 13:21:47 07/10/19 23 07/09/2022 rapid SARS CoV 2 Ag, QL IA, respi rator y speci men rapid SARS CoV 2 Ag, QL IA, respiratory specimen negati ve Not Available Main - [facility] ed [address] [place] [address] [place], [phone], 07/09/2022 13:21:43 07/10/19 23 07/09/2022 progr ess disch kizzy petersen ry* No observ ation record ed. [email or web address] Not Available 2022 15:43:59 Result Notes None recorded. Procedures Surgical History None recorded. Imaging Results Imaging Date Name Status LastModified by Organiz ation Details LastModified Time 07/09/2022 progress discharge summary* completed [email or web address] Information not available 07/09/2022 15:43:59 Procedure Notes None recorded. Medical Equipment None Reported. Medications Name Sig Start Date Stop Date Status Note LastModified by Organization Details LastModified Time atorvastatin 40 mg tablet TAKE ONE TABLET BY MOUTH EVERY DAY AT BEDTIME active Not Available Not Available No t Available betamethason e valerate 0.1 % topical ointment APPLY EXTERNALLY TO THE AFFECTED AREAS ONCE DAILY active Not Available Not Available No t Available atorvastatin 80 mg tablet TAKE ONE TABLET BY MOUTH EVERY DAY AT BEDTIME active Not Available Not Available No t Available prednisone 10 mg tablet TAKE 4 TABLETS BY MOUTH DAILY FOR 3 DAYS, THEN 3 TABLETS DAILY FOR 3 DAYS, THEN 2 TABLETS DAILY FOR 3 DAYS, THEN 1 TABLET DAILY FOR 3 DAYS active Not Available Not Available No t Available ipratropium 0.5 mg-albuterol 3 mg (2.5 mg base)/3 mL nebulization soln USE ONE AMPULE VIA NEBULIZER 4 TIMES DAILY active Not Available Not Available Not Available ketoconazole 2 % shampoo USE DIRECTED EXTERNALLY ON DAY 1 AND REPEAT ON DAY 3 active Not Available Not Available No t Available albuterol sulfate 2.5 mg/3 mL (0.083 %) solution for nebulization INHALE THE CONTENTS OF 1 VIAL VIA NEBULIZER EVERY 6 HOURS NEEDED active Not Available Not Available No t Available ammonium lactate 12 % lotion APPLY TO DRY SKIN TWO TIMES A DAY active Not Available Not Available No t Available polyethylene glycol 3350 17 gram oral powder packet MIX 1 PACKET WITH 8 OUNCES OF FLUID AND DRINK ONCE DAILY active Not Available Not Available No t Available cetirizine 10 mg tablet TAKE ONE TABLET BY MOUTH EVERY DAY NEEDED FOR ALLERGIES active Not Available Not Available No t Available senna 8.6 mg tablet TAKE TWO TABLETS BY MOUTH TWICE A DAY NEEDED active Not Available Not Available No t Available FreeStyle Lancets 28 gauge TEST FOUR TIMES A DAY active Not Available Not Available Not Available ondansetron HCl 4 mg tablet TAKE 1 TABLET BY MOUTH EVERY 8 HOURS NEEDED FOR NAUSEA AND VOMITING active Not Available Not Available No t Available prednisone 20 mg tablet TAKE TWO TABLETS BY MOUTH EVERY DAY active Not Available Not Available No t Available isosorbide mononitrate ER 30 mg tablet,exten ded release 24 hr TAKE ONE TABLET BY MOUTH EVERY DAY IN THE MORNING active Not Available Not Available No t Available aspirin 81 mg tablet,delay ed release TAKE ONE TABLET BY MOUTH EVERY DAY active Not Available Not Available No t Available acetaminophe n 500 mg tablet TAKE 2 TABLETS BY MOUTH EVERY 8 HOURS active Not Available Not Available No t Available lidocaine-pr ilocaine 2.5 %-2.5 % topical cream APPLY SMALL AMOUNT TO ACCESS SITE (AVF) 1 TO 2 HOURS BEFORE DIALYSIS. COVER WITH OCCLUSIVE DRESSING (SARAN WRAP) active Not Available Not Available No t Available ketorolac 0.5 % eye drops STARTING 2 DAYS BEFORE SURGERY INSTILL 1 DROP TWICE DAILY IN OPERATIVE EYE active Not Available Not Available No t Available alprazolam 0.5 mg tablet TAKE 1/2 TABLET PRIOR TO SURGERY. CAN TAKE SECOND HALF OF TABLET NEEDED active Not Available Not Available No t Available methocarbamo l 750 mg tablet TAKE 1 TABLET BY MOUTH EVERY 6 HOURS NEEDED FOR ANALGESIA active Not Available Not Available No t Available ropinirole 0.25 mg tablet TAKE ONE TABLET BY MOUTH EVERY DAY AT BEDTIME active Not Available Not Available No t Available OneTouch Ultra Test strips USE DIRECTED TO CHECK BLOOD SUGARS ONE OR TWO TIMES A DAY active Not Available Not Available Not Available carboxymethy lcellulose sodium 0.5 % eye drops INSTILL 1 TO 2 DROPS IN EACH EYE TWICE DAILY NEEDED active Not Available Not Available No t Available amlodipine 10 mg tablet TAKE ONE TABLET BY MOUTH EVERY DAY active Not Available Not Available No t Available cephalexin 500 mg capsule TAKE ONE CAPSULE BY MOUTH TWICE A DAY FOR 10 DAYS active Not Available Not Available No t Available pantoprazole 40 mg tablet,delay ed release TAKE ONE TABLET BY MOUTH EVERY DAY active Not Available Not Available No t Available triamcinolon e acetonide 0.1 % topical ointment APPLY ONE APPLICATION EXTERNALLY TWICE A DAY active Not Available Not Available Not Available olopatadine 0.1 % eye drops INSTILL 1 DROP INTO AFFECTED EYE S) TWO TIMES A DAY AT AN INTERVAL OF 6-8 HOURS IN BETWEEN) NEEDED FOR ITCHY EYES active Not Available Not Available No t Available lidocaine 5 % topical patch APPLY 1 PATCH TO SKIN DAILY. MAY BE WORN FOR UP TO 12 HOURS AND THEN REMOVED FOR 12 HOURS active Not Available Not Available No t Available docusate sodium 100 mg capsule TAKE ONE CAPSULE BY MOUTH TWICE A DAY NEEDED active Not Available Not Available No t Available omeprazole 20 mg capsule,shin yed release TAKE 1 CAPSULE DAILY active Not Available Not Available No t Available budesonide 0.5 mg/2 mL suspension for nebulization USE 1 VIAL VIA NEBULIZER TWO TIMES A DAY active Not Available Not Available No t Available montelukast 10 mg tablet TAKE ONE TABLET BY MOUTH EVERY EVENING active Not Available Not Available No t Available alcohol swabs USE 2 PADS DAILY DIRECTED ON SKIN SURFACE active Not Available Not Available No t Available loteprednol etabonate 0.5 % eye drops,suspen mallorie INSTILL 1 DROP IN EACH EYE TWO TIMES A DAY active Not Available Not Available No t Available levofloxacin 750 mg tablet TAKE 1 TABLET BY MOUTH EVERY 48 HOURS active Not Available Not Available No t Available albuterol sulfate HFA 90 mcg/actuatio n aerosol inhaler INHALE TWO PUFFS NEEDED EVERY 4 TO 6 HOURS active Not Available Not Available No t Available ketoconazole 2 % topical cream APPLY ONE APPLICATION EXTERNAL TWICE A DAY active Not Available Not Available Not Available fluticasone propionate 50 mcg/actuatio n nasal spray,suspen mallorie INSTILL 2 SPRAYS INTRANASALL Y ONCE DAILY, FOR RUNNY NOSE active Not Available Not Available N ot Available clotrimazole 1 % topical cream APPLY TO AFFECTED AREA(S) TWO TIMES A DAY FOR 7 DAYS active Not Available Not Available N ot Available oxycodone 5 mg tablet TAKE ONE TABLET 2-3 TIMES A DAY NEEDED active Not Available Not Available No t Available Heartburn Relief (famotidine) 10 mg tablet TAKE ONE TABLET BY MOUTH EVERY DAY AT BEDTIME NEEDED active Not Available Not Available No t Available Miconazole-3 200 mg-2 % (9 gram) vaginal kit INSERT 200MG SUPPOSITORY VAGINALLY AT BEDTIME FOR 3 DAYS. APPLY CREAM EXTERNAL TO VAGINA TWICE DAILY FOR 7 DAYS active Not Available Not Available N ot Available Novolog FlexPen U-100 Insulin aspart 100 unit/mL (3 mL) subcutaneous INJECT FOUR TIMES A DAY BEFORE MEALS PER SLIDING SCALE: 150-199 3 UNITS, 200-249 4 UNITS, 250-299 7 UNITS, 300-349 10 UNITS, 350-399 12 UNIT active Not Available Not Available No t Available BD Ultra-Fine Mini Pen Needle 31 gauge x 3/16 USE FOUR TIMES A DAY WITH NOVOLOG active Not Available Not Available No t Available lanthanum 500 mg chewable tablet CHEW AND SWALLOW ONE TABLET BY MOUTH THREE TIMES A DAY WITH EACH MEAL active Not Available Not Available No t Available lanthanum 1,000 mg chewable tablet CHEW AND SWALLOW ONE TABLET BY MOUTH THREE TIMES A DAY BEFORE MEALS active Not Available Not Available No t Available cholecalcife rol (vitamin D3) 25 mcg (1,000 unit) tablet TAKE ONE TABLET BY MOUTH EVERY MORNING active Not Available Not Available No t Available FreeStyle Lite Meter kit TEST FOUR TIMES A DAY active Not Available Not Available Not Available sevelamer carbonate 800 mg tablet TAKE TWO TABLETS BY MOUTH THREE TIMES A DAY WITH MEALS active Not Available Not Available N ot Available melatonin 5 mg tablet TAKE ONE TO TWO TABLETS BY MOUTH NEEDED ONCE A DAY IN THE EVENING active Not Available Not Available Not Available lidocaine 5 % topical ointment APPLY TO AFFECTED AREA(S) EXTERNALLY FOUR TIMES A DAY NEEDED FOR 30 DAYS active Not Available Not Available No t Available melatonin 10 mg tablet TAKE ONE TABLET BY MOUTH BEFORE BEDTIME NEEDED active Not Available Not Available No t Available GenTeal Tears Moderate 0.1 %-0.3 %-0.2 % eye drops ADMINISTER 1 TO 2 DROPS IN EACH EYE TWICE DAILY NEEDED active Not Available Not Available No t Available OneTouch Ultra2 Meter USE DIRECTED TO CHECK BLOOD SUGARS active Not Available Not Available No t Available OneTouch Delica Plus Lancet 30 gauge USE DIRECTED TO CHECK BLOOD SUGARS ONE OR TWO TIMES A DAY active Not Available Not Available Not Available Vitals Date Recorded Body temperature Oxygen saturation Oxygen saturation in Arterial blood by Pulse oximetry Respiratory rate Heart rate Systolic blood pressure Diastolic blood pressure Provider Name and Address Organization Details Last Updated DateTime 4 98.3 [degF] 96 % 96 % 16 /min 99 /min 170 mm[Hg] 65 mm[Hg] Not Available [facility] 4 11:58:46 Date Recorded Oxygen saturation Oxygen saturation in Arterial blood by Pulse oximetry Heart rate Respiratory rate Systolic blood pressure Diastolic blood pressure Provider Name and Address Organization Details Last Updated DateTime 2 99 % 99 % 99 /min 20 /min 118 mm[Hg] 88 mm[Hg] Not Available [facility] 2 14:43:24 Date Recorded Body temperature Heart rate Oxygen saturation Oxygen saturation in Arterial blood by Pulse oximetry Respiratory rate Systolic blood pressure Diastolic blood pressure Provider Name and Address Organization Details Last Updated DateTime 3 98 [degF] 85 /min 98 % 98 % 14 /min 131 mm[Hg] 75 mm[Hg] Not Available [facility] 3 13:17:27 Social History None recorded. Functional Status None recorded. Mental Status None recorded. Family History Nothing Reported. Medical History No medical history recorded. Gynecological HistoryNo gynecological history recorded. Obstetrics History GPAL:G 0 P 0 0 0 0 Past Encounters Encounter ID Performer Location Encounter Start Date Encounter Closed Date Diagnosis/Indication Diagnosis SNOMED-CT Code Diagnosis ICD10 Code [id number] Paul Rucker MD [facility] - [facility] [address] [place] [phone] 07/09/2021 13:46:36 10/31/2021 15:09:46 Asthma 259799199 J45.909 [id number] Garland Brambila MD Main - [facility] [address] [place] [phone] 07/09/2022 13:17:25 07/10/2022 10:08:13 Acute upper respiratory infection [id number] J06.9 [id number] Glenna Rajput MD Main - [facility] [address] [place] [phone] 07/01/2023 11:58:40 07/01/2023 16:23:22 Rhinitis 29201230 J00 Health Concerns Section Related Observation LastModified by Organization Detai ls LastModified Time None Recorded Concern Status LastModified by Organization Details LastModified Time None Recorded Advance Directives Directive None Recorded Payers Encounter Date Sequence Insurance Name Policy Number Policy Maldonado Covered Member ID Maldonado Member ID Guarantor Name 07/09/2021 1 [facility] - DOS PRIOR TO 2022 - DUAL ELIGIBLE (MEDICARE REPLACEMENT/ADV ANTAGE - HMO) Idania Romero [id number] Idania Romero 07/09/2022 1 [facility] - DOS PRIOR TO 2022 - DUAL ELIGIBLE (MEDICARE REPLACEMENT/ADV ANTAGE - HMO) Idania Kellynat [id number] Idania [place] Nick 07/01/2023 1 [facility] - DOS ON OR AFTER 2022 - DUAL ELIGIBLE - HALFWAY OPTIONS AND ONE CARE (MEDICARE REPLACEMENT/ADV ANTAGE - HMO) Idania Luiske [id number] Idania [place] Nick Notes Date Note Type Note Provider Name and Address Organization Details Recorded Time 07/09/2021 text/html HPI: 65 yo mohawk-speaking female with c/o asthma, wheezing, and cp with coughing. Hx of ESRD, DM2, morbid obesity, acute coronary syndrome, chronic pain, hyperlipidemia. Allergies: Tramadol - hives ................... ................... ................... ................... ................... ................... ................... ........ Long Term Acute Care Registered Nurse Note: Chief Complaint shortness of breath Pertinent positive and negative Review of Systems (ROS) findings Constitutional: Afebrile without fatigue/malaise/ lethargy. Denies Chills HEENT: Denies visual changes Resp: non productive cough, slight exp Wheeze, no Hemoptysis, Cardio: Denies Chest pain or palpitations GI: Denies N/V/D or current loss of appetite Genitourinary: Appropriate frequency without pain or odor Musculoskeletal: Pt denies pain or swelling Neuro: Alert to baseline Psych: Denies anxiety or depression Skin: normal dry no rash Endocrine: No new unexpected weight loss/gain Focused Physical Assessment Findings Pt reports non productive cough x1 week, no other complaints. General: Well developed and well nourished in no acute distress HEENT: Unremarkable Neck: Unremarkable Lungs: slight exp wheeze Heart: Regular rate and rhythm Abdomen: abd soft non tender Extremities: No Cyanosis, rash, lesions or edema Neuro: At baseline Psych: Good Affect/Mood/ Attention Skin Intact without rash Covid test neg. Pt had a home neb machine that she did not how to se up. I set it up and educated her on how to use it and gave her 1 albuterol in her machine. PCP sent of rx to pharmacy. ................... ................... ................... ................... ................... ................... ................... ........ Disposition: Fulfilled Paul Rucker MD [address] [place] [address],[address], [place], [phone] [employer] 07/09/2021 15:43:05 07/09/2022 text/html HPI: Mixed HLD, GABRIELE, chronic pain, Pt is on dialysis, CKD, GERD, Psoriasis, Lumbago with sciatica right side. 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 ................... ................... ................... ................... ................... ................... ........ CRC Nursing Assessment: Comments: CRC RN DID NOT NEED FURTHER INFO Garland Brambila MD [address] [facility],[address], [place], [phone], [facility] [employer] [facility] 07/09/2022 13:23:20 07/01/2023 text/html HPI: Aida is a 67 yo Frisian speaking female with hx including Type 2 DM, ESRD on HD, GABRIELE, asthma, EPO resistant anemia, LT aspirin therapy, chronic pain, dry eye syndrome, cardiac microvascular disease, MDD, unsteadiness on feet, GERD, pain in right and left toes, spinal stenosis, OA and Morbid Obesity. Allergy to Tramadol. Aida is a [facility] Primary Mbr. MSR transferred call to this CRU RN due to medical related to allergies and having trouble breathing. Mbr Frisian speaking only and utilized [employer] #[id number] assisted with this call. Mbr reporting that she has cough, bilateral dry red and itchy eyes and some SOB since yesterday. Jayjayr was coughing on phone. Mbr denies fever or chest pain. Mbr stated she had an albuterol inhaler but ran out and needs reorder. Mbr also stated that she needs other meds refilled. Instructed Mbr that she should go to ER. Mbr declined ER and wanted someone to come to the home to evaluate and give her respiratory treatment. Mbr phone contact [phone]. Placed [facility] request informed Mbr today. Instructed Mbr to call 911 and go to ER if worsening s/s and increased SOB and/or chest pain. Mbr agreed. Informed Mbr that [facility] will also be alerted for Mbr follow up. ................... ................... ................... ................... ................... ................... ................... ........ CRC Nurse Triage Notes (Senia Zapata): Comments: HPI reviewed. Long Term Acute Care Registered Nurse POC Test Results from [facility]i [facility] - ALS Rapid influenza antigen (1) [12:08] Flu: - Rapid COVID antigen (1) [12:08] COVID: - ................... ................... ................... ................... ................... ................... ................... ........ Long Term Acute Care Registered Nurse Note From [facility] haskins: Pt reports runny nose, dry/itchy eyes and dry cough since yesterday. Pt reports hx of seasonal allergies and takes cetirizine daily. Pt requesting refill for albuterol MDI. Pt denies CP, SOB, HUTTON, blurry vision, f/n/v/d. Pt is alert, NAD. VSS. Afebrile. Non focal neuro exam. Normal gait. Unremarkable ENT exam. No sinus tenderness. Lungs CTA. Benign ABD exam. No LE edema. Rapid covid and flu negative. [facility] to send rx to pharmacy. Pt educated on rx? s and additional supportive care measures. Pt instructed to f/u with PCP later this week and to seek emergent medical care for new or worsening sx, which are reviewed with her. ................... ................... ................... ................... ................... ................... ................... ........ Disposition: Fulfilled Glenna Rajput MD [address] [place] [address],[address], [place], [phone], FRANC LYNETTE [facility] 07/01/2023 15:14:26 OBGyn Episode No OBEpisode recorded.
--- OUTSIDE RECORDS SUMMARY | 2024-02-23 11:52 | XMS_ITS | Continuity of Care Document ---
Author Organization [facility] ter Address [address] [place] [id number]- Care Team Providers Care Graphics Software Engineer Name Role Phone Lorena Casey MD Primary Care Physician Encounter [facility] [id number] Date(s): 02/20/24 - 02/22/[address] [address]- Encounter Diagnosis Pulmonary edema(Final) - 02/20/24 Hypertensive crisis(Discharge Diagnosis) - 02/20/24 Diabetes(Final) - 02/20/24 ESRD (end stage renal disease)(Final) - 02/20/24 GERD (gastroesophageal reflux disease)(Discharge Diagnosis) - 02/20/24 Anemia of chronic kidney failure(Discharge Diagnosis) - 02/20/24 Asthma(Discharge Diagnosis) - 02/20/24 Pulmonary edema(Final) - 02/22/24 ESRD (end stage renal disease)(Final) - 02/22/24 Diabetes(Final) - 02/22/24 Discharge Disposition: A-D/C Home Attending Physician: Henri Willis MD Admitting Physician: Tremayne JAUREGUI, Hawk Referring Physician: Not on Staff, Referring MD Encounter Type: Disch IP Allergies, Adverse Reactions, Alerts Substance Criticality Severity Reaction Reaction Severity Status traMADol 1 sob Active [...] 09/17/2010 4Result Comment: [11/27/2014] Sterile Diluent Lot# [id number]; Exp: 03/28/2017 5Admin Note: VIS GIVEN 11/28/08 Problem List Condition Confirmation Course Effective Dates Status H ealth Status Informant Anemia Confirmed Active Asthma Confirmed Active Chronic low back pain Confirmed Active Diabetes mellitus Confirmed Active Diabetic neuropathy Confirmed Active End stage renal disease, on dialysis M, W, F Confirmed Active Thickened endometrium Confirmed Active Hypertension (HTN) Confirmed Active Non-Citizen Of The [place] speaking patient - market risk specialist required Confirmed Active Menopausal state (approximately age 36 per patient) Confirmed Active Monoclonal gammopathy Confirmed Active Obstructive sleep apnea (GABRIELE) Confirmed Active Osteoarthritis Confirmed Active History of postmenopausal bleeding Confirmed Active Limited mobility - uses a walker Confirmed Active Last Pap smear 02/09/24 ASCUS with negative HPV. [ ] repeat cotesting 3 years Confirmed Active Severe obesity Confirmed Active Umbilical hernia Confirmed Active Diagnosis Diagnosis Type Effective Dates Health Status Clinical Service Informant GERD (gastroesophageal reflux disease) Discharge Diagnosis 02/20/24 Non-Specified Hypertensive crisis Discharge Diagnosis 02/20/24 Anemia of chronic kidney failure Discharge Diagnosis 02/20/24 Asthma Discharge Diagnosis 02/20/24 Results Radiology Reports * Exam Date Time Procedure Performing Provider Status 02/19/24 7:15 PM Chest 2 Views Frontal and Lat Erik Israel; Luz (Verified) Notes: (Chest 2 Views Frontal and Lat) Reason For Exam: Chest Pain;Other: RESULT: Chest 2 Views Frontal and Lat Chest 2 Views Frontal and Lat Hx of Present Illness: SOB x 2-3 days today worse. had dialysis topday full treatment but does not feel better. c o head aches mild nausea this am no vomiting and chest pressure mild. no fevers or chills; Reason: Other:; Chest Pain; Clinical Question(s): Other: COMPARISON: Multiple priors including 10/19/2020. FINDINGS: LINES AND TUBES: None. LUNGS AND PLEURA: Mildly increased interstitial markings and mild vascular congestion, suggest developing mild pulmonary edema. No focal consolidation. No pleural effusion. No pneumothorax. HEART, MEDIASTINUM AND ANYA: No acute change in cardiac silhouette. Aorta is calcified. No acute change of the upper mediastinal contours. BONES AND SOFT TISSUES: No acute abnormality. IMPRESSION: No acute abnormality. WSN: [id number] Ordering Physician: Nicolas Hernandez Dictated By: Alexx Ma MD Dictated Date/Time: 02/19/24 7:26 pm Reviewed By: Alexx Ma MD Signed By: Alexx Ma MD Signed Date/Time: 02/19/24 7:26 pm Transcribed By: KALYANI Transcribed Date/Time: 02/19/24 7:24 pm Vital Signs Most recent to oldest [Reference Range]: 1 2 3 Height 159 cm (02/22/24 5:05 AM) 159 cm (02/21/24 11:08 PM) 159 cm (02/21/24 8:19 PM) Weight 110.7 kg (02/20/24 9:37 AM) 115 kg (02/20/24 8:33 AM) 115 kg (02/19/24 5:53 PM) Oxygen Saturation [94-100 %] 96 % (02/22/24 5:05 AM) 95 % (02/21/24 11:08 PM) 96 % (02/21/24 8:19 PM) Pulse Rate [55-90 bpm] 73 bpm (02/22/24 5:05 AM) 94 bpm *H* (02/21/24 11:08 PM) 72 bpm (02/21/24 8:19 PM) Body Mass Index [18.5-24.99 kg/m2] 45.49 kg/m2 *>HHI* (02/20/24 8:33 AM) 45.49 kg/m2 *>HHI* (02/19/24 5:42 PM) Blood Pressure [90-138/55-84 mm Hg] 148/74mm Hg *H* (02/22/24 8:56 AM) 148/74mm Hg *H* (02/22/24 8:56 AM) 140/76mm Hg *H* (02/22/24 5:05 AM) Respiratory Rate [16-30 br/min] 18 br/min (02/22/24 5:05 AM) 18 br/min (02/21/24 11:13 PM) 18 br/min (02/21/24 11:08 PM) Temperature [96.8-100.4 DegF] 98.6 DegF (02/22/24 5:05 AM) 98.2 DegF (02/21/24 11:08 PM) 98.6 DegF (02/21/24 8:19 PM) Liters per Minute 2 L/min (02/21/24 8:18 AM) 2 L/min (02/21/24 4:00 AM) 2 L/min (02/21/24 12:00 AM) Mode of Delivery (Oxygen) Room air (02/22/24 5:05 AM) Room air (02/21/24 11:08 PM) Room air (02/21/24 8:19 PM) Blood pressure sites Arm, right (02/22/24 5:05 AM) Arm, right (02/21/24 11:08 PM) Arm, right (02/21/24 8:19 PM) Temperature Route Oral (02/22/24 5:05 AM) Oral (02/21/24 11:08 PM) Oral (02/21/24 8:19 PM) Dry Weight 115 kg (02/20/24 8:33 AM) 115 kg (02/19/24 5:53 PM) Weight Obtained Via Bed scale (02/22/24 5:05 AM) Bed scale (02/20/24 9:37 AM) Social History Social History Type Response Smoking Status Former smoker, quit more than 30 days ago entered on: 04/02/18 Sex Sex Representation Female (finding) Admission evaluation note * Vipul Melgoza MD: MODIFY Vipul Melgoza MD: MODIFY Event Display: Admission Note Authored Date: [id number] Patient: ??IDANIA BRAN ? Age:??68 Years?Sex:??Female?:??1955?? Chief Complaint SOB x days, had full dialysis tx today. pt with hx asthma. on O2 for comfort. History of Present Illness 68 y/o female with ESRD on HD MWF, T2DM, HTN, asthma, GERD and GABRIELE, nonadherent to CPAP??who presents to the hospital with acute onset shortness of breath. She underwent dialysis yesterday and had her usual treatment. Afterwards she developed shortness of breath. There is no orthopnea, lower extremity edema, cough or sputum production. She denies recent sick contacts and aside from some intermittent chills has had no fevers, fatigue or malaise.?? She was significantly hypertensive on arrival, with systolic BPs approaching 200 mmHg.?? Since, her BP has come down to the systolics of 150s and she feels much better. CXR with mild interstitial prominence and vascular congestion which could be ind icative of pulmonary edema. She denies chest pain to me. Troponin is flat and her BNP is significantly elevated. Her EKG has no acute ST segment chances and suggests left ventricular hypertrophy. ?? She is a never smoker and never drinker. Reports to me that her ESRD was due to a medication side effect.?? There is no family history that was contributory. Review of Systems Constitutional:??No weight loss, fever, chills, weakness or fatigue. Allergy/Immune: Denies any??Eczema or hives Eyes:??No visual loss, blurred vision, double vision or yellow sclera ENT:??No hearing loss, sneezing, congestion, runny nose or sore throat. Respiratory:??+ SOB, HUTTON, no cough or sputum production Cardiovascular:??No chest pain, chest pressure or chest discomfort. No palpitations or pedal edema. Gastrointestinal:??No anorexia, nausea, vomiting or diarrhea. No abdominal pain or blood in stool. Genitourinary:??No burning micturition. No urinary frequency or incontinence. Neurologic:??No headache, dizziness, syncope, unilateral weakness, ataxia, numbness or tingling in the extremities. No change in bowel or bladder control. Musculoskeletal:??No muscle pain, back pain, joint pain or stiffness. Hematologic/Lymphatics:??No bleeding or bruising. No painful lymph nodes. Skin:??No rash or itching. Endocrine:??No reports of sweating. No cold or heat intolerance. No polyuria or polydipsia. Psychiatric:??No depression or anxiety. Physical Exam Vitals & Measurements T:??98.1?F?? TMIN:??97.8?F?? TMAX:??98.4?F?? HR:??78??(Peripheral)?? RR:??18?? BP:??155/56?? SpO2:??100%?? WT:??110.7??kg?? Constitutional: Alert, in no distress. Mental Status: Oriented to person, place and time. Head: Normocephalic. Eyes: Pupils are equal, round and reactive to light. Extraocular muscles intact. Ear, Nose and Throat: Oropharynx clear, mucous membranes moist. Respiratory: Scattered crackles in the bases, no wheezing Cardiovascular: S1 S2 regular. No murmurs, rubs or gallops. Gastrointestinal: Abdomen soft, non-tender, non-distended. Neurologic: Cranial nerves II-XII grossly intact. No focal neurological deficits. Musculoskeletal: No cyanosis or clubbing. No gross deformities. Normal range of motion. Psychiatric: Normal mood and affect Assessment/Plan 68 y/o female with ESRD on HD MWF, T2DM, HTN, asthma, GERD and GABRIELE, nonadherent to CPAP??who presented with shortness of breath, a CXR suggestive of pulmonary edema??and significant hypertension consistent with pulmonary edema from hypertensive crisis. ?? Hypertensive crisis (I16.9) ?Associated with??Pulmonary edema (J81.1) ??Re-initiate home antihypertensives Amlodipine 10mg daily Isosorbide mononitrate 30mg daily Would initiate labetalol if she remains hypertensive She is not interested in using CPAP for her untreated GABRIELE Defer lasix to nephro as??it appears they will be using HD for??volume optimization and unclear if she is taking lasix at home ?? Diabetes (E11.9):?? POC glucose chest TID AC and HS Lispro sliding scale ?? ESRD (end stage renal disease) (N18.6) ?Associated with??Anemia of chronic kidney failure (N18.9) Nephrology following For dialysis tomorrow Hgb stable and does not meet criteria for epo currently ?? GERD (gastroesophageal reflux disease) (K21.9):??Lansoprazole ?? Asthma (J45.909):?? Not currently in exacerbation Continue breo??(ICS/LABA) PRN albuterol ?? VTE Prophylaxis:??Pneumatic compression devices ?VTE Prophylaxis Assessment:??VTE Prophylaxis Ordered ?? Code status: Full Diet: Renal ?? Case discussed with the attending, Dr. Melgoza ?? Jeffery Jones DO PGY-6 ?? The patient seen and examined on this date. The case reviewed in detail with admitting resident on this date. I reviewed and agree as above. Dvt, high risk. Vipul Melgoza MD Problem List/Past Medical History Ongoing Anemia Asthma Chronic low back pain Diabetes mellitus Diabetic neuropathy End stage renal disease, on dialysis M, W, F History of postmenopausal bleeding Hypertension (HTN) Last Pap smear 08/11/18 negative with negative HPV Limited mobility - uses a walker Menopausal state (approximately age 36 per patient) Monoclonal gammopathy Non-Citizen Of [place] speaking patient - market risk specialist required Obstructive sleep apnea (GABRIELE) Osteoarthritis Severe obesity Thickened endometrium Umbilical hernia Procedure/Surgical History ???Hysteroscopy with biopsy (02/09/2024)???Laparoscopic cholecystectomy (01/22/2024)???Laparoscopicsleeve gastrectomy (10/24/2014)???Colonoscopy (11/11/2011)???Carpal tunnel release, bilateral (1982)??? bilateral tubal ligation via mini laparotomy (02/20/1978)???Peripheral vascular shuntor bypass, left arm Medications Inpatient Acetaminophen Tablet, 650 mg, By Mouth, Every 4 hours, PRN Albuterol 0.5% inhalation sharon, 0.63 mg= 0.13 mL, Neb, 4 times a day, PRN amLODIPine 10 mg oral tablet, 10 mg, By Mouth, Daily aspirin 81 mg oral delayed release tablet, 81 mg, By Mouth, Daily atorvastatin 80 mg oral tablet, 80 mg, By Mouth, Daily Breo Ellipta 100 mcg-25 mcg Inhaler, 1 puffs, Inhalation, Daily Docusate Sodium Capsule, 100 mg= 1 capsule, By Mouth, 2 times a day, PRN isosorbide mononitrate 30 mg oral tablet, extended release, 30 mg, By Mouth, Daily in AM Lansoprazole OD Tablet, 15 mg, By Mouth, Daily Melatonin Tablet, 3 mg, By Mouth, Daily at bedtime, PRN MiraLax Powder, 17 Gm= 1 pack/packet, By Mouth, Daily, PRN montelukast 10 mg oral tablet, 10 mg, By Mouth, Daily before dinner NaCL 0.9% Flush, 3 mL, IV Push, Every 8 hours NaCL 0.9% Flush, 3 mL, IV Push, Every 8 hours, PRN oxyCODONE 5 mg oral tablet, 5 mg, By Mouth, Every 6 hours, PRN Robitussin DM Liquid, 10 mL, By Mouth, Every 4 hours, PRN Senna Tablet, 8.6 mg= 1 tablet, By Mouth, 2 times a day, PRN Simethicone Tablet, 80 mg, Chew, 3 times a day, PRN Zofran Inj, 4 mg, IV Push, Every 6 hours, PRN Home acetaminophen 325 mg oral tablet, 650 mg, By Mouth, Every 4 hours, PRN albuterol 0.083% inhalation solution, 2.5 mg= 3 mL, Inhalation, Every 6 hours, PRN, 11 refills amLODIPine 10 mg oral tablet, 10 mg= 1 tablet, By Mouth, Daily aspirin 81 mg oral enteric coated tablet, 81 mg= 1 tablet, By Mouth, Daily, 11 refills atorvastatin 80 mg oral tablet, 80 mg= 1 tablet, By Mouth, Daily Claritin 10 mg oral tablet, 10 mg= 1 tablet, By Mouth, Daily, 2 refills Colace sodium 100 mg oral capsule, 100 mg= 1 capsule, By Mouth, 2 times a day, PRN esomeprazole 20 mg oral enteric coated capsule, 20 mg= 1 capsule, By Mouth, 2 times a day, 3 refills fluticasone-salmeterol 250 mcg-50 mcg inhalation powder, 1 puffs, Inhalation, 2 times a day, 11 refills furosemide 80 mg oral tablet, 80 mg, By Mouth, Daily Golytely - oral powder for reconstitution, See Instructions isosorbide mononitrate 30 mg oral tablet, extended release, 30 mg= 1 tablet, By Mouth, Daily in AM melatonin 5 mg oral tablet, 5 mg= 1 tablet, By Mouth, Daily at bedtime, PRN montelukast 10 mg oral tablet, 10 mg, By Mouth, Daily before dinner, 11 refills nitroglycerin 0.4 mg sublingual tablet, 0.4 mg, Sublingual, Every 5 minutes, PRN oxyCODONE 5 mg oral capsule, 5 mg= 1 capsule, By Mouth, Every 6 hours, PRN pantoprazole 40 mg oral delayed release tablet, 40 mg= 1 tablet, By Mouth, Daily ProAir HFA 90 mcg/inh inhalation aerosol with adapter, 1 puffs, Inhalation, Every 6 hours, PRN sevelamer carbonate 800 mg oral tablet, 1600 mg= 2 tablet, By Mouth, 3 times a day sucralfate 1 gm/10 ml oral suspension, 0.5 Gm= 5 mL, By Mouth, 3 times a day before meals and bedtime, 3 refills Vitamin D3 1000 intl units oral tablet, 1000 International_Units= 1 tablet, By Mouth, Daily Zofran 4 mg oral tablet, 4 mg= 1 tablet, By Mouth, Every 8 hours, PRN Allergies traMADol??(sob) Social History Alcohol Use: Current. Frequency: 1-2 times per year. Employment/School Status: Unemployed. Exercise Regular exercise: No. Home/Environment Living situation: Home/Independent. Nutrition/Health Diet: Regular. Sexual Sexually involved in last 6 months: No. Gender identity: Female. Ever been sexually involved? Yes. Gender of partner(s): Male. Substance Abuse Use: Never. Tobacco Use: Former smoker, quit more than 30 days ago. Family History Cancer of colon: Sister. Diabetes mellitus type II: Mother. Immunizations Vaccine Date Status influenza virus vaccine, inactivated 11/28/2014 Recorded Zoster Vaccine Live 11/27/2014 Given Comments : [11/27/2014] Sterile Diluent Lot# [id number]; Exp: 03/28/2017 influenza virus vaccine, inactivated 12/13/2013 Given influenza virus vaccine, inactivated 01/14/2013 Given Comments : vis given 09/17/2012 tetanus/diphtheria/pertussis, acel(Tdap) 10/28/2012 Given influenza virus vaccine, inactivated 10/31/2011 Given Comments : vis given 08/25/11 pneumococcal 23-valent vaccine 07/11/2011 Given Comments : VIS GIVEN ??11/28/08 pneumococcal 23-valent vaccine - Not Given influenza virus vaccine, inactivated 11/22/2010 Given Comments : VIS GIVEN 09/17/2010 EKG study * Event Display: EKG Authored Date: * Event Display: EKG Authored Date: * Event Display: ECG 12-Lead Authored Date: Please click on pdf link to open report * Event Display: ECG 12-Lead Authored Date: Ventricular Rate: 70 BPM Atrial Rate: 70 BPM P-R Interval: 144 ms QRS Duration: 94 ms Q-T Interval: 438 ms QTC Calculation(Bazett): 473 ms P Point Arena: 33 degrees R Point Arena: -5 degrees T Point Arena: 45 degrees Sinus rhythm with Premature atrial complexes Moderate voltage criteria for LVH, may be normal variant ( R in aVL , Renaldo product ) Borderline ECG When compared with ECG of 19-Oct-2020 14:30, Premature atrial complexes are now Present Minimal criteria for Septal infarct are no longer Present Confirmed by JAZMIN VERMA MD ([id number]) on 02/20/2024 9:43:17 AM [place]: JAZMIN VERMA MD Heart * Event Display: Echocardiogram - Complete Authored Date: [id number] Transthoracic Echocardiography Report (TTE) Patient Demographics Patient Name IDANIA BRAN Date of Study 02/22/2024 Corporate Gender Female Facility Race Black .[id number] Ethnicity or Date of 1955 Height: 62.6 inches Age 68 year(s) Weight: 253.53 pounds Accession Number [id number] BSA: 2.13 m2 Room Number [id number] BMI: 45.49 kg/m2 Referring Tremayne Arechiga MD Interpreting Kaitlin Landon MD Physician Physician Poll Watcher Osei Moses Fellow Chrissie Tolliver DO Indications Chest pain. Clinical History chest pain SOB pulm edema Diabetes Mellitus. Study Data Type of Study TTE procedure:Echo Complete-Doppler, Colorflow, M-Mode. Study Date02/22/2024 Start Time: 10:39 AM Study [place] [facility] [place] Status: Bedside Patient Status: Routine Technical Quality: Poor due to body habitus. Blood Pressure:145/84 mmHg EKG: Sinus with ectopy HR: 74 bpm Allergies - Other allergy:(Tramadol). 2D Measurements LV Diastolic Dimension: 6.05 cm LV Systolic Dimension: 3.4 cm LV Septum Diastolic: 1.11 cm LV PW Diastolic: 1 cm AO Root Dimension: 2.6 cm RV Diastolic Dimension: 3.8 cm LA Dimension: 5.4 cm LA ESV (BP):117 ml LVOT Stroke Volume: 86.55 ml LA ESV Index: 55 ml/m2 Stroke Volume Index40.63 ml/m2 LVOT: 2.1 cm Cardiac Index:3 l/min/m2 Ascending Aorta:3.2 cm Doppler Measurements AV Peak Velocity: 260 cm/s MV Peak E-Wave: 183 cm/s AV Peak Gradient: 27.04 mmHg MV Peak A-Wave: 143 cm/s AV Mean Gradient: 15 mmHg MV E/A Ratio: 1.28 AV VTI:59.4 cm LVOT Peak Velocity: 95.3 cm/s MV Mean Gradient: 9 mmHg LVOT VTI25 cm MV Area (continuity): 1.42 cm2 AV Area (Continuity):1.46 cm2 MV Deceleration Time: 352 msec TR Velocity:355 cm/s TR Gradient:50.41 mmHg Estimated RAP:15 mmHg Estimated RVSP: 65.4 mmHg E' Septal Velocity: 6.64 cm/s E' Lateral Velocity: 7.83 cm/s E/Med E':[id number] E/Lat E':23.94555 Cardiac Anatomy Left Ventricle/Interventricular Septum The left ventricle is normal in size by volume. Left ventricular wall thickness is mildly increased. The LV systolic function is normal . The left ventricular ejection fraction visually is 60-65 %. There are no regional wall motion abnormalities. Unable to assess diastolic function due to mitral stenosis . Left Atrium/Interatrial Septum The left atrium is severely dilated. Aortic Valve The aortic valve is trileaflet . The aortic valve appears calcified. There is moderate aortic stenosis. mean gradient of 15mmHg, MELVIN 1.46cm2. No significant aortic insufficiency. Mitral Valve There is severe mitral annular calcification. There is progressive calcific mitral stenosis. The mean gradient is 9 mmHg at a heart rate of 74 bpm. MVA by continuity eq is 1.42cm2. There is mild mitral regurgitation. Aorta The ascending aorta and aortic root are normal in size. Right Ventricle The right ventricle is normal in size and function. Right Atrium The right atrium is normal in size. Pulmonic Valve The pulmonic valve is poorly visualized. There is no significant pulmonic regurgitation. Tricuspid Valve The tricuspid valve is poorly visualized. There is mild to moderate tricuspid valve regurgitation. Pumonary Artery There is severe pulmonary hypertension. The pulmonary artery systolic pressure estimation is 65-70 mmHg. Venous Structures The inferior vena cava is mildly dilated with poor inspiratory collapse consistent with elevated right atrial pressures. Pericardium/Extracardiac There is no significant pericardial effusion. Summary The left ventricle is normal in size by volume. Left ventricular wall thickness is mildly increased. The LV systolic function is normal . The left ventricular ejection fraction visually is 60-65 %. There are no regional wall motion abnormalities. Unable to assess diastolic function due to mitral stenosis . The aortic valve is trileaflet . The aortic valve appears calcified. There is moderate aortic stenosis. mean gradient of 15mmHg, MELVIN 1.46cm2. No significant aortic insufficiency. There is severe mitral annular calcification. There is progressive calcific mitral stenosis. The mean gradient is 9 mmHg at a heart rate of 74 bpm. MVA by continuity eq is 1.42cm2. There is mild mitral regurgitation. The right ventricle is normal in size and function. The tricuspid valve is poorly visualized. There is mild to moderate tricuspid valve regurgitation. There is severe pulmonary hypertension. The pulmonary artery systolic pressure estimation is 65-70 mmHg. There is no significant pericardial effusion. Comparison Comparison is made to the study of December 02, 2022. The degree of mitral and aortic stenosis is slightly progressed. Signature * Event Display: Echocardiogram - Complete Authored Date: Cardiology * Event Display: Cardiac Rhythm Strips Authored Date: * Event Display: Cardiac Rhythm Strips Authored Date: Hospital Progress note * Ritesh Mina MD, I: PERFORM, SIGN, VERIFY Event Display: Progress Note Hospital Authored Date: Patient: IDANIA BRAN Age: 68 years Sex: Female : 1955 Associated Diagnoses: None Author: Ritesh Mina MD, I stable, HD yesterday 3.5L removed, breathing improved Review of Systems Review of Systems Constitutional: no chills, no fever. Respiratory: dyspnea improved. Cardiovascular: no chest pain. Review / Management Hylton Catheter No. Physical Examination Vitals Vitals : VITAL SIGNS SECTION 02/22/2024 5:05 EST Temperature 98.6 DegF Temperature Route Oral Pulse Rate 73 bpm Respiratory Rate 18 br/min Systolic Blood Pressure 140 mm Hg H Diastolic Blood Pressure 76 mm Hg Blood pressure sites Arm, right Mean Arterial Pressure 97 mm Hg Pulse Pressure 64 mm Hg Oxygen Saturation 96 % Mode of Delivery (Oxygen) Room air . General Appearance No apparent distress. Respiratory Lungs: rhonchi. Cardiac No pericardial rub. Neurologic Alert. Results Review General resultsReviewed Results: Today's results. Most recent results Impression and Plan Idania has end-stage kidney disease on dialysis on a Thursday schedule. She presented with shortness of breath and hypoxia. Her viral screening was negative. She ddid not appear to be volume overloaded. She was having issues with accelerated hypertension which has improved. It is unclear to me whether or not she had decompensated diastolic heart failure in the setting of accelerated hypertension. - HD yesterday 3.5L removed - BP is stable - stable respiratory status * Gabriela WALTER, Cade: PERFORM, SIGN, VERIFY Event Display: Progress Note Hospital Authored Date: Patient: IDANIA BRNA Age: 68 years Sex: Female : 1955 Associated Diagnoses: None Author: Gabriela WALTER, Cade Findings Problem Related to Alteration in Cardiac Function (new) : Alteration in Cardiac Function/new 02/21/2024 18:10 EST Alteration in Cardiac Status Related to Other: hypoxia, SOB, fluid overload Goals & Outcomes, Cardiac Status Pt will resume/maintain adequate cardiac output, Pt will resume/maintain adequate hemodynamic status, Pt will resume/maintain adequate respiratory function, Pt will resume/maintain intact neuro function Cardiac Interventions Implemented Assess/monitor cardiac status, Assess/monitor neuro status, Assess/monitor respiratory status BH Goals/Interventions, Cardiac Yes Cardiac, Problem Start 02/21/2024 7:00 Reviewed Plan with, Cardiac Status Patient Patient Progression, Cardiac Status Patient progressing according to plan . Nursing Data Vital Signs : VITAL SIGNS SECTION 02/21/2024 15:34 EST Temperature 98.0 DegF Temperature Route Oral Pulse Rate 63 bpm Respiratory Rate 18 br/min Systolic Blood Pressure 167 mm Hg H Diastolic Blood Pressure 65 mm Hg Blood pressure sites Arm, right Mean Arterial Pressure 99 mm Hg Pulse Pressure 102 mm Hg Oxygen Saturation 99 % Mode of Delivery (Oxygen) Room air 02/21/2024 8:18 EST Temperature 98.2 DegF Temperature Route Oral Pulse Rate 65 bpm Respiratory Rate 18 br/min Systolic Blood Pressure 145 mm Hg H Diastolic Blood Pressure 60 mm Hg Blood pressure sites Arm, right Mean Arterial Pressure 88 mm Hg Pulse Pressure 85 mm Hg Oxygen Saturation 100 % Liters per Minute 2 L/min Mode of Delivery (Oxygen) Nasal cannula . Narrative/Incidental Pt A&Ox4, primarily malaysian speaking only. NSR on tele. LS dim, scattered rhonchi - weaned downfrom 2L to RA satting >97%. 3.5L off at HD today. pt hypertensive, hydralazine ordered and given. prn pain meds given with +effect. pt denies CP, SOB, and dizziness. call kerr within reach, bed/chair alarm enagaged, safety maintained. . * Lazaro JAUREGUI, Henri D: PERFORM Event Display: Progress Note Hospital Authored Date: [id number] Patient: ??LASSEND, IDANIA ? Age:??68 Years?Sex:??Female?:??1955?? Subjective Patient seen at bedside. ??Appears comfortable, was seen during dialysis, used policy value calculator at bedside. ??Denies any nausea vomiting chest pain or shortness of breath currently She would likely have around 3 to 4 L removed during dialysis session if she blood pressure tolerated- No other issues Review of Systems Objective Measurements?? Height: 159 cm (02/21/24) Weight: 110.7 kg (02/20/24) Dry Weight: 115 kg (02/20/24) Body Mass Index:??45.49 kg/m2??Critical (02/20/24) ? Vital Signs?? Temperature: 98 DegF (02/21/24 15:34:00) Temperature Route: Oral (02/21/24 15:34:00) Pulse Rate: 63 bpm (02/21/24 15:34:00) Respiratory Rate: 18 br/min (02/21/24 15:39:00) Systolic Blood Pressure:??167 mm Hg??High (02/21/24 15:34:00) Diastolic Blood Pressure: 65 mm Hg (02/21/24 15:34:00) Blood pressure sites: Arm, right (02/21/24 15:34:00) Mean Arterial Pressure: 99 mm Hg (02/21/24 15:34:00) Pulse Pressure: 102 mm Hg (02/21/24 15:34:00) Oxygen Saturation: 99 % (02/21/24 15:34:00) Liters per Minute: 2 L/min (02/21/24 08:18:00) Mode of Delivery (Oxygen): Room air (02/21/24 15:34:00) Early Warning Score: 3 (02/21/24 15:45:49) ? Precautions No Precautions documented.? Physical Exam General: Is appears comfortable in no distress??morbidly obese HEENT: ??mucous mucous membranes appear wet, PERRLA Cardiovascular: S1-S2 heard no murmurs appreciated Respiratory: CTA without any wheezing or crackles anteriorly GI: Abdomen nontender to palpation, no distention, no obvious hepatosplenomegaly Neuro: AOx3 plus date of , able to raise all extremities on commands Psych: Appears calm without any agitation _ Inpatient Medications Medications (20) Active SCHEDULED: (9) Amlodipine 10 mg Tablet (amLODIPine 10 mg oral tablet) ??10 mg, By Mouth, Daily Aspirin 81 mg EC Tablet (aspirin 81 mg oral delayed release tablet) ??81 mg, By Mouth, Daily Atorvastatin 80 mg Tablet (atorvastatin 80 mg oral tablet) ??80 mg, By Mouth, Daily Breo Ellipta 100 mcg / 25 mcg Inhaler (Breo Ellipta 100 mcg-25 mcg Inhaler) ??1 puffs, Inhalation, Daily Insulin Lispro 100 units/mL Inj (Insulin LISPRO Sliding Scale) ??2-10 units, Subcutaneous Injection, 3 times a day before meals Isosorbide Mononitrate 30 mg ER Tablet (isosorbide mononitrate 30 mg oral tablet, extended release)??30 mg, By Mouth, Daily in AM Lansoprazole 15 mg OD Tablet (Lansoprazole OD Tablet) ??15 mg, By Mouth, Daily Montelukast 10 mg Tablet (montelukast 10 mg oral tablet) ??10 mg, By Mouth, Daily before dinner NaCl 0.9% Flush 3ml (NaCL 0.9% Flush) ??3 mL, IV Push, Every 8 hours CONTINUOUS: (0) PRN: (11) Acetaminophen 325 mg Tablet (Acetaminophen Tablet) ??650 mg, By Mouth, Every 4 hours Albuterol 0.5% Inhalation Solution 0.5mL (Albuterol 0.5% inhalation sharon) ??0.63 mg 0.13 mL, Neb, 4 times a day Dextromethorphan-Guaifenesin 20 mg-200 mg/10 mL Liqu UD (Robitussin DM Liquid) ??10 mL, By Mouth, Every 4 hours Docusate Sodium 100 mg Capsule (Docusate Sodium Capsule) ??100 mg 1 capsule, By Mouth, 2 times a day Melatonin 3 mg Tablet (Melatonin Tablet) ??3 mg, By Mouth, Daily at bedtime NaCl 0.9% Flush 3ml (NaCL 0.9% Flush) ??3 mL, IV Push, Every 8 hours Ondansetron 2mg/mL Inj (2mL Vial) (Zofran Inj) ??4 mg, IV Push, Every 6 hours OxyCODONE 5 mg IR Tablet (oxyCODONE 5 mg oral tablet) ??5 mg, By Mouth, Every 6 hours Polyethylene Glycol 17 Gm Powder (MiraLax Powder) ??17 Gm 1 pack/packet, By Mouth, Daily Senna Tablet ??8.6 mg 1 tablet, By Mouth, 2 times a day Simethicone 80 mg Chewable Tablet (Simethicone Tablet) ??80 mg, Chew, 3 times a day ? Results Recent Labs BLOOD COUNT & DIFF WBC 5.2 k/mm3 ()?? 02/21/2024 02:14 RBC 3.05 m/mm3 (Low)?? 02/21/2024 02:14 Hgb 9.5 Gm/dL (Low)?? 02/21/2024 02:14 Hct 30.7 % (Low)?? 02/21/2024 02:14 MCV 100.7 femtoliters (High)?? 02/21/2024 02:14 MCH 31.1 pg ()?? 02/21/2024 02:14 MCHC 30.9 Gm/dL (Low)?? 02/21/2024 02:14 Platelet Count 117 k/mm3 (Low)?? 02/21/2024 02:14 RDW-SD 57.1 femtoliters (High)?? 02/21/2024 02:14 MPV 10.4 femtoliters ()?? 02/21/2024 02:14 Nucleated RBC (Automated) 0.0 #/100 WBC'S ()?? 02/21/2024 02:14 Abs. NRBC 0.0 k/mm3 ()?? 02/21/2024 02:14 Abs. Neut 3.4 k/mm3 ()?? 02/21/2024 02:14 Abs. Lymph 1.0 k/mm3 ()?? 02/21/2024 02:14 Abs. [place] 0.4 k/mm3 ()?? 02/21/2024 02:14 Abs. Eo 0.3 k/mm3 ()?? 02/21/2024 02:14 Abs. Baso 0.0 k/mm3 ()?? 02/21/2024 02:14 Neut % 65.5 % ()?? 02/21/2024 02:14 Lymph % 19.4 % ()?? 02/21/2024 02:14 [place] % 8.3 % ()?? 02/21/2024 02:14 Eos % 5.4 % ()?? 02/21/2024 02:14 Baso % 0.8 % ()?? 02/21/2024 02:14 Imm Gran 0.6 % ()?? 02/21/2024 02:14 Abs. Imm Gran 0.0 k/mm3 ()?? 02/21/2024 02:14 ?? CARDIAC Nt-Probnp 26517 pg/mL (High)?? 02/19/2024 23:27 High Sensitivity Troponin (HSTnT) 49 ng/L (High)?? 02/20/2024 04:40 ?? CHEM GENERAL Sodium 141 mmol/L ()?? 02/21/2024 02:14 Potassium 5.5 mmol/L (High)?? 02/21/2024 02:14 Chloride 102 mmol/L ()?? 02/21/2024 02:14 Bicarbonate Level 29 mmol/L ()?? 02/21/2024 02:14 Anion Gap 10 ()?? 02/21/2024 02:14 Glucose Level 162 mg/dL (High)?? 02/19/2024 23:27 Glucose, POC 76 mg/dL ()?? 02/21/2024 08:17 BUN 24 mg/dL (High)?? 02/19/2024 23:27 Creatinine-Blood 7.97 mg/dL (High)?? 02/21/2024 02:14 Estimated GFR Creatinine 5 ML/MIN/1.73 M2 ()?? 02/21/2024 02:14 Calcium 10.0 mg/dL ()?? 02/19/2024 23:27 Phosphorus 5.7 mg/dL (High)?? 02/21/2024 02:14 Magnesium 2.3 mg/dL ()?? 02/21/2024 02:14 AST (SGOT) 19 units/L ()?? 02/21/2024 02:14 ALT (SGPT) 17 units/L ()?? 02/21/2024 02:14 Bilirubin, Total 0.3 mg/dL ()?? 02/21/2024 02:14 ?? COAG D-Dimer 0.83 mg/L FEU ()?? 02/20/2024 02:41 ?? URINE OTHER Est Creatinine Clearance 5.41 mL/min ()?? 02/21/2024 03:33 ?? VIROLOGY Influenza A PCR NEGATIVE ()?? 02/19/2024 23:30 Influenza B PCR NEGATIVE ()?? 02/19/2024 23:30 RSV PCR NEGATIVE ()?? 02/19/2024 23:30 COVID-19 PCR Result NEGATIVE ()?? 02/19/2024 23:30 ? Abnormal Labs ?? BLOOD COUNT & DIFF Abs. Imm Gran?0.0 k/mm3 ()?02/21/2024 02:14 Abs. NRBC?0.0 k/mm3 ()?02/21/2024 02:14 Hct?30.7 % (Low)?02/21/2024 02:14 Hgb?9.5 Gm/dL (Low)?02/21/2024 02:14 Imm Gran?0.6 % ()?02/21/2024 02:14 MCHC?30.9 Gm/dL (Low)?02/21/2024 02:14 MCV?100.7 femtoliters (High)?02/21/2024 02:14 Nucleated RBC (Automated)?0.0 #/100 WBC'S ()?02/21/2024 02:14 Platelet Count?117 k/mm3 (Low)?02/21/2024 02:14 RBC?3.05 m/mm3 (Low)?02/21/2024 02:14 RDW-SD?57.1 femtoliters (High)?02/21/2024:14 ?? CHEM GENERAL Creatinine-Blood?7.97 mg/dL (High)?02/21/2024 02:14 Estimated GFR Creatinine?5 ML/MIN/1.73 M2 ()?02/21/2024 02:14 Phosphorus?5.7 mg/dL (High)?02/21/2024 02:14 Potassium?5.5 mmol/L (High)?02/21/2024 02:14 ?? Note: Critical results are displayed in red. ? Assessment/Plan Chief Complaint: SOB x days, had full dialysis tx today. pt with hx asthma. on O2 for comfort. ?? 68 y/o female with ESRD on HD MWF, T2DM, HTN, asthma, GERD and GABRIELE, nonadherent to CPAP??who presented with shortness of breath, a CXR suggestive of pulmonary edema??and significant hypertension consistent with pulmonary edema from hypertensive crisis. ?? Hypertensive crisis (I16.9) Pulmonary edema ??-Patient's chest x-ray shows increased vascular markings??compared to the prior chest x-ray, ??does appear volume overloaded -Blood pressure is improved after dialysis, continue amlodipine 10 mg, isosorbide -Added hydralazine 50 mg 3 times daily ? Diabetes (E11.9):?? POC glucose chest TID AC and HS Lispro sliding scale ?? ESRD (end stage renal disease) (N18.6) ?Associated with??Anemia of chronic kidney failure (N18.9) Hyperkalemia ?? Nephrology following Status post dialysis today- ? GERD (gastroesophageal reflux disease) (K21.9):??Lansoprazole ?? Asthma (J45.909):?? Not currently in exacerbation Continue breo??(ICS/LABA) PRN albuterol? morbidly obese: Outpatient follow-up with PCP ? VTE Prophylaxis:??Pneumatic compression devices ? Code status: Full Diet: Renal ? Discharge likely tomorrow, will evaluate for home oxygen at discharge ?? Diagnoses 1. ??Hypertensive crisis ??(I16.9) 2. ??Pulmonary edema ??(J81.1) 3. ??Diabetes ??(E11.9) 4. ??ESRD (end stage renal disease) ??(N18.6) 5. ??GERD (gastroesophageal reflux disease) ??(K21.9) 6. ??Anemia of chronic kidney failure ??(N18.9) 7. ??Asthma ??(J45.909) ?? Discharge Planning:? Estimated Discharge Date ? Consult note * Event Display: Consultation Note Authored Date: [id number] CONSULTATION DATE: 02/20/2024 RENAL CONSULTATION NOTE HISTORY OF PRESENT ILLNESS: It was a pleasure to see Idania in consultation. She presented with shortness of breath. I have followed this patient for her end- stage kidney disease, on dialysis on a Thursday, Thursday, Thursday schedule. Her last dialysis was yesterday. She had a full treatment. She hasbeen having some issues with her blood pressure being elevated over the past week. She has a history of hypertension and type 2 diabetes. She has a history of peripheral neuropathy. There is also history of chronic anemia. She has a history of asthma. She has chronic low back pain. She had significant abdominal pain with nausea over many months and ultimately underwent a cholecystectomy with some improvement in those symptoms. She denies any fevers or chills. She has been having some discomfortin her upper mid abdomen right in the first sternum and states that she can feel a small lump thereas well. She has had some intermittent cough. She feels better with the oxygen on. Her chest x-ray a ctually showed no acute abnormality. There were perhaps mild increased interstitial markings, but otherwise it was normal. She has had some blood pressures above 200 systolic. It is now down in the 170s. She is currently having no chest pain and her breathing is better. PHYSICAL EXAMINATION: GENERAL: On brief examination, she otherwise appears well. VITAL SIGNS: Blood pressure 171/69. She is afebrile with heart rate of 70, saturating 100% on 2 liters nasal cannula. CHEST: She has got some scattered rhonchi and no pericardial rub. She does have a bit of tendernessat the inferior aspect of her sternum. ABDOMEN: Otherwise, obese, soft and lax. EXTREMITIES: She has got mild lower extremity edema. Her dialysis access has a thrill and bruit. LABORATORY DATA: White blood cell count 6.7, hemoglobin 10, platelet count 136,000. Potassium 4.6. She has got an elevated proBNP at 27,500. IMPRESSION AND PLAN: Idania has end-stage kidney disease, on a Thursday, Thursday, Thursday schedule for dialysis. She will be due for dialysis tomorrow on Thursday because of the altered holiday schedulefor the New '. She does not need dialysis today. Her volume status appears acceptable. We can try to challenge her and remove more fluid with dialysis tomorrow to help with her blood pressure. In the meantime, I would simply titrate her usual blood pressure medication should her blood pressureremain significantly elevated. Obviously, infectious causes of her shortness of breath and pulmonary symptoms should be pursued. She has had workup for pulmonary embolism with D-dimer evaluation and w as thought that she did not need a CT angiogram. Should she need a CT angiogram, that is fine from a renal standpoint, because she is on dialysis. Otherwise, we will continue to monitor along with you and make any changes with regard to her dialysis schedule accordingly. I thank you for allowing me to participate in this patient's care. Dictated by: Fuad Pino M.D. Signing Clinician: Fuad Pino M.D. Dictated: 02/20/2024 10:01:35 Transcribed: 05:08:30 AM Transcribed by: REFUGIO DocID: [id number] PRELIMINARY REPORT UNLESS MANUALLY/ELECTRONICALLY SIGNED Note * Cailin Kulkarni RN: PERFORM Event Display: Discharge/Transfer Note Hospital Authored Date: [id number] Nursing Discharge Note Entered On: 02/22/2024 12:38 EST Performed On: 02/22/2024 12:37 EST by Cailin Kulkarni RN Nursing Discharge Note 2 Discharge Time : 02/22/2024 14:00 EST Luisa David RN - 02/22/2024 14:00 EST Discharge Level of Care at Discharge : Homehealth/VNA Discharge VNA/Hospice/Home Care(v001) : [facility] Care Patient Left Unit Via : Wheelchair Patient Accompanied Off Unit with : Responsible adult DC Instructions Provided & Signed by Pt : Yes Patient Understands D/C Instructions : Yes Patient Instructions Discharge Signed : Yes Did Pt have Specialty Bed or Wound Vac : No Cailin Kulkarni RN - 02/22/2024 12:37 EST * Lazaro JAUREGUI, Henri D: PERFORM Event Display: Discharge/Transfer Note Hospital Authored Date: [id number] Patient: ??IDANIA BRAN ? Age:??68 Years?Sex:??Female?:??1955?? Patient Information Discharge Location: Primary Care Physician: Lorena Casey MD Admit Date/Time: 02/20/2024 05:14 Discharge Disposition Discharge Disposition: Home: No Services Discharge Diagnosis Hypertensive crisis (I16.9) Pulmonary edema (J81.1) Diabetes (E11.9) ESRD (end stage renal disease) (N18.6) GERD (gastroesophageal reflux disease) (K21.9) Anemia of chronic kidney failure (N18.9) Asthma (J45.909) Shortness of breath ([id number]) _ Discharge Medications Acetaminophen (acetaminophen 325 mg oral tablet)?650?Milligram?By Mouth?Every 4 hours?as needed?Pain , Mild Albuterol (ProAir HFA 90 mcg/inh inhalation aerosol with adapter)?1?puff(s)?Inhalation?Every 6 hours?as needed?for 30?Days?for wheezing Albuterol (albuterol 0.083% inhalation solution)?3?Milliliter?2.5?Milligram?Inhalation?Every 6 hours?as needed?for wheezing?use as needed for wheezing Amlodipine (amLODIPine 10 mg oral tablet)?1?tab(s)?10?Milligram?By Mouth?Daily Aspirin (aspirin 81 mg oral enteric coated tablet)?1?tab(s)?81?Milligram?By Mouth?Daily Atorvastatin (atorvastatin 80 mg oral tablet)?1?tab(s)?80?Milligram?By Mouth?Daily?for 30?Days Cholecalciferol (Vitamin D3 1000 intl units oral tablet)?1?tab(s)?1,000?International Unit?By Mouth?Daily Docusate (Colace sodium 100 mg oral capsule)?1?capsule?100?Milligram?By Mouth?2 times a day?as needed?for constipation Esomeprazole (esomeprazole 20 mg oral enteric coated capsule)?1?capsule?20?Milligram?By Mouth?2 times a day?30- 60 min before eating Fluticasone-Salmeterol (fluticasone-salmeterol 250 mcg-50 mcg inhalation powder)?1?puff(s)?Inhalation?2 times a day?for 30?Days Furosemide (furosemide 80 mg oral tablet)?80?Milligram?By Mouth?2 times a day?for 30?Days?Daily hydrALAZINE (hydrALAZINE 50 mg oral tablet)?1?tab(s)?50?Milligram?By Mouth?3 times a day?for 60?Days?HOLD THE DSOE FOR BP <120/80 ??at home Isosorbide Mononitrate (isosorbide mononitrate 30 mg oral tablet, extended release)?30?Milligram?1?tablet?By Mouth?Daily in AM Loratadine (Claritin 10 mg oral tablet)?10?Milligram?1?tablet?By Mouth?Daily Melatonin (melatonin 5 mg oral tablet)?1?tab(s)?5?Milligram?By Mouth?Daily at bedtime?as needed?for insomnia Montelukast (montelukast 10 mg oral tablet)?10?Milligram?By Mouth?Daily before dinner?for 30?Days Nitroglycerin (nitroglycerin 0.4 mg sublingual tablet)?0.4?Milligram?Sublingual?Every 5minutes?as needed?Chest Pain Ondansetron (Zofran 4 mg oral tablet)?1?tab(s)?4?Milligram?By Mouth?Every 8 hours?as needed?as needed for nausea/vomiting Oxycodone (oxyCODONE 5 mg oral capsule)?1?capsule?5?Milligram?By Mouth?Every 6 hours?as needed?for pain Pantoprazole (pantoprazole 40 mg oral delayed release tablet)?1?tab(s)?40?Milligram?By Mouth?Daily PEG Electrolyte Solution (Golytely - oral powder for reconstitution)?See Instructions?Follow instructions from GI Sevelamer (sevelamer carbonate 800 mg oral tablet)?1?tab(s)?800?Milligram?By Mouth?3 times a day?2?1,600 Sucralfate (sucralfate 1 gm/10 ml oral suspension)?5?Milliliter?0.5?gram?By Mouth?3 times a day before meals and bedtime?for 30?Days ? Medications Started hydrALAZINE (hydrALAZINE 50 mg oral tablet)?1?tab(s)?50?Milligram?By Mouth?3 times a day?for 60?Days?HOLD THE DSOE FOR BP <120/80 ??at home Allergies Allergies ?(Active and Proposed Allergies Only) traMADol? (Severity: Unknown severity, Onset: Unknown) ?Reactions: sob ?Comments: Tolerates oxycodone 03/14/19 ? PCP Follow-Up/Heads-Up 1. patient needed Hydralazine 50 mg TID added to her Antihypertensive regimen Future Appointments 2024 10:00 AM EST ?? With: Julissa JAUREGUI, Jazmin [place] Where: [facility] [address] [place] [address]- Status: Pending Thursday 4:00 PM EDT ?? Where: [facility] Status: Pending Hospital Course Chief Complaint: SOB x days, had full dialysis tx today. pt with hx asthma. on O2 for comfort. ?? 68 y/o female with ESRD on HD MWF, T2DM, HTN, asthma, GERD and GABRIELE, nonadherent to CPAP??who presented with shortness of breath, a CXR suggestive of pulmonary edema??and significant hypertension consistent with pulmonary edema from hypertensive crisis. ?? Hypertensive crisis (I16.9) Pulmonary edema ?-Patient's chest x-ray shows increased vascular markings??compared to the prior chest x-ray, ??does appear volume overloaded -Blood pressure is improved after dialysis, continue amlodipine 10 mg, isosorbide -Added hydralazine 50 mg 3 times daily to her home regimen . with Hydralazine her BP is around 140 systolic ? Diabetes (E11.9):?? POC glucose chest TID AC and HS Lispro sliding scale ?? ESRD (end stage renal disease) (N18.6) ?Associated with??Anemia of chronic kidney failure (N18.9) Hyperkalemia ?? Nephrology following Status post dialysis??02/22/24 ? GERD (gastroesophageal reflux disease) (K21.9):??Lansoprazole ?? Asthma (J45.909):?? Not currently in exacerbation Continue breo??(ICS/LABA) PRN albuterol? morbidly obese: Outpatient follow-up with PCP ? At bedside. ??Denies any nausea vomiting chest pain or shortness of breath appears comfortable multiple family members in the room, discussed postdischarge plan of care. ??Advised patient to follow-up with nephrology??continue to assess for adjusting her blood pressure medications??and also fluid intake Objective Assessment and Plan Discharge Planning:? Vital Signs?? Temperature: 98.6 DegF (02/22/24 05:05:00) Temperature Route: Oral (02/22/24 05:05:00) Pulse Rate: 73 bpm (02/22/24 05:05:00) Respiratory Rate: 18 br/min (02/22/24 05:05:00) Systolic Blood Pressure:??148 mm Hg??High (02/22/24 08:56:00) Systolic Blood Pressure:??148 mm Hg??High (02/22/24 08:56:00) Diastolic Blood Pressure: 74 mm Hg (02/22/24 08:56:00) Diastolic Blood Pressure: 74 mm Hg (02/22/24 08:56:00) Blood pressure sites: Arm, right (02/22/24 05:05:00) Mean Arterial Pressure: 97 mm Hg (02/22/24 05:05:00) Pulse Pressure: 64 mm Hg (02/22/24 05:05:00) Oxygen Saturation: 96 % (02/22/24 05:05:00) Mode of Delivery (Oxygen): Room air (02/22/24 05:05:00) Early Warning Score: 3 (02/22/24 08:58:43) ? . Physical Exam General: Is appears comfortable in no distress??morbidly obese HEENT: ??mucous mucous membranes appear wet, PERRLA Cardiovascular: S1-S2 heard no murmurs appreciated Respiratory: CTA without any wheezing or crackles anteriorly GI: Abdomen nontender to palpation, no distention, no obvious hepatosplenomegaly Neuro: AOx3 plus date of , able to raise all extremities on commands Psych: Appears calm without any agitation` ?? Consultants Nephrology Pending Results High??Sensitivity??Troponin T ordered on 02/20/2024 Follow-Up Appointments Added Follow Up ?Time Frame ?Comments Jacinto JAUREGUI, Lorena Lua Patient Instructions 1. ??You are being discharged on another new medication for your blood pressure and??called as hydralazine 50 mg??3 times every day. ??Check your blood pressure in the first week before taking the medication if your blood pressure remains less than 120 / 70??you can skip the dose and maintain a log??of your readings??so that you can discuss with your kidney doctor as to what would be an appropriate dose??for you to remain??on??for long-term Post Discharge Care Diet: ??Renal diet ?? Activity: ??Ambulate With Assistance 3 times a day ?? Discharge ?02/22/24 12:07:00 EST ?Order Comment:?? Home Health Face to Face ^HomeHealthFTF Results Discharge Labs BLOOD COUNT & DIFF WBC 5.2 k/mm3 ()?? 02/21/2024 02:14 RBC 3.05 m/mm3 (Low)?? 02/21/2024 02:14 Hgb 9.5 Gm/dL (Low)?? 02/21/2024 02:14 Hct 30.7 % (Low)?? 02/21/2024 02:14 MCV 100.7 femtoliters (High)?? 02/21/2024 02:14 MCH 31.1 pg ()?? 02/21/2024 02:14 MCHC 30.9 Gm/dL (Low)?? 02/21/2024 02:14 Platelet Count 117 k/mm3 (Low)?? 02/21/2024 02:14 RDW-SD 57.1 femtoliters (High)?? 02/21/2024 02:14 MPV 10.4 femtoliters ()?? 02/21/2024 02:14 Nucleated RBC (Automated) 0.0 #/100 WBC'S ()?? 02/21/2024 02:14 Abs. NRBC 0.0 k/mm3 ()?? 02/21/2024 02:14 Abs. Neut 3.4 k/mm3 ()?? 02/21/2024 02:14 Abs. Lymph 1.0 k/mm3 ()?? 02/21/2024 02:14 Abs. [place] 0.4 k/mm3 ()?? 02/21/2024 02:14 Abs. Eo 0.3 k/mm3 ()?? 02/21/2024 02:14 Abs. Baso 0.0 k/mm3 ()?? 02/21/2024 02:14 Neut % 65.5 % ()?? 02/21/2024 02:14 Lymph % 19.4 % ()?? 02/21/2024 02:14 [place] % 8.3 % ()?? 02/21/2024 02:14 Eos % 5.4 % ()?? 02/21/2024 02:14 Baso % 0.8 % ()?? 02/21/2024 02:14 Imm Gran 0.6 % ()?? 02/21/2024 02:14 Abs. Imm Gran 0.0 k/mm3 ()?? 02/21/2024 02:14 ?? CARDIAC Nt-Probnp 93597 pg/mL (High)?? 02/19/2024 23:27 High Sensitivity Troponin (HSTnT) 49 ng/L (High)?? 02/20/2024 04:40 ?? CHEM GENERAL Sodium 141 mmol/L ()?? 02/21/2024 02:14 Potassium 5.5 mmol/L (High)?? 02/21/2024 02:14 Chloride 102 mmol/L ()?? 02/21/2024 02:14 Bicarbonate Level 29 mmol/L ()?? 02/21/2024 02:14 Anion Gap 10 ()?? 02/21/2024 02:14 Glucose Level 162 mg/dL (High)?? 02/19/2024 23:27 Glucose, POC 86 mg/dL ()?? 02/22/2024 08:05 BUN 24 mg/dL (High)?? 02/19/2024 23:27 Creatinine-Blood 7.97 mg/dL (High)?? 02/21/2024 02:14 Estimated GFR Creatinine 5 ML/MIN/1.73 M2 ()?? 02/21/2024 02:14 Calcium 10.0 mg/dL ()?? 02/19/2024 23:27 Phosphorus 5.7 mg/dL (High)?? 02/21/2024 02:14 Magnesium 2.3 mg/dL ()?? 02/21/2024 02:14 AST (SGOT) 19 units/L ()?? 02/21/2024 02:14 ALT (SGPT) 17 units/L ()?? 02/21/2024 02:14 Bilirubin, Total 0.3 mg/dL ()?? 02/21/2024 02:14 ?? COAG D-Dimer 0.83 mg/L FEU ()?? 02/20/2024 02:41 ? HEME OTHER Hold Blue Top SPECIMEN DISCARDED AFTER 4 HOURS. ()?? 02/20/2024 04:40 ? URINE OTHER Est Creatinine Clearance 5.41 mL/min ()?? 02/21/2024 03:33 ? VIROLOGY Influenza A PCR NEGATIVE ()?? 02/19/2024 23:30 Influenza B PCR NEGATIVE ()?? 02/19/2024 23:30 RSV PCR NEGATIVE ()?? 02/19/2024 23:30 COVID-19 PCR Specimen Source NASAL ()?? 02/19/2024 23:30 COVID-19 PCR Result NEGATIVE ()?? 02/19/2024 23:30 ? Image ?XR Chest 2 Views Frontal and Lat??02/19/2024 19:15 by Erik Rosales ?IMPRESSION: No acute abnormality. ?? Consult ?Consultation??02/20/2024 10:01 by Fuad Pino MD ? 40 ??minutes spent on discharge * Luisa David RN: PERFORM Event Display: Patient Education/Instruction Authored Date: Inpatient Adult Discharge Instructions. [address] [address] Name: IDANIA BRAN : 1955?? Visit: 02/20/2024 05:14?? Current Date: 02/22/2024 12:22 ?? Account: [id number]?? Inpatient Adult Discharge Instructions We would like to thank you for allowing us to assist you with your healthcare needs. The following includes patient education materials and information regarding your injury/illness. Our entire staffstrives to provide an excellent experience for our patients and their families. PLEASE ENSURE YOU FOLLOW-UP PER THE INSTRUCTIONS BELOW! ?? YOUR OPINION IS IMPORTANT TO US! Please complete the survey you may receive by mail or email. Your feedback will be used to make improvements to the healthcare experiences of our patients and their families. Surveys are administered by [employer] ?? If further treatment with your primary care physician or another doctor is recommended, it is important for you to keep the appointment. Call your primary care physician or return to the Emergency Department immediately if your condition worsens, fails to improve, or new symptoms develop. If you need to find a doctor, you can call [facility] for a referral at [phone] or toll free at [phone] or log in to [email or web address].. ?? [facility], in keeping with [facility] guidance, no longer requires face masks for staff, patientsor visitors in most situations. Similiar to time spent indoors at other locations, there is the chance that you were exposed to repiratory viruses during your time with us (such as flu or COVID-19). If you develop symptoms concerning for a viral respiratory infection, please seek testing (and treatment if indicated) from your medical provider or home test kit. ?? You can view and manage your care through the patient portal or by using a health care jack of your choosing. [employer] is a website that allows you to securely view your medical information including your hospital discharge summary, office visit summaries, medications and follow-up visits. You can also request appointments, renew medications, and request access to your medical information using a health care jack of your choosing, or just ask a question. You can enroll at [email or web address] or register during your next office visit. You have been discharged from [facility], Patient Care Unit: M6??. If you have any questions regarding these instructions, including results of studies pending, afteryou leave, please call us and we will be happy to assist you 15/09. [facility] Your Care Team Attending Physician Henri Willis MD?? Consulting Providers Henri Willis MD?? Discharging Providers Henri Willis MD Reason for Your Visit SOB x days, had full dialysis tx today. pt with hx asthma. on O2 for comfort.?? Your Diagnosis Hypertensive crisis GERD (gastroesophageal reflux disease) Anemia of chronic kidney failure Asthma Shortness of breath Tests Performed Below is a partial list of the tests performed during your hospitalization. You may have had other tests and procedures not included in this list. Please discuss all test results with your provider. ALT AST B Type Natriuretic Peptide (NT-proBNP) Basic Metabolic Panel Bilirubin Total CBC w/ Differential COVID-19, RSV, and Flu A/B, Rapid PCR Creatinine D Dimer Electrolytes GLUCOSE POC High??Sensitivity??Troponin T HOLD BLUE TUBE Magnesium Level Phosphorus Level XR Chest 2 Views Frontal and Lat ALT?? AST?? B Type Natriuretic Peptide (NT-proBNP)?? Basic Metabolic Panel?? Bilirubin Total?? CBC w/ Differential?? COVID-19, RSV, and Flu A/B, Rapid PCR?? Creatinine?? D Dimer?? Electrolytes?? Glucose POC?? High??Sensitivity??Troponin T (Troponin T, High Sensitivity)?? Hold Blue Top Tube (HOLD BLUE TUBE)?? Magnesium Level?? Phosphorus Level?? Chest 2 Views Frontal and Lat (XR Chest 2 Views Frontal and Lat)?? Primary Care Provider Lorena Casey MD? Advance Directive Health Care Proxy on File Yes - Health Care Proxy Discharge Vitals Temperature: 98.6 DegF Height: 159 cm Pulse Rate: 73 bpm Weight: 110.7 kg Respiratory Rate: 18 br/min Body Mass Index:??45.49 kg/m2??Critical Systolic Blood Pressure:??148 mm Hg??High Body surface area: 2.25 Systolic Blood Pressure:??148 mm Hg??High ?? Diastolic Blood Pressure: 74 mm Hg ?? Diastolic Blood Pressure: 74 mm Hg ?? Oxygen Saturation: 96 % ?? Studies Pending All studies ordered during this hospital stay have been completed unless listed below. Please discuss all pending results with your provider listed above in these instructions. ?? High??Sensitivity??Troponin T (Troponin T, High Sensitivity)?? What to do next Instructions From Your Doctor 1. ??You are being discharged on another new medication for your blood pressure and??called as hydralazine 50 mg??3 times every day. ??Check your blood pressure in the first week before taking the medication if your blood pressure remains less than 120 / 70??you can skip the dose and maintain a log??of your readings??so that you can discuss with your kidney doctor as to what would be an appropriate dose??for you to remain??on??for long-term ?? Orders??:Renal diet :Ambulate ??With Assistance ??3 times a day? 02/22/24 12:07:00 EST?? Scheduled Follow-Up Appointments 2024 10:00 AM EST ?? With: Julissa JAUREGUI, J[place]min [place] Where: [facility] REFRACTORY SPECIALIST [address] [place] [address]- Status: Pending Thursday 4:00 PM EDT ?? Where: [facility] Status: Pending You Need to Schedule the Following Appointments Follow Up with??Jacinto JAUREGUI, Lorena Lua Where: ?? Discharge Medications IDANIA BRAN :1955 Visit Date:02/20/2024 Medications: Please continue your medications until treatment is completed or stopped by your provider. Medications not listed below should be discontinued. Discuss any questions related to medications with your provider. What How Much When Why Instructions Next Dose New hydrALAZINE (hydrALAZINE 50 mg oral tablet) 1 tab(s) Oral 3 times a day Duration: 60 Days HOLD THE DSOE FOR BP <120/ 80 ??at home ?? Pickup at [facility] 3 Today 02/21 in afternoon Unchanged Acetaminophen (acetaminophen 325 mg oral tablet) 650 Milligram Oral Every 4 hours as needed for Pain , Mild As needed Unchanged Albuterol (albuterol 0.083% inhalation solution) 3 Milliliter Inhalation Every 6 hours as needed for for wheezing use as needed for wheezing ?? As needed Unchanged Albuterol (ProAir HFA 90 mcg/ inh inhalation aerosol with adapter) 1 puff(s) Inhalation Every 6 hours as needed for for wheezing Duration: 30 Days As needed Unchanged Amlodipine (amLODIPine 10 mg oral tablet) 1 tab(s) Oral Daily Tomorrow 02/22 in a.m. Unchanged Aspirin (aspirin 81 mg oral enteric coated tablet) 1 tab(s) Oral Daily Tomorrow 02/22 in a.m. Unchanged Atorvastatin (atorvastatin 80 mg oral tablet) 1 tab(s) Oral Daily Duration: 30 Days Tomorrow 02/22 in a.m. Unchanged Cholecalciferol (Vitamin D3 1000 intl units oral tablet) 1 tab(s) Oral Daily Tomorrow 02/22 in a.m. Unchanged Docusate (Colace sodium 100 mg oral capsule) 1 capsule Oral Twice a day as needed for for constipation As needed Unchanged Esomeprazole (esomeprazole 20 mg oral enteric coated capsule) 1 capsule Oral Twice a day Abdominal pain GERD (gastroesophageal reflux disease) 30-60 min before eating ?? Today 02/21 in evening Unchanged Fluticasone-Salmeterol (fluticasone-salmeterol 250 mcg-50 mcg inhalation powder) 1 puff(s) Inhalation Twice a day Duration: 30 Days Today 02/21 in evening Unchanged Furosemide (furosemide 80 mg oral tablet) 80 Milligram Oral Daily Duration: 30 Days Tomorrow 02/22 in a.m. Unchanged Isosorbide Mononitrate (isosorbide mononitrate 30 mg oral tablet, extended release) 1 tab(s) Oral Daily in the morning Tomorrow 02/22 in a.m. Unchanged Loratadine (Claritin 10 mg oral tablet) 1 tab(s) Oral Daily Tomorrow 02/22 in a.m. Unchanged Melatonin (melatonin 5 mg oral tablet) 1 tab(s) Oral Daily at Bedtime as needed for for insomnia As needed Unchanged Montelukast (montelukast 10 mg oral tablet) 10 Milligram Oral Daily before dinner Duration: 30 Days Today before dinner Unchanged Nitroglycerin (nitroglycerin 0.4 mg sublingual tablet) 0.4 Milligram Sublingual Every 5 minutes as needed for Chest Pain As needed Unchanged Ondansetron (Zofran 4 mg oral tablet) 1 tab(s) Oral Every 8 hours as needed for as needed for nausea/vomiting As needed Unchanged Oxycodone (oxyCODONE 5 mg oral capsule) 1 capsule Oral Every 6 hours as needed for for pain As needed Unchanged Pantoprazole (pantoprazole 40 mg oral delayed release tablet) 1 tab(s) Oral Daily Tomorrow 02/22 in a.m. Unchanged PEG Electrolyte Solution (Golytely - oral powder for reconstitution) See instructions Abdominal pain GERD (gastroesophageal reflux disease) Follow instructions from GI ?? Unchanged Sevelamer (sevelamer carbonate 800 mg oral tablet) 2 tab(s) Oral 3 times a day Today before dinner Unchanged Sucralfate (sucralfate 1 gm/ 10 ml oral suspension) 5 Milliliter Oral 3 times a day before meals and bedtime Abdominal pain GERD (gastroesophageal reflux disease) Duration: 30 Days Today before dinner Pharmacy Information [facility]: [address] [place], [place] [id number] [phone] Prescription Given During Visit hydrALAZINE (hydrALAZINE 50 mg oral tablet) - 1 tablet = 50 mg, By Mouth, 3 times a day, # 180 tablet, 0 Refills, HOLD THE DSOE FOR BP <120/80 ??at home, [facility] [address], [address] [place] [phone]?? Laboratory Results Below is a partial list of the most recent Laboratory test results done prior to this discharge. You may have had other tests and procedures not included in this list. Please discuss all test resultswith your provider. Est Creatinine Clearance - 5.41 mL/min (02/21/2024) ALT (02/21/2024) ???ALT (SGPT) - 17 units/L AST (02/21/2024) ???AST (SGOT) - 19 units/L B Type Natriuretic Peptide (NT-proBNP) (02/19/2024) ???Nt-Probnp - 92532 pg/mL Basic Metabolic Panel (02/19/2024) ???Sodium - 139 mmol/L???Potassium - 4.6 mmol/L???Chloride - 99 mmol/L???Bicarbonate Level - 28 mmol/L???Anion Gap - 12???Glucose Level - 162 mg/dL???BUN - 24 mg/dL???Creatinine-Blood - 5.35 mg/dL???Estimated GFR Creatinine - 8 ML/MIN/1.73 M2???Calcium - 10.0 mg/dL Bilirubin Total (02/21/2024) ???Bilirubin, Total - 0.3 mg/dL CBC w/ Differential (02/21/2024) ???WBC - 5.2 k/mm3???RBC - 3.05 m/mm3???Hgb - 9.5 Gm/dL???Hct - 30.7 %???MCV - 100.7 femtoliters???MCH - 31.1 pg???MCHC - 30.9 Gm/dL???Platelet Count - 117 k/mm3???RDW-SD - 57.1 femtoliters???MPV - 10.4 femtoliters???Nucleated RBC (Automated) - 0.0 #/100 WBC'S???Abs. NRBC - 0.0 k/mm3???Abs. Neut - 3.4 k/mm3???Abs. Lymph - 1.0 k/mm3???Abs. [place] - 0.4 k/mm3???Abs. Eo - 0.3 k/mm3???Abs. Baso - 0.0 k/mm3???Neut % - 65.5 %???Lymph % - 19.4 %???[place] % - 8.3 %???Eos % - 5.4 %???Baso % - 0.8 %???Imm Gran - 0.6 %???Abs. Imm Gran - 0.0 k/mm3 COVID-19, RSV, and Flu A/B, Rapid PCR (02/19/2024) ???Influenza A PCR - NEGATIVE???Influenza B PCR - NEGATIVE???RSV PCR - NEGATIVE???COVID-19 PCR Specimen Source - NASAL???COVID-19 PCR Result - NEGATIVE Creatinine (02/21/2024) ???Creatinine-Blood - 7.97 mg/dL???Estimated GFR Creatinine - 5 ML/MIN/1.73 M2 D Dimer (02/20/2024) ???D-Dimer - 0.83 mg/L FEU Electrolytes (02/21/2024) ???Sodium - 141 mmol/L???Potassium - 5.5 mmol/L???Chloride - 102 mmol/L???Bicarbonate Level - 29 mmol/L???Anion Gap - 10 GLUCOSE POC (02/22/2024) ???Glucose, POC - 106 mg/dL High??Sensitivity??Troponin T (02/19/2024) ???High Sensitivity Troponin (HSTnT) - HEMOLYZED HOLD BLUE TUBE (02/20/2024) ???Hold Blue Top - SPECIMEN DISCARDED AFTER 4 HOURS. Magnesium Level (02/21/2024) ???Magnesium - 2.3 mg/dL Phosphorus Level (02/21/2024) ???Phosphorus - 5.7 mg/dL You will be contacted within 72 hours with your results. Allergies (NKA means No Known Allergies) traMADol??(sob) Problems Active Problems??(18) Anemia?? Asthma?? Chronic low back pain?? Diabetes mellitus?? Diabetic neuropathy?? End stage renal disease, on dialysis M, W, F?? History of postmenopausal bleeding?? Hypertension (HTN)?? Last Pap smear 02/09/24 ASCUS with negative HPV. [ ] repeat cotesting 3 years?? Limited mobility - uses a walker?? Menopausal state (approximately age 36 per patient)?? Monoclonal gammopathy?? Non-Citizen Of [place] speaking patient - market risk specialist required?? Obstructive sleep apnea (GABRIELE)?? Osteoarthritis?? Severe obesity?? Thickened endometrium?? Umbilical hernia?? Education Materials Below is the list of Educational Leaflet Providered with your Discharge Instructions. Valuables and Belongings I fully understand and agree that [facility] accepts no responsibility for all my personal property including clothing, toilet articles, radios, jewelry, dentures, hearing aids, rings, money, or any other property that is in my possession or is brought to me after admission. I understand certain valuables may be placed in a hospital safe for a short period of time. I understand that the hospital is not liable for loss or damage due to accident, fire, or other natural occurrence while said property is in the safe. I accept full responsibility for any personal property that I keep with me, and will not hold the hospital responsible in case of loss or disappearance. I acknowledge that i have been encouraged to send valuables and belongings home. ?? No Valuables/Belongings: No valuables/belongings present Review of Valuable and Belonging List: With patient Date for Pt to Sign Valuables/Belongings: 02/20/24 04:56:00 ?? Other Discharge Information ? Case Management Discharge Plan?? Discharge Plan?? Discharge Agency Information?? Discharge Level of Care at Discharge: Homehealth/VNA Name of Agency #1: [facility] Discharge Rx Program: Discharge Prescription Program Service Categories #1: Residential Discharge Rx Program: Discharge Prescription Program Service Comments #1: A return referral has been made to [facility] to resume nursing services at home.??The agency will contact you to set up a visit. ??Please call them if you do not hear from them within 24 hours of discharge. Discharge VNA/Hospice/Home Care: [facility] ? Pulmonary Rehab Status?? Pulmonary Rehab Discharge Status?? Respiratory Rate: 18 br/min ? Common Emergency Awareness Tips IS IT A STROKE? Act FAST and Check for these signs: FACE Does the face look uneven? ARM Does one arm drift down? SPEECH Does their speech sound strange? TIME Call at any sign of stroke ?? Heart Attack Signs Chest discomfort: Most heart attacks involve discomfort in the center of the chest and lasts more than a few minutes, or goes away and comes back. It can feel like uncomfortable pressure, squeezing, fullness or pain. Discomfort in upper body: Symptoms can include pain or discomfort in one or both arms, back, neck, jaw or stomach. Shortness of breath: With or without discomfort. Other signs: Breaking out in a cold sweat, nausea, or lightheaded. Remember, MINUTES DO MATTER. If you experience any of these heart attack warning signs, call to get immediate medical attention! ?? Smoking can increase your chances of developing chronic health problems and can cause harmful effects to other family members in your house. If you smoke, you are strongly encouraged to quit. Please call [facility] at [phone] or [phone] ([phone]) or log in to [email or web address] for referrals to smoking cessation programs. ?? 949 Suicide & Crisis Lifeline is available 15/09 if you or someone you know needs to find a reason to keep living. By calling 396 you'll be connected to a skilled, trained counselor at a crisis center in your area. INPATIENT DISCHARGE INSTRUCTIONS SIGNATURE PAGE IDANIA BRAN Location:[facility] Registration Date and Time:02/20/2024 05:14 EST Primary Care Physician: Jacinto JAUREGUI, Lorena Lua, Attending Physician: Lazaro JAUREGUI, Henri Love, I IDANIA BRAN, have received the above patient education materials/instructions and have verbalized understanding. If ambulance or transport services are being used I further acknowledge being given a choice of service. ?? If you need to contact me, please call me at this number: . Patient/Dish Machine Operator Name: Patient/Dish Machine Operator Signature: Relationship to Patient: Witness Name/Signature: Date: Patient Care team information Care Team Personnel Name: Jim DUBON, Martha Bach Position: Reference Physician Member Role: Primary Care Nurse Address: [address] [place], [place] - Telecom: Name: Lorena Casey MD Position: [facility] Physician - Primary Care Member Role: PCP Address: [address] [place], [place] - Telecom: Name: Ruthie Mosqueda Position: [facility] Outreach Member Role: Lifetime Consulting Physician Name: Rosaura Sy MD Position: [facility] Outreach Member Role: Lifetime Consulting Physician Name: Shahnaz Rey RN Position: [facility] RN Member Role: Primary Care Nurse Name: Garland Jaeger DO Position: [facility] Renal MD Member Role: Lifetime Consulting Physician Address: [address] [facility] [facility] [place], [place] - Telecom: Name: Clem Bright NP Position: [facility] PCO Associate Professional Member Role: Primary Care Nurse Address: [address] [facility] [address] floor [place], [place] - Telecom: Name: Surekha Yun RN Position: [facility] RN Member Role: Primary Care Nurse Name: Simran Dupont RN Position: [facility] SN RN Member Role: Primary Care Nurse Care Team Related Persons Name: LORRAINE YADAV Name: GLEN ORTIZ Name: JESUS BRAN Insurance Providers Guarantor name: IDANIA BRAN Health Plan Information #: 1 Payer: NA Member Number: [id number] Policy Number: NA Group Number: [facility] Health Plan Information #: 2 Payer: NA Member Number: [id number] Policy Number: [id number] Group Number: NA
--- OUTSIDE RECORDS SUMMARY | 2024-02-23 11:52 | XMS_ITS | Continuity of Care Document ---
Author Organization [facility] [employer] Address [address] [place] [address]- Care Team Providers Care Dispatcher Chief Coal Slurry Name Role Phone Not on Staff, PCP Primary Care Physician Unavail able [place] [facility] [place]): [place]24 - 02/04/24 [facility] [address] [place], [place] [address] Attending Physician: Julissa JAUREGUI, [place] Referring Physician: Not on Staff, Referring MD Encounter Type: Office Visit Allergies, Adverse Reactions, Alerts Substance Criticality Severity [...] 09/17/2010 4Result Comment: [11/27/2014] Sterile Diluent Lot# [id number]; Exp: 03/28/2017 5Admin Note: VIS GIVEN 11/28/08 Problem List Condition Confirmation Course Effective Dates Status H ealth Status Informant Anemia Confirmed Active Asthma Confirmed Active Chronic low back pain Confirmed Active Diabetes mellitus Confirmed Active Diabetic neuropathy Confirmed Active End stage renal disease, on dialysis M, W, F Confirmed Active Thickened endometrium Confirmed Active Hypertension (HTN) Confirmed Active Non-Welsh speaking patient - legal writing professor 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 Confirmed Active Menopausal state (approximately age 36 per patient) Confirmed Active Monoclonal gammopathy Confirmed Active Obstructive sleep apnea (GABRIELE) Confirmed Active Osteoarthritis Confirmed Active History of postmenopausal bleeding Confirmed Active Limited mobility - uses a walker Confirmed Active Last Pap smear 08/11/18 negative with negative HPV Confirmed Active Severe obesity Confirmed Active Umbilical hernia Confirmed Active Procedures Procedure Date Related Diagnosis Body Site Status Laparoscopic cholecystectomy 01/22/24 Completed Laparoscopic sleeve gastrectomy 10/24/14 Completed Colonoscopy 11/11/11 Completed Carpal tunnel release, bilateral 1983 Completed bilateral tubal l igation via mini laparotomy 1 02/20/78 Completed Peripheral vascular shunt or bypass, left arm Completed 1Done same day as her youngest child was born Vital Signs Most recent to oldest [Reference Range]: 1 Height 158 cm (01/28/24 3:16 PM) Weight 114.76 kg (01/28/24 3:16 PM) Pulse Rate [55-90 bpm] 79 bpm (01/28/24 3:16 PM) Body Mass Index [18.5-24.99 kg/m2] 45.97 kg/m2 *>HHI* (01/28/24 3:16 PM) Blood Pressure [90-138/55-84 mm Hg] 170/ 63mm Hg *H* (01/28/24 3:16 PM) Blood pressure sites Arm, right (01/28/24 3:16 PM) Weight Obtained Via Standing scale (01/28/24 3:16 PM) Social History Social History Type Response Smoking Status Former smoker, quit more than 30 days ago entered on: 04/02/18 Sex Sex Representation Female (finding) History and physical note * Julissa JAUREGUI, [place]: PERFORM, SIGN, VERIFY Event Display: History and Physical Hospital Authored Date: [id number] Patient: CAMERON BRAN Age: 68 years Sex: Female : 1955 Associated Diagnoses: None Author: Julissa JAUREGUI, [place] IDENTIFICATION AND CHIEF COMPLAINT: This is a 68 year-old female here today for preoperative History and Physical (H&P) for a planned exam under anesthesia (EUA), Papanicolaou (Pap) smear, hysteroscopy, dilation and curettage. Possible polypectomy. Possible myomectomy. The indication for surgery is thickened endometrium seen on imaging, incompatible with subsequent biopsy that showed atrophy. Surgery is scheduled for 02/09/2024. HISTORY OF PRESENT ILLNESS: The patient speaks??Syrian - I had a [employer] video??website optimization strategist (Jessika, #[id number]) for the entire visit. She is not having vaginal bleeding currently, the last time was 7 to 8 months ago. The first time I came here was for vaginal discharge, it was bothering me a lot, but I never knew the results untilnow you are telling me. She is on dialysis Thursday, Thursday, Thursday. Her surgery is scheduled for Thursday afternoon. Last Pap smear 08/11/18 negative with negative HPV Endometrial biopsy 08/06/2023: Scant of strips of surface endometrium that may in appropriate clinical setting represent atrophy. Thyroid stimulating hormone (TSH) level on 04/25/2020 was 2.48 mIU/mL (0.40-4.00) Urine test is not necessary because she is status post tubal sterilization and because she is post-menopausal. Pelvic ultrasound 07/23/2023 showed: UTERUS: Size: 7.1 x 3.4 x 5.0 cm, volume 62.9 cc. Endometrial thickness: 1.0 cm. Mildly heterogeneous with scattered anechoic cystic areas throughoutthe endometrial canal. Mild internal vascular flow with diminutive waveforms. Morphology: Normal configuration. Heterogeneous uterus with scattered echogenic areas foci suggestive of vascular calcification. RIGHT OVARY: Not visualized. LEFT OVARY: Not visualized. ADNEXA: Normal. No adnexal masses or fluid collections. IMPRESSION: Heterogeneously thickened endometrial stripe measuring 1.0 cm with cystic changes. Findings may represent hyperplasia or neoplasia. Consider tissue sampling. COMPUTERIZED TOMOGRAPHY (CT) SCAN: Performed 11/17/2023 Reproductive organs: Unremarkable. ALLERGIES: traMADol (sob) MEDICATIONS: Acetaminophen: 650 mg, By Mouth, Every 4 hours, PRN (Pain , Mild) Albuterol: 1 puffs, Inhalation, Every 6 hours, PRN (for wheezing) Albuterol: 2.5 mg = 3 mL, Inhalation, Every 6 hours, PRN (for wheezing), use as needed for wheezing Amlodipine: 10 mg = 1 tablet, By Mouth, Daily Aspirin: 81 mg = 1 tablet, By Mouth, Daily Atorvastatin: 80 mg = 1 tablet, By Mouth, Daily Cholecalciferol: 1,000 International_Units = 1 tablet, By Mouth, Daily Docusate: 100 mg = 1 capsule, By Mouth, 2 times a day, PRN (for constipation) Esomeprazole: 20 mg = 1 capsule, By Mouth, 2 times a day, 30-60 min before eating Fluticasone-Salmeterol: 1 puffs, Inhalation, 2 times a day Furosemide: 80 mg, By Mouth, Daily Isosorbide Mononitrate: 30 mg = 1 tablet, By Mouth, Daily in AM Loratadine: 10 mg = 1 tablet, By Mouth, Daily Melatonin: 5 mg = 1 tablet, By Mouth, Daily at bedtime, PRN (for insomnia) Montelukast: 10 mg, By Mouth, Daily before dinner Nitroglycerin: 0.4 mg, Sublingual, Every 5 minutes, PRN (Chest Pain) Ondansetron: 4 mg = 1 tablet, By Mouth, Every 8 hours, PRN (as needed for nausea/vomiting) Oxycodone: 5 mg = 1 capsule, By Mouth, Every 6 hours, PRN (for pain) PEG Electrolyte Solution: See Instructions, Follow instructions from GI Sevelamer: 1,600 mg = 2 tablet, By Mouth, 3 times a day Sucralfate: 0.5 Gm = 5 mL, By Mouth, 3 times a day before meals and bedtime PROBLEM LIST/MEDICAL HISTORY: Anemia Asthma Chronic low back pain Diabetes mellitus Diabetic neuropathy End stage renal disease, on dialysis M, W, F History of postmenopausal bleeding Hypertension (HTN) Limited mobility - uses a walker Menopausal state (approximately age 36 per patient) Monoclonal gammopathy Non-Welsh speaking patient - legal writing professor required Obstructive sleep apnea (GABRIELE) Osteoarthritis Severe obesity Thickened endometrium Umbilical hernia OBSTETRICAL HISTORY: History (4,0,0,4) # 1 Baby 1 Outcome Date: 10/17/1971 Outcome or Result: Vaginal Gest Age: Fullterm Outcome: Live Sex: Male Child's Name: Lorraine Comment: Note - both her oldest and youngest child are named Lorraine # 2 Baby 1 Outcome Date: 05/02/1973 Outcome or Result: Vaginal Gest Age: Fullterm Outcome: Live Sex: Male Child's Name: Singh # 3 Baby 1 Outcome Date: 06/14/1975 Outcome or Result: Vaginal Gest Age: Fullterm Outcome: Live Sex: Male Child's Name: Alan # 4 Baby 1 Outcome Date: 02/20/1977 Outcome or Result: Vaginal Gest Age: Fullterm Outcome: Live Sex: Male Child's Name: Lorraine Comment: Note - both her oldest and youngest child are named Lorraine GYNECOLOGICAL HISTORY: Last Pap smear 08/11/18 negative with negative HPV Last menstrual period (LMP): Not applicable (N/A), menopausal SURGICAL HISTORY: Laparoscopic cholecystectomy: 01/22/24 Laparoscopic sleeve gastrectomy: 10/24/14 Colonoscopy: 11/11/11 Carpal tunnel release, bilateral: 1982 bilateral tubal ligation via mini laparotomy: 02/20/78 Peripheral vascular shunt or bypass, left arm SOCIAL HISTORY: Alcohol Details: Use: Current. Frequency: 1-2 times per year. Employment/School Details: Status: Unemployed. Exercise Details: Regular exercise: No. Home/Environment Details: Living situation: Home/Independent. Nutrition/Health Details: Diet: Regular. Sexual Details: Sexually involved in last 6 months: No. Gender identity: Female. Ever been sexually involved? Yes. Gender of partner(s): Male. Substance Abuse Details: Use: Never. Tobacco Details: Use: Former smoker, quit more than 30 days ago. Details: Former smoker, Type: Cigarettes. Started at age: 17 Years. Stopped at age: 17 Years. Previous treatment: None. FAMILY HISTORY: Mother: Diabetes mellitus type II Sister: Cancer of colon PHYSICAL EXAM: VITALS: Temperature No result Systolic Blood Pressure 170 (15:17) Diastolic Blood Pressure 63 (15:17) Pulse 79 (15:17) SpO2 No result Respiratory Rate No result WEIGHT: 253 pounds GENERAL IMPRESSION: Morbidly obese. Uses a walker. Very slow movements to get up to standing position after the visit. No acute distress (NAD). HEENT: Dentition - edentulous - has upper and lower complete dentures. The patient has full range of motion of her head and neck. BACK: Mild dorsocervical fat pad ( buffalo hump ) upper back. EXTREMITIES: Dialysis fistula left arm THYROID: Normal in size, no masses or tenderness LUNGS: Clear to auscultation bilaterally HEART: Regular rate and rhythm, no murmurs ABDOMEN: Well healed laparoscopy scars from recent laparoscopic cholecystectomy. Soft, nontender, nondistended. No rebound or guarding ASSESMENT AND PLAN: This is a 68 year-old female here today for preoperative History and Physical (H&P) for a planned exam under anesthesia (EUA), Papanicolaou (Pap) smear, hysteroscopy, dilation and curettage. Possible polypectomy. Possible myomectomy. The indication for surgery is thickened endometrium seen on imaging, incompatible with subsequent biopsy that showed atrophy. Surgery is scheduled for 02/09/2024. We discussed risks/benefits/alternatives of the surgery. She understands that there are no guarantees of the results of surgery. She wants to proceed. We discussed that unforeseen conditions may arise and she may require additional or different treatment from what we have described on the consent form. She states she trusts me to make decisions on her behalf. She has no objections to a blood transfusion if it is deemed to be necessary. We discussed the pre- and post-operative instructions and expectations as well as the post-operative warning signs which should trigger her to call the office or seek emergency medical attention. Shewas instructed to remain NPO after midnight on the day of surgery. She was instructed to remove alljewelry, piercings, or other items made of metal, and to leave them at home. She was given chlorhexidine scrub brushes and instructed how to use them the night before surgery. We reviewed her medication list and discussed which medications she should take on the day of surgery, and which ones not to take. We discussed pain management after surgery. We discussed driving, and that if opioids are giv en, she should not drive while under the influence of opioids. She also should not drive until she is recovered sufficiently that she could respond quickly in the event of an emergency. We discussed that I recommend to hold off on any immersion in water (baths, swimming, etc.) for at least 6 weeks after surgery to reduce the risk of wound infection. We discussed indications for coming to the [facility] ([facility]) located on the ground floor of the [facility]. We discussed that resident physicians, medical students, and students of allied health professions will be part of the care team under the supervision of a clinician-educator. The patient states recognition of this. We discussed that pelvic examination under anesthesia (EUA) is an important part of the comprehensive physical exam and is typically done before gynecological surgeries in order to ensure that the surgical plan is appropriate prior to proceeding. Typically, each member of the surgical team (which includes resident physicians, medical students, and students of allied health professions under the supervision of a clinician-educator) performs an EUA in order that all of them have an understanding of the relevant anatomy. The patient states understanding of this and gives explicit consent to student performance of EUA. She signed the surgical consent form after all her questions were answered. The preoperative orders will be entered into the [facility] clinical information system(CIS). Medication list reviewed, updated, and reconciled. Problem list reviewed and updated where necessary. Surgical history reviewed and updated where necessary. Obstetrical history reviewed and updated where necessary. Please note that voice recognition software may have been used in the generation of this note and be aware for possible errors in master rigger. Patient Care team information Care Team Personnel Name: Martha Fernandez NP Position: Reference Physician Member Role: Primary Care Nurse Address: [address] [place] [id number] Telecom: Name: Ruthie Mosqueda Position: [facility] Outreach Member Role: Lifetime Consulting Physician Name: Rosaura Sy MD Position: [facility] Outreach Member Role: Lifetime Consulting Physician Name: Garland Jaeger DO Position: [facility] Renal MD Member Role: Lifetime Consulting Physician Address: [address] [place], [place] [address] [place] [address] [place] Telecom: Name: Not on Staff, PCP Position: [facility] Physician (General Medicine) Member Role: PCP Name: Clem Bright NP Position: [facility] PCO Associate Professional Member Role: Primary Care Nurse Address: [address] [place] [address] [address] [place] [address]- [place] Telecom: Name: Surekha Yun RN Position: S RN Member Role: Primary Care Nurse Name: Simran Dupont RN Position: [facility] RN Member Role: Primary Care Nurse Care Team Related Persons Name: LORRAINE YADAV Name: ALAN ORTIZ Name: JESUS BRAN Insurance Providers Guarantor name: CAMERON BRAN Health Plan Information #: 1 Payer: NA Member Number: [id number] Policy Number: NA Group Number: NA Health Plan Information #: 2 Payer: NA Member Number: [id number] Policy Number: NA Group Number: NA
[2024-02-23 12:48] VITALS: BP 160/57; PULSE 79; RESP 16; TEMP 36.7; O2SAT 94
== END 2024-02-23 12:49 | disposition home or self-care (01) ==
PROVIDERS: Emergency Provider Emergency Medicine; PCP Internal Medicine
DX: T82.838A Hemorrhage due to vascular prosthetic devices, implants and grafts, initial encounter (principal); Y82.9 Unspecified medical devices associated with adverse incidents; Y92.89 Other specified places as the place of occurrence of the external cause; E11.22 Type 2 diabetes mellitus with diabetic chronic kidney disease; I13.10 Hypertensive heart and chronic kidney disease without heart failure, with stage 1 through stage 4 chronic kidney disease, or unspecified chronic kidney disease; N18.9 Chronic kidney disease, unspecified
CPT/HCPCS: 99283